=== PATIENT | female | born 1950 | race Caucasian/White ===

== ENCOUNTER → 2018-04-03 12:59 | Outpatient (CLI) | payer MEDICARE, OTHER, SELFPAY ==
--- NOTE | 2018-04-03 13:14 | BI_ITS ---
MAMMOGRAPHY - BILATERAL SCREENING REASON FOR EXAM: Female, 67 years old. Routine annual screening examination. PERTINENT HISTORY: Mother with breast cancer. Aunt with breast cancer. TECHNIQUE: Digital bilateral breast josie (3D mammographic acquisition) in the CC and MLO projections. 2-D mediolateral oblique (MLO) and craniocaudad (CC) views of both breasts were obtained. CAD: Full Field Digital Mammography with Computer Added Detection was performed. COMPARISON: Comparison is made with prior examination dated November 19, 2016. FINDINGS: Breast Composition: The breasts are extremely dense, which lowers the sensitivity of mammography. There are no dominant masses or suspicious calcifications. No other significant abnormalities are identified. There has been no significant change since the prior study. BI/SCREENING MAMM (CAD), BILAT IMPRESSION: Stable bilateral screening mammogram. Yearly follow-up mammogram recommended. (A) ASSESSMENT CATEGORY: BIRADS Category 1: Negative. A letter regarding these results will be sent to the patient by the facility within 30 days. Approximately 10% of breast cancers are not detected by mammography. A normal mammogram should not delay biopsy of a clinically suspicious abnormality. [id number] Electronically Signed: Laron Olivares MD at 12:24 EDT Tel [phone], Service support ,
== END ==
PROVIDERS: Family Provider Family Medicine; PCP Family Medicine; Visit Provider Obstetrics & Gynecology
DX: Z12.31 Encounter for screening mammogram for malignant neoplasm of breast (principal)
CPT/HCPCS: 77063; 77067

== ENCOUNTER → 2019-05-25 | Outpatient (CLI) | payer MEDICARE, OTHER, SELFPAY ==
--- NOTE | 2019-05-25 10:21 | BD_ITS ---
STUDY: DUAL ENERGY X-RAY ABSORPTIOMETRY / DXA REASON FOR EXAM: Female, 68 years old. The patient is postmenopausal. Loss of height. TECHNIQUE: Bone Mineral Density (BMD) measurements of lumbar spine and bilateral hips were obtained. COMPARISON: None. FINDINGS: Lumbar Spine (L1-L4): g/cm2 (0.913) / T-score (-2.1) / Z-score (-0.5) Findings are suggestive of osteopenia with a moderate fracture risk. Left Femur Total: g/cm2 (0.795) / T-score (-1.7) / Z-score (-0.4) Left Femoral Neck: g/cm2 (0.734) / T-score (-2.2) / Z-score (-0.6) Right Femur Total: g/cm2 (0.805) / T-score (-1.6) / Z-score (-0.3) Right Femoral Neck: g/cm2 (0.725) / T-score (-2.2) / Z-score (-0.7) BD/Dexa Bone Density Study IMPRESSION: The patient is considered osteopenic as outlined below according to World Lobo Organization (WHO) criteria with a moderate fracture risk. Reference Information: The T-score is the number of standard deviations above or below the standard which is normal for young adults at their peak bone mineral density. The World Health Organization (WHO) interprets the T-scores as follows: Above -1 Normal bone density Between -1 and -2.5 Osteopenia Equal to / or below -2.5 Osteoporosis As a practical clinical guideline, osteopenia may be graded as follows: Mild -1 through -1.5 Moderate -1.6 through -2.0 Severe -2.1 through -2.4 The Z-score is the number of standard deviations above or below age-matched controls. A Z-score of less than -1.5 would be considered abnormal. References: 1. NIH Osteoporosis and Related Bone Diseases http://www.osteo.org 2. International Society for Clinical Densitometry http://www.iscd.org 3. National Osteoporosis Foundation http://www.nof.org Electronically Signed: Laron Olivares, at 10:20 EDT , Service support ,
--- NOTE | 2019-05-25 10:23 | BI_ITS ---
MAMMOGRAPHY - BILATERAL SCREENING 3-D TOMOSYNTHESIS REASON FOR EXAM: Female, 68 years old. Bilateral Screening 3-D tomosynthesis PERTINENT HISTORY: Family history of breast cancer in mother in ninth decade. TECHNIQUE: 2-D mammograms and 3-D Tomosynthesis of the breast (s) were performed. CAD was performed. COMPARISON: April 03, 2018 FINDINGS: The breast composition is composed of scattered fibroglandular density. Scattered benign calcifications are seen. No dense spiculated masses or suspicious microcalcifications are identified. No architectural distortion is identified. There is no skin thickening or retraction. There has been no significant change since the prior study. BI/SCREEN MAMM (CAD) W/GRANT BILAT IMPRESSION: No mammographic signs of malignancy. Routine yearly mammograms recommended. ASSESSMENT CATEGORY: BIRADS Category 2: Benign. A letter regarding these results will be sent to the patient by the facility within 30 days. FOLLOW UP RECOMMENDATION: Yearly follow up mammogram recommended. (A) Approximately 10% of breast cancers are not detected by mammography. A normal mammogram should not delay biopsy of a clinically suspicious abnormality. Electronically Signed: Jose R Zuniga MD at 14:28 EDT , Service support ,
== END | disposition home or self-care (01) ==
LOC: OPBD 10:18
PROVIDERS: Family Provider Family Medicine; PCP Family Medicine; Referring Provider Family Medicine; Visit Provider Family Medicine
DX: Z12.31 Encounter for screening mammogram for malignant neoplasm of breast (principal); M81.0 Age-related osteoporosis without current pathological fracture; M85.80 Other specified disorders of bone density and structure, unspecified site
CPT/HCPCS: 77063; 77067; 77080

== ENCOUNTER → 2020-06-28 08:17 | Outpatient (CLI) | payer MEDICARE, OTHER, SELFPAY ==
--- NOTE | 2020-06-28 08:20 | BI_ITS ---
MAMMOGRAPHY - BILATERAL SCREENING REASON FOR EXAM: Female, 69 years old. Routine annual screening examination. PERTINENT HISTORY: Mother with breast cancer. Aunts with breast cancer. TECHNIQUE: Digital bilateral breast grant (3D mammographic acquisition) in the CC and MLO projections. 2-D mediolateral oblique (MLO) and craniocaudad (CC) views of both breasts were obtained. CAD: Full Field Digital Mammography with Computer Added Detection was performed. COMPARISON: Comparison is made with prior study dated 05/25/2019 and 04/03/2018. FINDINGS: Breast Composition: The breasts are heterogeneously dense, which may obscure small masses. There are no dominant masses or suspicious calcifications. No other significant abnormalities are identified. There has been no significant change since the prior study. BI/SCREEN MAMM (CAD) W/GRANT BILAT IMPRESSION: Stable bilateral screening mammogram. Yearly follow-up mammogram recommended. (A) ASSESSMENT CATEGORY: BIRADS Category 1: Negative. A letter regarding these results will be sent to the patient by the facility within 30 days. Approximately 10% of breast cancers are not detected by mammography. A normal mammogram should not delay biopsy of a clinically suspicious abnormality. [id number] Electronically Signed: Laron Olivares, at 9:22 EDT , Service support ,
== END ==
PROVIDERS: PCP Family Medicine; Referring Provider Family Medicine; Visit Provider Family Medicine
DX: Z12.31 Encounter for screening mammogram for malignant neoplasm of breast (principal)
CPT/HCPCS: 77063; 77067

== ENCOUNTER 2021-01-24 10:25 | Outpatient (RCR) | payer MEDICARE, OTHER, SELFPAY | END 2021-01-24 23:59 | LOC: IMMUN 10:25 | PROVIDERS: PCP Family Medicine; Referring Provider Family Medicine; Visit Provider Family Medicine | DX: Z23 Encounter for immunization (principal) | CPT/HCPCS: 0011A; 0012A; 91301 ==

== ENCOUNTER → 2021-07-13 07:08 | Outpatient (CLI) | payer MEDICARE, OTHER, SELFPAY ==
--- NOTE | 2021-07-13 07:13 | BI_ITS ---
MAMMOGRAPHY - BILATERAL SCREENING REASON FOR EXAM: Female, 70 years old. Routine annual screening examination. PERTINENT HISTORY: Mother with breast cancer. Aunts with breast cancer. TECHNIQUE: Digital bilateral breast grant (3D mammographic acquisition) in the CC and MLO projections. 2-D mediolateral oblique (MLO) and craniocaudad (CC) views of both breasts were obtained. CAD: Full Field Digital Mammography with Computer Added Detection was performed. COMPARISON: Comparison is made with prior study dated 06/28/2020 and 05/25/2019. FINDINGS: Breast Composition: The breasts are heterogeneously dense, which may obscure small masses. There are no dominant masses or suspicious calcifications. Stable small benign-appearing bilateral axillary lymph nodes. No other significant abnormalities are identified. There has been no significant change since the prior study. BI/SCRN MAMM (CAD)W/GRANT BILAT IMPRESSION: Stable bilateral screening mammogram. Yearly follow-up mammogram recommended. (A) ASSESSMENT CATEGORY: BIRADS Category 2: Benign. A letter regarding these results will be sent to the patient by the facility within 30 days. Approximately 10% of breast cancers are not detected by mammography. A normal mammogram should not delay biopsy of a clinically suspicious abnormality. [id number] Electronically Signed: Laron Olivares MD at 9:13 EDT , Service support ,
== END ==
PROVIDERS: PCP Family Medicine; Referring Provider Family Medicine; Visit Provider Family Medicine
DX: Z12.31 Encounter for screening mammogram for malignant neoplasm of breast (principal)
CPT/HCPCS: 77063; 77067

== ENCOUNTER → 2021-08-29 08:28 | Outpatient (CLI) | payer MEDICARE, OTHER, SELFPAY ==
--- NOTE | 2021-08-29 08:30 | US_ITS ---
STUDY: ULTRASOUND OF THE FEMALE PELVIS - COMPLETE REASON FOR EXAM: Female, 70 years old. pmb- s/p hysterectomy and uterine CA LMP: Patient is postmenopausal. TECHNIQUE: Transabdominal and Transvaginal TECHNICAL QUALITY: Adequate. COMPARISON: None. FINDINGS: The patient is status post hysterectomy. The right ovary is visualized. The right ovary measures cm. There is no right ovarian cyst or ovarian mass. There is no visualized right adnexal mass or complex lesion. There is normal arterial and normal venous vascularity. The ovaries were not visualized. Presumably surgically removed. There is no fluid in the cul-de-sac. US/Transvaginal Non- IMPRESSION: Status post hysterectomy. The ovaries were not visualized. Electronically Signed: Laron Olivares MD at 10:21 EDT , Service support ,
--- NOTE | 2021-08-29 08:30 | US_ITS ---
STUDY: ULTRASOUND OF THE FEMALE PELVIS - COMPLETE REASON FOR EXAM: Female, 70 years old. pmb- s/p hysterectomy and uterine CA LMP: Patient is postmenopausal. TECHNIQUE: Transabdominal and Transvaginal TECHNICAL QUALITY: Adequate. COMPARISON: None. FINDINGS: The patient is status post hysterectomy. The right ovary is visualized. The right ovary measures cm. There is no right ovarian cyst or ovarian mass. There is no visualized right adnexal mass or complex lesion. There is normal arterial and normal venous vascularity. The ovaries were not visualized. Presumably surgically removed. There is no fluid in the cul-de-sac. US/Pelvic (Non ) IMPRESSION: Status post hysterectomy. The ovaries were not visualized. Electronically Signed: Laron Olivares MD at 10:21 EDT , Service support ,
== END ==
PROVIDERS: PCP Family Medicine; Referring Provider Obstetrics & Gynecology; Visit Provider Obstetrics & Gynecology
DX: N93.9 Abnormal uterine and vaginal bleeding, unspecified (principal)
CPT/HCPCS: 76830; 76856

== ENCOUNTER → 2022-07-17 | Outpatient (CLI) | payer MEDICARE, OTHER, SELFPAY ==
--- NOTE | 2022-07-17 09:30 | BD_ITS ---
STUDY: DUAL ENERGY X-RAY ABSORPTIOMETRY / DXA REASON FOR EXAM: Female, 71 years old. M85.80. Patient is postmenopausal. TECHNIQUE: Bone Mineral Density (BMD) measurements of lumbar spine and bilateral hips were obtained. COMPARISON: Comparison is made with prior study dated 05/25/2019. FINDINGS: Lumbar Spine (L1-L4): g/cm2 (0.809) / T-score (-2.2) / Z-score (0.0) Findings are suggestive of osteopenia with a high fracture risk. Left Femur Total: g/cm2 (0.758) / T-score (-1.5) / Z-score (0.0) Left Femoral Neck: g/cm2 (0.608) / T-score (-2.2) / Z-score (-0.3) Right Femur Total: g/cm2 (0.762) / T-score (-1.5) / Z-score (0.1) Right Femoral Neck: g/cm2 (0.557) / T-score (-2.6) / Z-score (-0.8) The T-Scores on the most recent prior examination were: Lumbar Spine (L1-L4): There has been worsening of bone density since the previous examination. Left Femur Total: which represents an improvement of 3.1%. Right Femur Total: which represents an improvement of 2.3%. BD/Dexa Bone Density Study IMPRESSION: The patient is considered osteopenic as outlined below according to World Lobo Organization (WHO) criteria with a high fracture risk. There has been improvement of bone density since the previous examination. Reference Information: The T-score is the number of standard deviations above or below the standard which is normal for young adults at their peak bone mineral density. The World Health Organization (WHO) interprets the T-scores as follows: Above -1 Normal bone density Between -1 and -2.5 Osteopenia Equal to / or below -2.5 Osteoporosis As a practical clinical guideline, osteopenia may be graded as follows: Mild -1 through -1.5 Moderate -1.6 through -2.0 Severe -2.1 through -2.4 The Z-score is the number of standard deviations above or below age-matched controls. A Z-score of less than -1.5 would be considered abnormal. References: 1. NIH Osteoporosis and Related Bone Diseases www osteo.org 2. International Society for Clinical Densitometry www iscd.org 3. National Osteoporosis Foundation www nof.org Electronically Signed: Laron Olivares MD at 12:36 EDT ,
--- NOTE | 2022-07-17 09:37 | BI_ITS ---
MAMMOGRAPHY - BILATERAL SCREENING 3-D TOMOSYNTHESIS REASON FOR EXAM: Female, 71 years old. SCREENING PERTINENT HISTORY: No significant family history. TECHNIQUE: 2-D mammograms and 3-D Tomosynthesis of the breast (s) were performed. CAD was performed. COMPARISON: 07/13/2021 FINDINGS: The breast composition is Extermely dense tissue. Scattered benign calcifications are seen. No dense spiculated masses or suspicious microcalcifications are identified. No architectural distortion is identified. There is no skin thickening or retraction. There has been no significant change since the prior study. BI/SCRN MAMM (CAD)W/GRANT BILAT IMPRESSION: No mammographic signs of malignancy. Routine yearly mammograms recommended. ASSESSMENT CATEGORY: BIRADS Category 1: Negative. A letter regarding these results will be sent to the patient by the facility within 30 days. FOLLOW UP RECOMMENDATION: Yearly follow up mammogram recommended. (A) Approximately 10% of breast cancers are not detected by mammography. A normal mammogram should not delay biopsy of a clinically suspicious abnormality. Electronically Signed: Douglas Bowie MD at 10:21 EDT ,
== END | disposition home or self-care (01) ==
LOC: OPBD 09:19
PROVIDERS: PCP Family Medicine; Referring Provider Family Medicine; Visit Provider Family Medicine
DX: Z12.31 Encounter for screening mammogram for malignant neoplasm of breast (principal); M85.80 Other specified disorders of bone density and structure, unspecified site; Z78.0 Asymptomatic menopausal state
CPT/HCPCS: 77063; 77067; 77080

== ENCOUNTER → 2023-08-08 | Outpatient (CLI) | payer MEDICARE, OTHER, SELFPAY ==
--- NOTE | 2023-08-08 08:11 | BI_ITS ---
MAMMOGRAPHY - BILATERAL SCREENING REASON FOR EXAM: Female, 72 years old. Routine annual screening examination. PERTINENT HISTORY: Mother with breast cancer. Aunt with breast cancer. TECHNIQUE: Digital bilateral breast grant (3D mammographic acquisition) in the CC and MLO projections. 2-D mediolateral oblique (MLO) and craniocaudad (CC) views of both breasts were obtained. CAD: Full Field Digital Mammography with Computer Added Detection was performed. COMPARISON: Comparison is made with prior study dated July 17, 2022 and July 13, 2021 FINDINGS: Breast Composition: The breasts are extremely dense, which lowers the sensitivity of mammography. There are no dominant masses or suspicious calcifications. No other significant abnormalities are identified. There has been no significant change since the prior study. BI/SCRN MAMM (CAD)W/GRANT BILAT IMPRESSION: Stable bilateral screening mammogram. Yearly follow-up mammogram recommended. (A) ASSESSMENT CATEGORY: BIRADS Category 1: Negative. A letter regarding these results will be sent to the patient by the facility within 30 days. Approximately 10% of breast cancers are not detected by mammography. A normal mammogram should not delay biopsy of a clinically suspicious abnormality. [id number] Electronically Signed: Laron Olivares MD at 10:20 EDT ,
== END | disposition home or self-care (01) ==
LOC: OPBI 08:09
PROVIDERS: PCP Family Medicine; Referring Provider Family Medicine; Visit Provider Family Medicine
DX: Z12.31 Encounter for screening mammogram for malignant neoplasm of breast (principal); Z80.3 Family history of malignant neoplasm of breast
CPT/HCPCS: 77063; 77067

== ENCOUNTER → 2024-01-23 | Outpatient (CLI) | payer MEDICARE, OTHER, SELFPAY ==
[2024-01-23 12:28] LABS: Absolute Lymphocyte Count 1.22 X10^3/uL (0.83-4.51); Absolute Neutrophil Count 2.8 X10^3/uL (2.0-7.7); Basophil# 0.02 X10^3/uL; Basophil% 0.4 % (0-1); Eosinophil# 0.21 X10^3/uL; Eosinophils% 4.6 % (0-5); Hematocrit 44.3 % (37-47); Hemoglobin 14.2 g/dL (12.0-15.0); Lymphocyte # 1.22 X10^3/ul (0.83-4.51); Lymphocyte % 26.6 % (19-41); Mean Corp Hgb Conc 32.1 g/dL (32-36); Mean Corpuscular Volume 93.5 fL (81-99); Mean Platelet Vol. 11.1 fl (6.2-12.0); Monocyte# 0.34 X10^3/uL; Monocyte% 7.4 % (0-10); NRBC Flagged by Analyzer 0 % (0-5); Neutrophil # 2.79 X10^3/uL (2.7-7.7); Neutrophil % 60.8 % (47-70); Platelet Count 199 K/mm3 (150-450); RBC Distribution Width CV 13.1 % (11.6-14.6); RBC Distribution Width SD 44.9 fl (35.1-43.9); Red Blood Count 4.74 M/mm3 (4.2-5.4); White Blood Count 4.6 K/mm3 (4.4-11.0)
[2024-01-23 12:47] LABS: AST(SGOT) 17 U/L (15-37); Alanine Aminotransfer ALT/SGPT 25 U/L (13-56); Albumin, Serum 3.6 g/dL (3.2-5.0); Alkaline Phosphatase 83 U/L (45-117); Anion Gap 4 (5-15); BUN 19 mg/dL (7-18); BUN/Creat Ratio 18.4 RATIO (10-20); Calcium,Total 9.5 mg/dL (8.5-10.1); Chloride 107 mmol/L (98-107); Creatinine, Serum 1.03 mg/dL (0.55-1.02); EST Glomerular Filtration Rate 56 mL/min (>60); Est Glom Filt Rate - Afr Amer 68 mL/min (>60); Globulin 3.6 g/dL (2.2-4.2); Glucose 95 mg/dL (74-106); Potassium 4.2 mmol/L (3.5-5.1); Protein, Total 7.2 g/dL (6.4-8.2); Sodium Level 141 mmol/L (136-145)
== END | disposition home or self-care (01) ==
LOC: BFHLAB 10:18
PROVIDERS: PCP Family Medicine; Visit Provider Nurse Practitioner Family
DX: R42 Dizziness and giddiness (principal)
CPT/HCPCS: 36415; 80053; 85025

== ENCOUNTER 2024-07-03 09:00 | Inpatient (IN) | payer MEDICARE, OTHER, SELFPAY ==
[2024-07-03] VITALS (12 sets, daily range): BP systolic 95–156; BP diastolic 52–127; PULSE 70–155; RESP 14–30; TEMP 36.1–36.8; O2SAT 95–99; BMI 22.3; BMI 22.0
--- NOTE | 2024-07-03 09:19 | RAD_ITS ---
STUDY: X-RAY CHEST REASON FOR EXAM: Female, 73 years old. cad TECHNIQUE: Single AP portable view of the chest. COMPARISON: None. FINDINGS: Moderate patchy interstitial infiltrates are present in the bilateral mid to lower lung maciel likely due to superimposed pneumonia on background of chronic interstitial lung disease/pneumonitis. Cystic emphysematous changes and mild hyperinflation noted. No visualized pleural effusion. The heart is mildly enlarged. Normal mediastinum and moncho. Normal visualized pulmonary arteries. There is atherosclerotic calcification of the aortic arch with tortuosity. There are diffuse degenerative changes of the visualized thoracic spine. Normal visualized ribs, clavicles, and shoulders. There is no demonstrated abnormality of the visualized soft tissue structures of the upper abdomen. RAD/Chest 1 View (Portable) IMPRESSION: 1. Moderate patchy interstitial infiltrates are present in the bilateral mid to lower lung maciel likely due to superimposed pneumonia on background of chronic interstitial lung disease/pneumonitis. Cystic emphysematous changes and mild hyperinflation noted. Electronically Signed: Vinod Hernández MD at 10:16 EDT ,
--- NOTE | 2024-07-03 09:20 | EKG12_ITS ---
Test Reason : PALPS Blood Pressure : / mmHG Vent. Rate : 159 BPM Atrial Rate : 147 BPM P-R Int : 000 ms QRS Dur : 116 ms QT Int : 302 ms P-R-T Axes : 000 044 226 degrees QTc Int : 491 ms Critical Test Result: High HR , STEMI AFIB WITH RVR Left ventricular hypertrophy with QRS widening and repolarization abnormality ( Sokolow-Barba , Kahlil l product ) Abnormal ECG Confirmed by Alonso Falcon ([id number]), graphics editor COLTEN HOLLY ([id number]) on 07/05/2024 2:15:09 PM Referred By: TIA Confirmed By:Alonso Falcon
--- NOTE | 2024-07-03 09:20 | EKG12_ITS ---
Test Reason : PALPS Blood Pressure : / mmHG Vent. Rate : 154 BPM Atrial Rate : 000 BPM P-R Int : 000 ms QRS Dur : 116 ms QT Int : 264 ms P-R-T Axes : 000 045 228 degrees QTc Int : 422 ms Critical Test Result: High HR Atrial fibrillation with rapid ventricular response with premature ventricular or aberrantly conducte d complexes Left ventricular hypertrophy with QRS widening ( Sokolow-Barba , [place] product ) Cannot rule out Septal infarct , age undetermined ST & T wave abnormality, consider lateral ischemia Abnormal ECG Confirmed by Alonso Falcon ([id number]), avid editor COLTEN HOLLY ([id number]) on 07/05/2024 2:14:25 PM Referred By: TIA Confirmed By:Alonso Falcon
[2024-07-03] MEDS: dilTIAZem 25 MG/5 ML Vial 10 MG IV BOLUS (09:25)
[2024-07-03 09:33] LABS: Absolute Lymphocyte Count 2.05 X10^3/uL (0.83-4.51); Absolute Neutrophil Count 4.2 X10^3/uL (2.0-7.7); Basophil# 0.04 X10^3/uL; Basophil% 0.6 % (0-1); Eosinophil# 0.13 X10^3/uL; Eosinophils% 1.9 % (0-5); Hematocrit 46.4 % (37-47); Hemoglobin 14.5 g/dL (12.0-15.0); Lymphocyte # 2.05 X10^3/ul (0.83-4.51); Lymphocyte % 29.8 % (19-41); Mean Corp Hgb Conc 31.3 g/dL (32-36); Mean Corpuscular Hgb 28.6 pg (27.0-32.0); Mean Corpuscular Volume 91.5 fL (81-99); Mean Platelet Vol. 10.8 fl (6.2-12.0); Monocyte# 0.44 X10^3/uL; Monocyte% 6.4 % (0-10); NRBC Flagged by Analyzer 0 % (0-5); Neutrophil # 4.21 X10^3/uL (2.7-7.7); Platelet Count 220 K/mm3 (150-450); RBC Distribution Width CV 13.3 % (11.6-14.6); RBC Distribution Width SD 44.5 fl (35.1-43.9); Red Blood Count 5.07 M/mm3 (4.2-5.4); White Blood Count 6.9 K/mm3 (4.4-11.0)
[2024-07-03 09:53] LABS: ALB/GLOB Ratio 0.9 RATIO (0.9-2.4); AST(SGOT) 185 U/L (15-37); Alanine Aminotransfer ALT/SGPT 192 U/L (13-56); Albumin, Serum 3.7 g/dL (3.2-5.0); Alkaline Phosphatase 125 U/L (45-117); Anion Gap 4 (5-15); BUN 23 mg/dL (7-18); BUN/Creat Ratio 18.4 RATIO (10-20); Calcium,Total 9.2 mg/dL (8.5-10.1); Chloride 111 mmol/L (98-107); Creatinine, Serum 1.25 mg/dL (0.55-1.02); EST Glomerular Filtration Rate 45 mL/min (>60); Est Glom Filt Rate - Afr Amer 54 mL/min (>60); Estimated Creatinine Clearance 36.61 ml/min; Globulin 3.9 g/dL (2.2-4.2); Glucose 101 mg/dL (74-106); Potassium 4.1 mmol/L (3.5-5.1); Protein, Total 7.6 g/dL (6.4-8.2); Sodium Level 142 mmol/L (136-145); Thyroid Stim Hormone (TSH) 8.94 uIU/mL (0.358-3.74); Troponin-I HS 26 pg/mL (3.0-54.0)
[2024-07-03 10:04] LABS: BNP,B-Type NATRIURETIC PEPTIDE 741.1 pg/mL (0-100)
[2024-07-03 10:33] LABS: Bacteria 0 SEEN /hpf (None Seen); Mucous, Urine 0 SEEN /hpf (<or=2+); Red Blood Cells-Urine 0 SEEN /hpf (0-5); Squamous Epithelial Cells - UA 0 SEEN /hpf (5-10); White Blood Cells 0 SEEN /hpf (0-5)
[2024-07-03 10:45] LABS: Color, Urine Yellow (Yellow); Glucose, Dipstick Normal (Normal); Ketone-Dipstick Negative (Negative); Leukocyte Esterase-Dipstick 25 /ul (Negative); Nitrite-Dipstick Negative (Negative); Occult Blood-Urine 10 /ul (Negative); Protein-Dipstick 15 mg/dl (Negative); Urine Bilirubin Dipstick Negative (Negative); Urine Clarity Clear (Clear); Urine Urobilinogen Normal (Normal)
[2024-07-03] MEDS: Furosemide 40 MG/4 ML Vial IV ×2 (10:47→17:04)
--- NOTE | 2024-07-03 10:51 | EX.ED.DYSGE1 ---
HPI History of Present Illness Chief Complaint: Palpitations Narrative Narrative: 73-year-old female presents with heart palpitations that she has had for possibly up to a week. Her symptoms began to become more intense on , 3 days ago. She denies any chest pain, but states she feels her heart flip-flopping in her chest. No leg swelling, no fevers or chills, no exacerbating or alleviating factors. She does states that she has history of heart murmur, and has irregular heartbeat as she has had it for years. Her who is a retired ER nurse states that she has more of a mitral valve incompetence causing her murmur. She has noticed this feeling almost consistently for the last 3 days. She may have more of a generalized weakness as well. She is supposed to go on vacation tomorrow, so she wanted to come to the ED and get checked as to why she had this feeling in her chest. [facility] Medical History Osteopenia Hyperlipidemia Home Medications ?Medication ?Instructions ?Recorded ?Last Taken ?Type calcium carbonate (Calcium 500) 500 mg PO DAILY 09/04/21 Unknown History simvastatin 20 mg tablet 20 mg PO DAILY 09/04/21 Unknown History flaxseed oil .ROUTE 07/03/24 Unknown History Allergy/AdvReac Type Severity Reaction Status Date / Time No Known Allergies Allergy Verified 07/03/24 09:03 Family History Mother Breast cancer Congestive heart failure Osteoporosis Grandmother Diabetes Osteoporosis Surgical History H/O dilation and curettage History of hysterectomy Social History household members: spouse and children current occupational status: retired history of recent travel: No Smoking Status: Never smoker alcohol intake: current alcohol intake frequency: holidays/special occasions only substance use type: does not use what type of physical activity do you participate in: walking, yoga and weight training frequency: 3-4 times per week seatbelt use: always do you feel safe at home: Yes additional social history: - Dylan ROS ROS ED ROS Narrative Constitutional: No fever, no chills. Occasional fatigue. Generalized weakness. HEENT: No sore throat. No neck pain. No loss of vision. No rhinorrhea. Cardiovascular: No chest pain. Questionable palpitations she feels her heart flip-flopping in her chest. No pedal edema. Respiratory: No cough, no shortness of breath. Abdominal: No abdominal pain. No nausea. No vomiting. Genitourinary: No dysuria. No hematuria. Musculoskeletal: No myalgias. No arthralgias. Neurologic: No headaches. No dizziness. No lightheadedness. Skin: No rash. No change in color. Psychiatric: No depression. No anxiety. EXAM Physical Exam Narrative Exam Narrative: Afebrile. Vital signs noted. HEENT: Normocephalic. Atraumatic. PERRL, EOMI. Neck soft and supple. No point tenderness or step off. Cardiovascular: Irregular tachycardia no rubs, or gallops appreciated. Respiratory: No tachypnea. Lungs clear to auscultation bilaterally. Gastrointestinal: Abdomen soft, nontender, with normoactive bowel sounds. No rebound or guarding. Neurological: Awake. Alert. Nonfocal, nonlateralizing. Skin: No rash. Normal color. No pallor. Musculoskeletal: No pedal edema. Full range of motion extremities. Const Vital Signs: 07/03/24 09:01 07/03/24 09:05 07/03/24 09:14 Temperature 97.2 F L Temperature Source Temporal Pulse Rate 89 155 H Respiratory Rate 16 30 H Respiratory Effort Normal Non-Labored Blood Pressure 156/127 H 126/106 H Blood Pressure Mean 136 112 Pulse Ox 97 95 Oxygen Delivery Method Room Air Room Air 07/03/24 09:36 07/03/24 11:00 Temperature Temperature Source Pulse Rate 107 H 105 H Respiratory Rate 18 Respiratory Effort Blood Pressure 127/93 H Blood Pressure Mean 104 Pulse Ox 98 Oxygen Delivery Method Room Air MDM MDM MDM Narrative Medical decision making narrative: Differential diagnosis includes but not limited to supraventricular tachycardia versus atrial fibrillation versus sinus tachycardia. Patient was placed on the monitor, and initial EKG was obtained and interpreted by myself independently as supraventricular tachycardia at [address] changes. No STEMI. As she has never had problems with atrial fibrillation in the past and just noted irregular heartbeat, she was administered adenosine 6 mg intravenously. Underlying rhythm appeared to be more of an atrial fibrillation versus flutter. She was administered Cardizem 10 mg intravenously with a resultant heart rate at 107 bpm. I reviewed her laboratory work and she has normal white count of 6.9 with hemoglobin 14.5, hematocrit 46.4, platelet count normal at 220. Electrolyte panel shows chloride elevated at 111 which I think is nonspecific with potassium 4.1, BUN of 23 and creatinine 1.25. Glucose is appropriately elevated at 101. LFTs are elevated at 185 and 192 with an alk phos of 125. High-sensitivity troponin is normal at 26, BNP is elevated at 741.1. TSH is also high at 8.94. Chest x-ray in 1 view interpreted by myself does show bilateral fluffy infiltrates more consistent with CHF when combined with her elevated BNP. She was administered Lasix 40 mg intravenously. This may be that she has been an atrial fibrillation/flutter with a heart rate elevated for a longer period of time. As this is new onset, I do feel that she requires admission to the hospital. Patient discussed with the hospitalist for admission. She is in stable condition. History & Record Review Discussion w/independent historian: Patient and Family Lab Data Attestation: I reviewed the patient's lab results. Labs: Laboratory Results - last 24 hr 07/03/24 07/03/24 09:15 10:25 WBC 6.9 RBC 5.07 Hgb 14.5 Hct 46.4 MCV 91.5 MCH 28.6 MCHC 31.3 L RDW Std Deviation 44.5 H RDW Coeff of Sandi 13.3 Plt Count 220 MPV 10.8 Immature Gran % (Auto) 0.300 Neut % (Auto) 61.0 Lymph % (Auto) 29.8 [place] % (Auto) 6.4 Eos % (Auto) 1.9 Baso % (Auto) 0.6 Absolute Neuts (auto) 4.2 Absolute Lymphs (auto) 2.05 Nucleated RBC % 0 Sodium 142 Potassium 4.1 Chloride 111 H Carbon Dioxide 27.0 Anion Gap 4 L BUN 23 H Creatinine 1.25 H Estim Creat Clear Calc 36.61 Est GFR (MDRD) Af Amer 54 L Est GFR (MDRD) Non-Af 45 L BUN/Creatinine Ratio 18.4 Glucose 101 Calcium 9.2 Magnesium 2.0 Total Bilirubin 1.30 H AST 185 H ALT 192 H Alkaline Phosphatase 125 H Troponin I High Sens 26 B-Natriuretic Peptide 741.1 H Total Protein 7.6 Albumin 3.7 Globulin 3.9 Albumin/Globulin Ratio 0.9 TSH 8.94 H Urine Color Yellow Urine Clarity Clear Urine pH 7.0 Ur Specific [place] 1.010 Urine Protein 15 H Urine Glucose (UA) Normal Urine Ketones Negative Urine Occult Blood 10 H Urine Nitrite Negative Urine Bilirubin Negative Urine Urobilinogen Normal Ur Leukocyte Esterase 25 H Urine RBC 0 SEEN Urine WBC 0 SEEN Ur Squamous Epith Cells 0 SEEN Urine Bacteria 0 SEEN Hyaline Casts 0-5 SEEN Urine Mucus 0 SEEN Radiography Diagnostic Testing: Clinical Impression(s) from Imaging Studies Chest X-Ray 07/03/24 09:19 IMPRESSION: 1. Moderate patchy interstitial infiltrates are present in the bilateral mid to lower lung maciel likely due to superimposed pneumonia on background of chronic interstitial lung disease/pneumonitis. Cystic emphysematous changes and mild hyperinflation noted. Electronically Signed: Vinod Hernández MD at 10:16 EDT Reading Location ID and State: [address] [place] [address] , Service support , Management Discussion w/another healthcare provider: Hospitalist (Dr. Park) Discharge Plan Dx/Rx/DC Orders Clinical Impression: New onset atrial fibrillation, CHF (congestive heart failure), Elevated TSH, Elevated LFTs Disposition Disposition: Acute Care [facility]
--- NOTE | 2024-07-03 10:57 | EKG12_ITS ---
Test Reason : REPEAT Blood Pressure : / mmHG Vent. Rate : 118 BPM Atrial Rate : 000 BPM P-R Int : 000 ms QRS Dur : 116 ms QT Int : 292 ms P-R-T Axes : 000 039 -37 degrees QTc Int : 409 ms Atrial fibrillation with rapid ventricular response Left ventricular hypertrophy with QRS widening and repolarization abnormality ( Sokolow-Barba , Kahlil l product ) Cannot rule out Septal infarct , age undetermined Abnormal ECG Confirmed by Alonso Falcon ([id number]), sports editor COLTEN HOLLY ([id number]) on 07/05/2024 2:13:55 PM Referred By: Confirmed By:Alonso Falcon
[2024-07-03 11:04] LABS: Hyaline Cast 0-5 SEEN /lpf (0-5)
--- NOTE | 2024-07-03 11:13 | PCM.HP.STD ---
HPI - General General Date of Admission: 07/03/24 Date of Service: 07/03/24 Chief Complaint: Palpitations and shortness of breath with exertion HPI Narrative SAMY THURMAN, is a 73 F who presented to [facility] ED on 07/03/2024 with palpitations and shortness of breath with exertion. Patient states that the palpitations have been ongoing for about 1 week. She previously had history of a irregular heartbeat of unclear significance so she did not think much of the palpitations at first. However, they became more intense over the past 2 to 3 days and she began to develop some shortness of breath with exertion yesterday. Was found to be tachycardic on arrival to the ED, EKG showed rate of 159 bpm with concern for SVT versus A-fib. Patient was given IV adenosine 6 mg and per ED physician, underlying rhythm appears to be A-fib versus a flutter. She was given a dose of IV Cardizem 10 mg with improvement in heart rate to 107 bpm. Chest x-ray showed fluffy bilateral infiltrates that appeared consistent with CHF. Labs were notable for BNP 741, TSH 8.94, AST 185, ALT 192, BUN 23, creatinine 1.25 (baseline around 0.7). Given new onset A-fib with concern for heart failure, hospitalist was contacted for admission. I saw the patient at bedside in the ED, was present. 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 He notes that the patient has a history of mitral valve insufficiency seen on an echo many years ago that has not caused any issues; she otherwise has no other heart related issues. Patient otherwise states she is in good health, lives at home with and has good functional status at baseline. She has been told that her thyroid level was mildly elevated at previous PCP visits but no medication was needed. Only other home medication currently is a low-dose statin medication. Patient denies any fevers or chills today. Denies any pain or discomfort. No other acute concerns at this time. [facility] Medical History Osteopenia Hyperlipidemia Home Medications ?Medication ?Instructions ?Recorded ?Last Taken ?Type calcium carbonate (Calcium 500) 500 mg PO DAILY supplement 09/04/21 07/02/24 History simvastatin 20 mg tablet 20 mg PO DAILY 09/04/21 Unknown History flaxseed oil See Rx Instructions .Route 07/03/24 07/03/24 History .COMPLEX supplement Allergy/AdvReac Type Severity Reaction Status Date / Time No Known Allergies Allergy Verified 07/03/24 09:03 Family History Mother Breast cancer Congestive heart failure Osteoporosis Grandmother Diabetes Osteoporosis Surgical History H/O dilation and curettage History of hysterectomy Social History household members: spouse and children current occupational status: retired history of recent travel: No Smoking Status: Never smoker alcohol intake: current alcohol intake frequency: holidays/special occasions only substance use type: does not use what type of physical activity do you participate in: walking, yoga and weight training frequency: 3-4 times per week seatbelt use: always do you feel safe at home: Yes additional social history: - Dylan ROS Constitutional Constitutional: Denies chills, fatigue, fever(s) or weakness Eyes Eyes: Denies change in vision Cardiovascular Cardiovascular: Reports dyspnea on exertion and palpitations; Denies chest pain, edema or lightheadedness Respiratory/Chest Respiratory/Chest: Denies cough, shortness of breath at rest or wheezing Gastrointestinal Gastrointestinal: Denies abdominal pain Neurologic Neurologic: Denies dizziness, focal weakness or headache(s) Vital Signs Vital Signs Vital Signs: 07/03/24 09:01 07/03/24 09:05 07/03/24 09:14 Temperature 97.2 F L Temperature Source Temporal Pulse Rate 89 155 H Respiratory Rate 16 30 H Respiratory Effort Normal Non-Labored Blood Pressure 156/127 H 126/106 H Blood Pressure Mean 136 112 Pulse Ox 97 95 Oxygen Delivery Method Room Air Room Air 07/03/24 09:36 07/03/24 11:00 Temperature Temperature Source Pulse Rate 107 H 105 H Respiratory Rate 18 Respiratory Effort Blood Pressure 127/93 H Blood Pressure Mean 104 Pulse Ox 98 Oxygen Delivery Method Room Air Weight Weight: 60.781 kg Body Mass Index (BMI) 22.3 Physical Exam Const alert, oriented x3, no apparent distress, average body habitus, healthy appearing and well nourished Constitutional Narrative: Pleasant elderly female, appears younger than stated age, mildly fatigued appearing but otherwise sitting up comfortably in bed, conversing normally, in no acute distress. General Appearance: cooperative, comfortable, well kempt and well developed HEENT normocephalic, head/scalp atraumatic, hearing grossly normal bilaterally, nasal mucous membranes and turbinates normal and moist oral mucous membranes Eyes PERRL, EOMs intact bilaterally and conjunctivae normal Neck full ROM and no JVD Chest inspection of chest normal Resp normal respiratory effort and no use of accessory muscles Resp Narrative: Diminished breath sounds in bilateral lung bases with mild crackles noted in mid lung zones bilaterally. No wheezing noted. Breathing comfortably on room air at rest. Cardio no murmurs and peripheral pulses 2+ throughout Cardio Narrative: A-fib, rate controlled. GI normal to inspection, nondistended, normoactive bowel sounds, soft to palpation, non-tender and non-distended Back/Spine normal ROM Extremity normal to inspection, full ROM and no pedal edema Skin no rashes or lesions noted Neuro moves all extremities and no focal motor deficits Speech: speech normal Psych mental status grossly normal Results Lab / Micro Data 07/03/24 09:15 07/03/24 09:15 Labs: Laboratory Results - last 24 hr 07/03/24 09:15: WBC 6.9, RBC 5.07, Hgb 14.5, Hct 46.4, MCV 91.5, MCH 28.6, MCHC 31.3 L, RDW Std Deviation 44.5 H, RDW Coeff of Sandi 13.3, Plt Count 220, MPV 10.8, Immature Gran % (Auto) 0.300, Neut % (Auto) 61.0, Lymph % (Auto) 29.8, Thomas % (Auto) 6.4, Eos % (Auto) 1.9, Baso % (Auto) 0.6, Absolute Neuts (auto) 4.2, Absolute Lymphs (auto) 2.05, Nucleated RBC % 0, Sodium 142, Potassium 4.1, Chloride 111 H, Carbon Dioxide 27.0, Anion Gap 4 L, BUN 23 H, Creatinine 1.25 H, Estim Creat Clear Calc 36.61, Est GFR (MDRD) Af Amer 54 L, Est GFR (MDRD) Non-Af 45 L, BUN/Creatinine Ratio 18.4, Glucose 101, Calcium 9.2, Magnesium 2.0, Total Bilirubin 1.30 H, AST 185 H, ALT 192 H, Alkaline Phosphatase 125 H, Troponin I High Sens 26, B-Natriuretic Peptide 741.1 H, Total Protein 7.6, Albumin 3.7, Globulin 3.9, Albumin/Globulin Ratio 0.9, TSH 8.94 H 07/03/24 10:25: Urine Color Yellow, Urine Clarity Clear, Urine pH 7.0, Ur Specific Churdan 1.010, Urine Protein 15 H, Urine Glucose (UA) Normal, Urine Ketones Negative, Urine Occult Blood 10 H, Urine Nitrite Negative, Urine Bilirubin Negative, Urine Urobilinogen Normal, Ur Leukocyte Esterase 25 H, Urine RBC 0 SEEN, Urine WBC 0 SEEN, Ur Squamous Epith Cells 0 SEEN, Urine Bacteria 0 SEEN, Hyaline Casts 0-5 SEEN, Urine Mucus 0 SEEN Imaging Radiology Impression Chest X-Ray 07/03/24 09:19 IMPRESSION: 1. Moderate patchy interstitial infiltrates are present in the bilateral mid to lower lung maciel likely due to superimposed pneumonia on background of chronic interstitial lung disease/pneumonitis. Cystic emphysematous changes and mild hyperinflation noted. Electronically Signed: Vinod Hernández MD at 10:16 EDT Reading Location ID and State: [facility] / [place] , Service support , Assessment & Plan Assessment/Plan (1) New onset atrial fibrillation: (2) CHF (congestive heart failure): (3) Elevated TSH: (4) Elevated LFTs: PLAN: Plan Patient is a 73-year-old female who presented [facility] ED with palpitations and shortness of breath with exertion. 1. New onset A-fib with RVR, concern for new onset heart failure ? Admit under inpatient status to PCU. Had good rate improvement in the ED with IV Cardizem bolus, no need for Cardizem drip at this time. Will start p.o. Lopressor 25 mg twice daily. IV Lopressor 5 mg every 6 hours as needed ordered for heart rate greater than 130. Echo ordered. Given elevated BNP and CHF findings on chest x-ray, have concern for new onset heart failure. Given 1 dose of IV Lasix 40 mg in the ED, will start IV Lasix 40 mg twice daily for now. Monitor daily BMP and urine output. [id number] score of 2 (age and sex); given concern for more longstanding A-fib leading to tachycardia induced cardiomyopathy, will start anticoagulation with Eliquis 5 mg twice daily. Patient and were agreeable to starting anticoagulation. Continue to monitor cardiac telemetry. Will consider cardiology consult as needed. 2. Mild SEVEN ? Creatinine 1.25 on admit, baseline around 0.7-0.8. Suspect prerenal etiology due to cardiorenal syndrome. Treating with IV Lasix as noted above. Monitor daily BMP and urine output. 3. Elevated LFTs ? T. bili 1.30, AST 185, ALT 192, alk phos 125 on admit. Previous LFTs in January normal. No abdominal pain. Suspect mild congestive hepatopathy in setting of likely new onset heart failure. Right upper quadrant ultrasound ordered for further evaluation. Trend daily LFTs. 4. Mild hypothyroidism ? TSH 8.94, free T4 0.79 (borderline low) on admit. Thyroid antibodies ordered. Per patient request, will hold on starting Synthroid for now but would recommend close outpatient follow-up on discharge. 5. Hyperlipidemia ? On home simvastatin 20 mg daily. Repeat lipid panel on admit showed total cholesterol 190, LDL 86, HDL 83. Continue home simvastatin. DVT prophylaxis: Not indicated, on Eliquis CODE STATUS: Full code, verified Expected disposition: Home, 2 to 3 days Total clinical time spent by myself addressing the patient's medical issues, reviewing all the data, and collaborating with patient's care team: 75 minutes. Charges/Coding Visit Charges Inpatient E&M: 12516 Init Hosp L3
--- NOTE | 2024-07-03 11:13 | NURSING ---
DR RODRIGUEZ FOR DR WEBER
--- NOTE | 2024-07-03 11:15 | NURSING ---
PCU MOSTELLER [facility]NS[facility] ATRIAL FIBULATION
--- NOTE | 2024-07-03 11:20 | ECHOD_ITS ---
Reason For Study: A. fib/flutter Procedure This was a 2D Doppler, Color Flow transthoracic echocardiogram. Exam performed portable in patient room. Left Ventricle Severely dilated left ventricle. Mild concentric left ventricular hypertrophy. The left ventricular ejection fraction is 20 %. There is severe global hypokinesis of the left ventricle. Right Ventricle Normal RV size. Normal systolic function. Atria The left atrium is moderately enlarged. Normal right atrium. Mitral Valve Bileaflet diffuse mitral valve thickening. Moderate (2+) eccentric mitral valve insufficiency. Tricuspid Valve Normal tricuspid valve. Mild to moderate (1-2+) tricuspid valve insufficiency. Pulmonary artery systolic pressure is 43 mmHg. Aortic Valve Trisinus/trileaflet aortic valve. Pulmonic Valve Normal pulmonic valve. Great Vessels Normal aortic root. The pulmonary artery is normal size. Normal inferior vena cava. and partially collapses. Pericardium/Pleural No pericardial effusion. MMode/2D Measurements & Calculations LVIDd: 6.3 cm IVSd: 1.3 cm LVOT diam: 1.8 cm LVIDs: 5.7 cm LVPWd: 1.2 cm LVOT area: 2.6 cm2 RVDd: 3.0 cm FS: 9.0 % Ao root diam: 3.4 cm LAV(MOD-bp): 135.3 ml LVAd ap4: 38.4 cm2 LAV(MOD-bp) Indexed: 81.1 ml/m2 LVLd ap4: 7.5 cm LAV(MOD-sp2): 164.5 ml EDV(MOD-sp4): 162.5 ml LAV(MOD-sp4): 110.9 ml EDV(sp4-el): 167.7 ml LVAs ap4: 31.6 cm2 LVLs ap4: 6.7 cm ESV(MOD-sp4): 125.6 ml ESV(sp4-el): 126.5 ml EF(MOD-sp4): 22.7 % EF(sp4-el): 24.6 % LVAd ap2: 40.6 cm2 SV(MOD-sp4): 36.8 ml SV(MOD-sp2): 40.9 ml LVLd ap2: 8.0 cm EDV(MOD-sp2): 170.4 ml EDV(sp2-el): 175.7 ml LVAs ap2: 35.1 cm2 LVLs ap2: 7.5 cm ESV(MOD-sp2): 129.6 ml ESV(sp2-el): 138.4 ml EF(MOD-sp2): 24.0 % SV(sp4-el): 41.3 ml LA dimension(2D): 5.9 cm LA A4 area: 30.6 cm2 RA A4 area: 12.3 cm2 TAPSE: 1.5 cm Time Measurements MV dec time: 0.15 sec Doppler Measurements & Calculations MV E max tami: 128.7 cm/sec Ao V2 max: 127.8 cm/sec LV V1 max: 100.5 cm/sec Ao max P.6 mmHg LV V1 max P.1 mmHg Ao V2 mean: 92.6 cm/sec LV V1 mean P.4 mmHg Ao mean P.8 mmHg LV V1 mean: 72.2 cm/sec Ao V2 VTI: 19.3 cm LV V1 VTI: 12.9 cm AV (velocity ratio): 0.67 SAGAR(I,D): 1.7 cm2 SAGAR(V,D): 2.0 cm2 SV(LVOT): 33.6 ml PA V2 max: 78.5 cm/sec TR max tami: 314.1 cm/sec PA max PG (full): 1.0 mmHg TR max P.5 mmHg ECHO/Echo Complete Interpretation Summary Severely dilated left ventricle. Mild concentric left ventricular hypertrophy. The left ventricular ejection fraction is 20 %. Moderate (2+) eccentric mitral valve insufficiency. Pulmonary artery systolic pressure is 43 mmHg. Ordering Physician: Edgar Park Referring Physician: Hortensia Wesley Performed By: Esther Johansen RDCS
[2024-07-03] MEDS: dilTIAZem CD 120 MG Capsule PO (11:41)
[2024-07-03 11:47] LABS: T4 Free Direct 0.79 ng/dL (0.76-1.46)
--- NOTE | 2024-07-03 12:09 | US_ITS ---
EXAM: US ABDOMEN LIMITED, RIGHT UPPER QUADRANT CLINICAL INDICATION: elevated LFTs, eval RUQ TECHNIQUE: Real-time ultrasound of the right upper quadrant with image documentation. COMPARISON: No relevant prior studies available. FINDINGS: LIVER: Unremarkable. 16.2 cm craniocaudal. There is normal echotexture. No focal hepatic lesion. No intrahepatic biliary ductal dilation. Patent main portal vein, normal direction of flow. Visualized hepatic veins. GALLBLADDER: Unremarkable. Well distended. 8.4 cm in length and 2.4 cm AP. No shadowing gallstone. No gallbladder wall thickening is demonstrated. No pericholecystic fluid. Negative sonographic Patel''s sign. COMMON BILE DUCT: Unremarkable as visualized. 3.4 mm near the deo. The proximal common bile duct is within normal limits for the patient''s age. PANCREAS: Unremarkable as visualized. No focal abnormality is demonstrated in the pancreas. No pancreatic ductal dilatation. RIGHT KIDNEY: Unremarkable. 9.7 cm x 3.6 cm x 4.2 cm. There is no hydronephrosis. No shadowing calculus. No focal lesion or perinephric collection is demonstrated. RIGHT CHEST: There is mild anechoic pleural effusion of at least 3.5 cm x 7.4 cm posterior-superior to the liver. AORTA: Mild atherosclerotic change, normal caliber of proximal aorta, not shown distally. US/Abdomen Limited IMPRESSION: Mild right pleural effusion. No other suspicious findings. Electronically Signed: Belinda Post MD at 23:33 EDT ,
[2024-07-03 12:46] LABS: Cholesterol 190 mg/dL (200); High Density Lipoprotein 83 mg/dL; Triglycerides 107 mg/dL; Very Low Density Lipoprotein 21 mg/dL (5-40)
[2024-07-03] MEDS: Metoprolol Tartrate 25 MG Tablet PO (12:46)
[2024-07-03] MEDS: APIXABAN 5 MG TABLET PO ×2 (12:47→22:02)
[2024-07-03 13:15] LABS: Hemoglobin A1c 5.5 % (3.8-5.6)
[2024-07-03] MEDS: 0.9% Saline Lock 10 ML Syringe IV (17:04)
[2024-07-03] MEDS: Atorvastatin Calcium 10 MG Tablet PO (20:31)
[2024-07-03] MEDS: Metoprolol Tartrate 25 MG Tablet 12.5 MG PO (23:01)
[2024-07-04 03:12] VITALS: BMI 22.1
[2024-07-04 04:00] VITALS: BP 104/72; PULSE 68; RESP 18; TEMP 36.6; O2SAT 98
[2024-07-04 05:38] LABS: Hematocrit 39.9 % (37-47); Hemoglobin 12.9 g/dL (12.0-15.0); Mean Corp Hgb Conc 32.3 g/dL (32-36); Mean Corpuscular Hgb 29.3 pg (27.0-32.0); Mean Corpuscular Volume 90.5 fL (81-99); Mean Platelet Vol. 10.9 fl (6.2-12.0); Platelet Count 187 K/mm3 (150-450); RBC Distribution Width CV 13.4 % (11.6-14.6); RBC Distribution Width SD 44.6 fl (35.1-43.9); Red Blood Count 4.41 M/mm3 (4.2-5.4); White Blood Count 5.7 K/mm3 (4.4-11.0)
[2024-07-04 06:04] LABS: AST(SGOT) 80 U/L (15-37); Alanine Aminotransfer ALT/SGPT 136 U/L (13-56); Albumin, Serum 3.3 g/dL (3.2-5.0); Alkaline Phosphatase 102 U/L (45-117); Anion Gap 7 (5-15); BUN 27 mg/dL (7-18); BUN/Creat Ratio 24.5 RATIO (10-20); Calcium,Total 8.5 mg/dL (8.5-10.1); Chloride 105 mmol/L (98-107); EST Glomerular Filtration Rate 52 mL/min (>60); Est Glom Filt Rate - Afr Amer 63 mL/min (>60); Globulin 3.3 g/dL (2.2-4.2); Glucose 99 mg/dL (74-106); Potassium 3.3 mmol/L (3.5-5.1); Protein, Total 6.6 g/dL (6.4-8.2); Sodium Level 142 mmol/L (136-145)
[2024-07-04 06:54] VITALS: O2SAT 95
[2024-07-04 10:00] VITALS: BP 105/72; PULSE 68; RESP 14; TEMP 36.5; O2SAT 98
--- NOTE | 2024-07-04 11:47 | PCM.PN.HOSP ---
Reason for Visit Reason for Visit: Diagnoses Unspecified atrial fibrillation (07/03/24) Heart failure, unspecified (07/03/24) Other specified abnormal findings of blood chemistry (07/03/24) Subjective Subjective No acute events overnight. Saw patient at bedside this morning, present. Patient was sitting up comfortably in bedside chair, conversing normally, in no acute distress. Appeared similar to yesterday. Breathing comfortably on room air. Denies any shortness of breath at rest. Has not exerted herself much but no shortness of breath with exertion to this point. Patient reports good urine output with IV Lasix this point. Denies any palpitations today. Reviewed cardiac monitoring and patient appears to be in atrial flutter with heart rate consistently around 70-75 for the past several hours. No other new concerns today. Objective Data Objective Data Vital Signs: Vital Signs Temp Pulse Resp BP Pulse Ox O2 Del Method 97.7 F L 68 14 105/72 98 Room Air 07/04/24 10:00 07/04/24 10:00 07/04/24 10:00 07/04/24 10:00 07/04/24 10:00 07/04/24 10:00 Oxygen Delivery Method Room Air Weight: 60.2 kg Body Mass Index (BMI) 22.1 Intake & Output: Intake and Output for Last 24 Hours 07/02/24 07/03/24 07/04/24 23:59 23:59 23:59 Intake Total 240 / 240 Balance 240 / 240 Lab / Micro Data 07/04/24 04:58 07/04/24 04:58 Labs: Laboratory Results - last 24 hr 07/03/24 09:15: Triglycerides 107, Cholesterol 190, LDL Cholesterol 86, VLDL Cholesterol 21, HDL Cholesterol 83, Free T4 0.79 07/03/24 12:30: Hemoglobin A1c 5.5 07/04/24 04:58: WBC 5.7, RBC 4.41, Hgb 12.9, Hct 39.9, MCV 90.5, MCH 29.3, MCHC 32.3, RDW Std Deviation 44.6 H, RDW Coeff of Sandi 13.4, Plt Count 187, MPV 10.9, Sodium 142, Potassium 3.3 L, Chloride 105, Carbon Dioxide 30.0, Anion Gap 7, BUN 27 H, Creatinine 1.10 H, Estim Creat Clear Calc 41.60, Est GFR (MDRD) Af Amer 63, Est GFR (MDRD) Non-Af 52 L, BUN/Creatinine Ratio 24.5 H, Glucose 99, Calcium 8.5, Magnesium 2.0, Total Bilirubin 1.00, AST 80 H, ALT 136 H, Alkaline Phosphatase 102, Total Protein 6.6, Albumin 3.3, Globulin 3.3, Albumin/Globulin Ratio 1.0 Micro: Microbiology 07/03/24 14:52 Mucosa - Nasopharyngeal Respiratory Panel (PCR) - Final 07/03/24 14:52 Mucosa - Nasopharyngeal Coronavirus COVID-19 PCR - Final Radiography Diagnostic Testing: Radiology Impression Abdomen Ultrasound 07/03/24 12:09 IMPRESSION: Mild right pleural effusion. No other suspicious findings. Electronically Signed: Belinda Post MD at 23:33 EDT , Physical Exam Const alert, oriented x3, no apparent distress, average body habitus, healthy appearing and well nourished Constitutional Narrative: Pleasant elderly female, appears younger than stated age, energy improved today, sitting up comfortably in bed, conversing normally, in no acute distress. General Appearance: cooperative, comfortable, well kempt and well developed HEENT normocephalic, head/scalp atraumatic, hearing grossly normal bilaterally, nasal mucous membranes and turbinates normal and moist oral mucous membranes Eyes PERRL, EOMs intact bilaterally and conjunctivae normal Neck full ROM and no JVD Chest inspection of chest normal Resp normal respiratory effort and no use of accessory muscles Resp Narrative: Diminished breath sounds in bilateral lung bases. Otherwise no crackles today, improved from previous. No wheezing noted. Breathing comfortably on room air at rest. Cardio no murmurs and peripheral pulses 2+ throughout Cardio Narrative: A-fib/flutter, rate controlled. GI normal to inspection, nondistended, normoactive bowel sounds, soft to palpation, non-tender and non-distended Back/Spine normal ROM Extremity normal to inspection, full ROM and no pedal edema Skin no rashes or lesions noted Neuro moves all extremities and no focal motor deficits Speech: speech normal Psych mental status grossly normal Assessment & Plan Assessment/Plan (1) New onset atrial fibrillation: (2) CHF (congestive heart failure): (3) Elevated TSH: (4) Elevated LFTs: PLAN: Plan Patient is a 73-year-old female who presented [facility] ED with palpitations and shortness of breath with exertion. 1. New onset A-fib with RVR, concern for new onset heart failure ? Presented in A-fib/flutter with RVR. Had good rate improvement in the ED with IV Cardizem bolus, no need for Cardizem drip. Started on p.o. Lopressor 25 mg daily on admission. Echo ordered, will be done tomorrow. Given elevated BNP and CHF findings on chest x-ray, have concern for new onset heart failure. Has had good urine output on IV Lasix 40 mg twice daily and kidney function is improving, will continue this for now. Monitor daily BMP and urine output. [id number] score of 2 (age and sex); given concern for more longstanding A-fib leading to tachycardia induced cardiomyopathy, started on anticoagulation with Eliquis 5 mg twice daily. 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 Continue p.o. Lopressor. Will plan to have cardiology see the patient tomorrow. 2. Mild SEVEN, improving ? Creatinine 1.25 on admit, baseline around 0.7-0.8. Suspect prerenal etiology due to cardiorenal syndrome. Improving, creatinine 1.10 on 07/04. Continue treatment with IV Lasix as noted above, monitor daily BMP and urine output. 3. Elevated LFTs, improving ? T. bili 1.30, AST 185, ALT 192, alk phos 125 on admit. Previous LFTs in January normal. No abdominal pain. Suspect mild congestive hepatopathy in setting of likely new onset heart failure. Right upper quadrant ultrasound on admit unremarkable. LFTs improving on hospital day 2, no need for further monitoring of labs at this time. 4. Mild hypothyroidism ? TSH 8.94, free T4 0.79 (borderline low) on admit. Thyroid antibodies pending. Per patient request, will hold on starting Synthroid for now but would recommend close outpatient follow-up on discharge. 5. Hyperlipidemia ? On home simvastatin 20 mg daily. Repeat lipid panel on admit showed total cholesterol 190, LDL 86, HDL 83. Continue home simvastatin. DVT prophylaxis: Not indicated, on Eliquis CODE STATUS: Full code, verified Expected disposition: Home, 2 to 3 days Total clinical time spent by myself addressing the patient's medical issues, reviewing all the data, and collaborating with patient's care team: 35 minutes. Charges/Coding Visit Charges Inpatient E&M: 71280 Subs Hosp L2
[2024-07-04] MEDS: Calcium (Elemental) 500 MG Tablet PO (11:49)
[2024-07-04] MEDS: Potassium Chloride Oral Tablet 20 MEQ 60 MEQ PO (11:49)
[2024-07-04] MEDS: APIXABAN 5 MG TABLET PO ×2 (11:50→21:32)
[2024-07-04] MEDS: Furosemide 40 MG/4 ML Vial IV ×2 (11:50→17:18)
[2024-07-04] MEDS: Acetaminophen 325 MG Tablet 650 MG PO ×2 (11:56→21:32)
[2024-07-04] MEDS: 0.9% Saline Lock 10 ML Syringe IV ×2 (11:57→17:19)
[2024-07-04 15:19] VITALS: BP 106/77; PULSE 70; RESP 16; TEMP 36.8; O2SAT 98
[2024-07-04 21:30] VITALS: BP 96/63; PULSE 64; RESP 18; TEMP 36.6; O2SAT 98
[2024-07-04] MEDS: Atorvastatin Calcium 10 MG Tablet PO (21:32)
[2024-07-05] VITALS (10 sets, daily range): BP systolic 103–107; BP diastolic 64–82; PULSE 71–80; RESP 18; TEMP 35.9–36.7; O2SAT 94–99; BMI 21.4
[2024-07-05 06:17] LABS: Anion Gap 4 (5-15); BUN 33 mg/dL (7-18); Calcium,Total 8.9 mg/dL (8.5-10.1); Chloride 105 mmol/L (98-107); Creatinine, Serum 1.22 mg/dL (0.55-1.02); EST Glomerular Filtration Rate 46 mL/min (>60); Est Glom Filt Rate - Afr Amer 56 mL/min (>60); Estimated Creatinine Clearance 37.51 ml/min; Glucose 102 mg/dL (74-106); Potassium 3.8 mmol/L (3.5-5.1); Sodium Level 140 mmol/L (136-145)
--- NOTE | 2024-07-05 09:13 | CON.PCM.CA_ITS ---
Assessment & Plan Assessment/Plan (1) New onset atrial fibrillation: PLAN: Patient has a history of recurrent multiple extra beats and palpitations since high school. She denies ever being told that she was in atrial fibrillation. It appears that her symptoms started a little over a week ago. Upon presentation she was in atrial fibrillation with a ventricular rate of 1 50-1 60 this is slowed somewhat on metoprolol 25 twice daily down to 118 bpm but she is still feeling the palpitations. Recommend increasing metoprolol to 25 mg 4 times a day as blood pressure will tolerate. She will continue on Eliquis 5 mg twice daily. Will determine further recommendations once the results of the pending echocardiogram are done. (2) Elevated TSH: PLAN: The patient has an elevated TSH of an uncertain etiology. Would recommend further management per the primary service. Will need to rate control her with increasing beta-julianne and alternative medical regiment as needed based on blood pressure response. (3) Elevated LFTs: PLAN: LFTs are being managed by the primary service. (4) CHF (congestive heart failure): QUALIFIERS: Heart failure type: unspecified Heart failure chronicity: unspecified Qualified Code(s): I50.9 - Heart failure, unspecified PLAN: The echocardiogram is pending at this time. Chest x-ray showed some patchy infiltrates more consistent with a possible infectious etiology superimposed on interstitial chronic changes. BUN and creatinine suggest that she is mildly dehydrated or via volume contracted. Will recommend holding furosemide at this time and increasing beta-julianne to better control her heart rate. Further recommendations be forthcoming once the results of the echo are available. PLAN: Plan 1. Obtain 2D echocardiogram today. 2. Titrate metoprolol to heart rate and blood pressure. 3. At this point in time would defer direct-current cardioversion for 3 to 4 weeks given the probable duration of the atrial fibrillation of at least a week. 4. Continue Eliquis 5 mg twice daily. HPI Consult Data Date of Consult: 07/05/24 HPI Narrative Reason for Consultation: New onset atrial fibrillation. HPI Narrative: SAMY THURMAN, is a 73 F who presents with atrial fibrillation with a rapid trickle response in the 150 to 160 bpm range. She noted a change in her exercise tolerance a little over a week ago where she was routinely out working in the yard doing weeding could go all day long without having to stop and noticed that she was only able to do it for short periods of time and would have to come in and felt wiped out and tired. She did notice palpitations but she has had palpitations all of her life since she was a teenager. She has never been diagnosed with atrial fibrillation to her knowledge. Patient has no previous history of cardiac issues no significant valvular disease to her knowledge no cardiomyopathy and has never had angina or any type of ischemic event. The patient denies any syncope or near syncope. There is a family history of late presentation for coronary disease in her dad having a stent late in life. She has never smoked she is not hypertensive she does have a history of hyperlipidemia on therapy. She is not diabetic. Since admission the patient's been on metoprolol 25 mg twice daily and Eliquis 5 mg twice daily. She also received furosemide 40 mg IV twice daily which was switched to 20 mg daily. Patient's blood pressures have been well-controlled. Heart rate on telemetry is 112 bpm and the patient is complaining of palpitations. Patient had an elevated TSH on presentation with a potassium of 3.3 she also had elevated LFTs. An echocardiogram is being performed. [facility] Medical History Osteopenia Hyperlipidemia Home Medications ?Medication ?Instructions ?Recorded ?Last Taken ?Type calcium carbonate (Calcium 500) 500 mg PO DAILY supplement 09/04/21 07/02/24 History simvastatin 20 mg tablet 20 mg PO DAILY 09/04/21 Unknown History flaxseed oil See Rx Instructions .Route 07/03/24 07/03/24 History .COMPLEX supplement Allergy/AdvReac Type Severity Reaction Status Date / Time No Known Allergies Allergy Verified 07/03/24 09:03 Family History Mother Breast cancer Congestive heart failure Osteoporosis Grandmother Diabetes Osteoporosis Surgical History H/O dilation and curettage History of hysterectomy Social History household members: spouse and children current occupational status: retired history of recent travel: No Smoking Status: Never smoker alcohol intake: current alcohol intake frequency: holidays/special occasions only substance use type: does not use what type of physical activity do you participate in: walking, yoga and weight training frequency: 3-4 times per week seatbelt use: always do you feel safe at home: Yes additional social history: - Dylan ROS Constitutional Constitutional: Reports as per HPI Eyes Eyes: Reports systems reviewed and no addt'l complaints, except as documented ENT HEENT: Reports systems reviewed and no addt'l complaints, except as documented Cardiovascular Cardiovascular: Reports as per HPI Respiratory/Chest Respiratory/Chest: Reports as per HPI Gastrointestinal Gastrointestinal: Reports systems reviewed and no addt'l complaints, except as documented Genitourinary Genitourinary: Reports systems reviewed and no addt'l complaints, except as documented Musculoskeletal Musculoskeletal: Reports systems reviewed and no addt'l complaints, except as documented Integumentary Integumentary: Reports systems reviewed and no addt'l complaints, except as documented Neurologic Neurologic: Reports systems reviewed and no addt'l complaints, except as documented Psychiatric Psychiatric: Reports systems reviewed and no addt'l complaints, except as documented Endocrine Endocrinology: Reports as per HPI Hematologic/Lymphatic Hematologic/Lymphatic: Reports systems reviewed and no addt'l complaints, except as documented Physical Exam Const alert and oriented x3 HEENT normocephalic Eyes EOMs intact bilaterally Neck no JVD and no carotid bruits Chest inspection of chest normal Chest: midline sternotomy incision Resp normal respiratory effort and clear to auscultation bilaterally Cardio Rate: tachycardic Rhythm: abnormal rhythm irregularly irregular Heart Sounds: S1 normal and S2 normal; Negative for click, gallop, murmur or rub Peripheral Pulses: pulses 2+ throughout GI soft to palpation and no bruits Extremity no pedal edema Skin no rashes or lesions noted Neuro Neuro Narrative: Alert and oriented x 3 Psych mental status grossly normal Risk Stratification Risk Stratification Applicable: No Charges/Coding Visit Charges Inpatient E&M: 37452 Init Hosp L3 Objective Data Vital Signs: Vital Signs Temp Pulse Resp BP Pulse Ox O2 Del Method 97.4 F L 73 18 107/80 98 Room Air 07/05/24 03:20 07/05/24 03:20 07/05/24 03:20 07/05/24 03:20 07/05/24 03:20 07/05/24 08:53 Oxygen Delivery Method Room Air Weight: 129 lb 3.054 oz Body Mass Index (BMI) 21.4 Intake & Output: Intake and Output for Last 24 Hours 08/03/24 08/04/24 08/05/24 23:59 23:59 23:59 Intake Total 240 / 240 975 / 975 Output Total 200 / 200 Balance 240 / 240 775 / 775 Lab / Micro Data Attestation: I reviewed the patient's lab results. 07/04/24 04:58 07/05/24 05:41 Labs: Laboratory Results - last 24 hr 07/04/24 04:58: Magnesium 2.0 07/05/24 05:41: Sodium 140, Potassium 3.8, Chloride 105, Carbon Dioxide 31.0, A nion Gap 4 L, BUN 33 H, Creatinine 1.22 H, Estim Creat Clear Calc 37.51, Est GFR (MDRD) Af Amer 56 L, Est GFR (MDRD) Non-Af 46 L, BUN/Creatinine Ratio 27.0 H, Glucose 102, Calcium 8.9 Rhythm Strip Rhythm Strip: A-fib Rate: 112 Cardiology Labs/Tests 07/04/24 04:58: Magnesium 2.0 07/05/24 05:41: Sodium 140, Potassium 3.8, Chloride 105, Carbon Dioxide 31.0, A nion Gap 4 L, BUN 33 H, Creatinine 1.22 H, Est GFR (MDRD) Af Amer 56 L, Est GFR (MDRD) Non-Af 46 L, BUN/Creatinine Ratio 27.0 H, Glucose 102, Calcium 8.9 Rhythm: EKG: ECHO: Stress Test: Cardiac Cath: PCI: CT Surgery: Holter monitor: EPS: PPM: CXR: Chest CT Scan:
[2024-07-05] MEDS: Metoprolol Tartrate 25 MG Tablet PO ×4 (10:38→21:25)
[2024-07-05] MEDS: APIXABAN 5 MG TABLET PO ×2 (10:38→21:25)
[2024-07-05] MEDS: Calcium (Elemental) 500 MG Tablet PO (10:38)
--- NOTE | 2024-07-05 12:29 | PN.HOSP_ITS ---
Reason for Visit Reason for Visit: Diagnoses Unspecified atrial fibrillation (07/03/24) Heart failure, unspecified (07/03/24) Other specified abnormal findings of blood chemistry (07/03/24) Subjective Subjective No acute events overnight. Saw patient at bedside this morning. Appeared similar to yesterday, sitting up comfortably in bedside chair, conversing normally, in no acute distress. She did report having an episode of feeling like her heart rate was fast earlier this morning but this improved after she was given her morning medications. Denied any other concerns today. Echo read came back this afternoon and showed EF 20% with global LV dysfunction. I talked with patient at the bedside along with Dr. Falcon with cardiology this afternoon. Per Dr. Falcon, planning to switch patient to metoprolol succinate 25 mg twice daily and added spironolactone. If patient's blood pressure tolerates, planning to start low-dose IFEOMA or ARB tomorrow. Likely home either tomorrow afternoon or Friday with close outpatient follow-up with cardiology going forward. Given highest concern is for tachycardia mediated cardiomyopathy, no need for ischemic workup at this time. Patient was agreeable with this plan. Objective Data Objective Data Vital Signs: Vital Signs Temp Pulse Resp BP Pulse Ox O2 Del Method 97.7 F L 71 18 105/82 H 97 Room Air 07/05/24 09:20 07/05/24 10:38 07/05/24 09:20 07/05/24 10:38 07/05/24 09:20 07/05/24 09:20 Oxygen Delivery Method Room Air Weight: 58.6 kg Body Mass Index (BMI) 21.4 Intake & Output: Intake and Output for Last 24 Hours 07/03/24 07/04/24 07/05/24 23:59 23:59 23:59 Intake Total 240 / 240 975 / 975 240 / 240 Output Total 200 / 200 Balance 240 / 240 775 / 775 240 / 240 Lab / Micro Data 07/04/24 04:58 07/05/24 05:41 Labs: Laboratory Results - last 24 hr 07/05/24 05:41: Sodium 140, Potassium 3.8, Chloride 105, Carbon Dioxide 31.0, A nion Gap 4 L, BUN 33 H, Creatinine 1.22 H, Estim Creat Clear Calc 37.51, Est GFR (MDRD) Af Amer 56 L, Est GFR (MDRD) Non-Af 46 L, BUN/Creatinine Ratio 27.0 H, Glucose 102, Calcium 8.9 Micro: Microbiology 07/03/24 14:52 Mucosa - Nasopharyngeal Respiratory Panel (PCR) - Final 07/03/24 14:52 Mucosa - Nasopharyngeal Coronavirus COVID-19 PCR - Final Rhythm Strip Rhythm Strip: A-fib Rate: 112 Physical Exam Const alert, oriented x3, no apparent distress, average body habitus, healthy appearing and well nourished Constitutional Narrative: Pleasant elderly female, appears younger than stated age, energy improved today, sitting up comfortably in bed, conversing normally, in no acute distress. Stable. General Appearance: cooperative, comfortable, well kempt and well developed HEENT normocephalic, head/scalp atraumatic, hearing grossly normal bilaterally, nasal mucous membranes and turbinates normal and moist oral mucous membranes Eyes PERRL, EOMs intact bilaterally and conjunctivae normal Neck full ROM and no JVD Chest inspection of chest normal Resp normal respiratory effort and no use of accessory muscles Resp Narrative: Diminished breath sounds in bilateral lung bases. Otherwise no crackles today, improved from previous. No wheezing noted. Breathing comfortably on room air at rest. Stable. Cardio no murmurs and peripheral pulses 2+ throughout Cardio Narrative: A-fib/flutter, rate controlled. GI normal to inspection, nondistended, normoactive bowel sounds, soft to palpation, non-tender and non-distended Back/Spine normal ROM Extremity normal to inspection, full ROM and no pedal edema Skin no rashes or lesions noted Neuro moves all extremities and no focal motor deficits Speech: speech normal Psych mental status grossly normal Assessment & Plan Assessment/Plan (1) New onset atrial fibrillation: (2) CHF (congestive heart failure): QUALIFIERS: Heart failure type: unspecified Heart failure chronicity: unspecified Qualified Code(s): I50.9 - Heart failure, unspecified (3) Elevated TSH: (4) Elevated LFTs: PLAN: Plan Patient is a 73-year-old female who presented [facility] ED with palpitations and shortness of breath with exertion. 1. New onset A-fib with RVR, newly diagnosed HFrEF ? Cardiology following. Presented in A-fib/flutter with RVR. Had good rate improvement in the ED with IV Cardizem bolus, no need for Cardizem drip. Echo 07/05 showed EF 20%, severe global LV dysfunction. Had good urine output on IV Lasix 40 mg twice daily with contraction noted on labs, Lasix discontinued on 07/05. 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 Per cardiology, treating with Lopressor 25 mg every 6 hours and spironolactone daily for now. If patient's blood pressure tolerates, plan to start low-dose IFEOMA or ARB tomorrow. Continue Eliquis that was started on admission. Likely discharge home in the next 1 to 2 days with close outpatient cardiology follow-up. 2. Mild SEVEN ? Creatinine 1.25 on admit, baseline around 0.7-0.8. Suspect prerenal etiology due to cardiorenal syndrome. Improved on hospital day 2 but then slightly worsened again on day 3, likely due to contraction from IV Lasix, Lasix discontinued on 07/05. Continue to monitor daily BMP and urine output. 3. Elevated LFTs, improving ? T. bili 1.30, AST 185, ALT 192, alk phos 125 on admit. Previous LFTs in January normal. No abdominal pain. Suspect mild congestive hepatopathy in setting of likely new onset heart failure. Right upper quadrant ultrasound on admit unremarkable. LFTs improving on hospital day 2, no need for further monitoring of labs at this time. 4. Mild hypothyroidism ? TSH 8.94, free T4 0.79 (borderline low) on admit. Thyroid antibodies pending. Per patient request, will hold on starting Synthroid for now but would recommend close outpatient follow-up on discharge. 5. Hyperlipidemia ? On home simvastatin 20 mg daily. Repeat lipid panel on admit showed total cholesterol 190, LDL 86, HDL 83. Continue home simvastatin. DVT prophylaxis: Not indicated, on Eliquis CODE STATUS: Full code, verified Expected disposition: Home, 1 to 2 days Total clinical time spent by myself addressing the patient's medical issues, reviewing all the data, and collaborating with patient's care team: 35 minutes. Charges/Coding Visit Charges Inpatient E&M: 23163 Subs Hosp L2
--- NOTE | 2024-07-05 13:30 | CASEMGMT ---
LASHONDA MCKINNEY Assessment: Face to Face with pt for initial transition planning/care coordination assessment. RN CM introduced self and role at [facility], pt voices understanding and consents to assessment. Pt is A&O x4 and answers all questions appropriately at this time. Pt sitting up in chair in no distress. Care providers, pharmacy, and demographics verified/updated. Admitting Dx:New onset AFIB W/RVR, concern for CHF PCP: Maryjane Specialists: Denies Preferred Pharmacy: [facility] Insurance: [facility], Physician [place] Prescription Benefit: yes LNOK: Dylan, Living Arrangements: Pt lives with and daughter in a bi-level home with 3 steps to enter. Pt states I at home with ADLs and IADLs. Transportation: Pt drives self and denies concerns with transportation. DME: Denies HHC/SNF: Denies Hx of. Pt states no concerns with going home at time of dc. Pt states no further concerns/needs. CM to follow. Advised pt to ask CM if any further question/concerns/needs arise, voices understanding. Pt Goal: Home Plan: Home with family support, CM to follow plan of care. Madison Banks RN, CM.
[2024-07-05] MEDS: Spironolactone 25 MG Tablet PO (13:51)
--- NOTE | 2024-07-05 16:01 | CHAPLAIN ---
Type of Pastoral Visit _x__ Initial Visit ___ Follow-up Visit ___ On-call Visit ___ General Patient Visit ___ Spiritual Assessment ___ Family Conference ___ Bereavement ___ Rapid Response ___ Code Blue ___ Other (describe below) Pastoral Care Referral From _x__ Patient ___ Family ___ Nurse ___ Physician ___ Plant Production Manager ___ Hand Ironer ___ Other (describe below) Sacrament/Intervention _x__ Active listening ___ Anointing ___ Amish ___ Bereavement ___ Communion ___ Karlee exploration ___ _x__ Life review _x__ Prayer ___ Reconciliation ___ Sacrament of Sick ___ Supportive presence ___ Wedding ___ Other (describe below) Pastoral Comments patient and her sister are visiting in the room; both are welcoming and give information about the situation; pt's other family members left for vacation while the patient thought it best to remain home and get her health needs checked out; pt is okay with this decision and hopes to have things resolved and to be discharged by tomorrow; offer of support and prayer given and welcomed
[2024-07-05] MEDS: Acetaminophen 325 MG Tablet 650 MG PO (21:24)
[2024-07-05] MEDS: Atorvastatin Calcium 10 MG Tablet PO (21:25)
[2024-07-06] VITALS (8 sets, daily range): BP systolic 94–107; BP diastolic 59–88; PULSE 54–68; RESP 14–18; TEMP 36.1–36.7; O2SAT 96–99; BMI 21.4
[2024-07-06 06:52] LABS: Anion Gap 5 (5-15); BUN 30 mg/dL (7-18); BUN/Creat Ratio 31.7 RATIO (10-20); Calcium,Total 8.9 mg/dL (8.5-10.1); Chloride 109 mmol/L (98-107); Creatinine, Serum 0.95 mg/dL (0.55-1.02); EST Glomerular Filtration Rate 62 mL/min (>60); Est Glom Filt Rate - Afr Amer 75 mL/min (>60); Estimated Creatinine Clearance 48.17 ml/min; Glucose 98 mg/dL (74-106); Potassium 3.9 mmol/L (3.5-5.1); Sodium Level 142 mmol/L (136-145)
[2024-07-06] MEDS: Spironolactone 25 MG Tablet PO (07:46)
[2024-07-06] MEDS: Calcium (Elemental) 500 MG Tablet PO (07:47)
[2024-07-06] MEDS: APIXABAN 5 MG TABLET PO ×2 (07:48→21:29)
--- NOTE | 2024-07-06 08:22 | PCM.PN.CARD ---
Subjective Subjective Patient tolerated the alteration in her medical regiment and the metoprolol 25 mg 4 times daily. Blood pressure is tolerated this heart rate is much better controlled in the 60 to 80 bpm range on telemetry. I went over with the patient and her retired RN sister in detail the patient's situation with her LV dysfunction in a global fashion related most likely to her tachycardia. The plan is to titrate her aggressively on guideline directed medical therapy for LV dysfunction. She does not have any signs or symptoms of congestion to date. She has noticed a drop-off in her exercise tolerance since being in the hospital and walking the halls. Objective Data Vital Signs: Vital Signs Temp Pulse Resp BP Pulse Ox O2 Del Method 98.1 F 60 18 100/59 L 98 Room Air 07/06/24 04:20 07/06/24 04:20 07/06/24 04:20 07/06/24 04:20 07/06/24 07:44 07/06/24 08:00 Oxygen Delivery Method Room Air Weight: 128 lb 15.527 oz Body Mass Index (BMI) 21.4 Intake & Output: Intake and Output for Last 24 Hours 07/04/24 07/05/24 07/06/24 23:59 23:59 23:59 Intake Total 975 / 975 480 / 480 Output Total 200 / 200 Balance 775 / 775 480 / 480 Lab / Micro Data Attestation: I reviewed the patient's lab results. 07/04/24 04:58 07/06/24 05:49 Labs: Laboratory Results - last 24 hr 07/06/24 05:49: Sodium 142, Potassium 3.9, Chloride 109 H, Carbon Dioxide 28.0, Anion Gap 5, BUN 30 H, Creatinine 0.95, Estim Creat Clear Calc 48.17, Est GFR (MDRD) Af Amer 75, Est GFR (MDRD) Non-Af 62, BUN/Creatinine Ratio 31.7 H, Glucose 98, Calcium 8.9 Rhythm Strip Rhythm Strip: A-fib Rate: 70 Cardiology Labs/Tests 07/06/24 05:49: Sodium 142, Potassium 3.9, Chloride 109 H, Carbon Dioxide 28.0, Anion Gap 5, BUN 30 H, Creatinine 0.95, Est GFR (MDRD) Af Amer 75, Est GFR (MDRD) Non-Af 62, BUN/Creatinine Ratio 31.7 H, Glucose 98, Calcium 8.9 Rhythm: EKG: ECHO: Stress Test: Cardiac Cath: PCI: CT Surgery: Holter monitor: EPS: PPM: CXR: Chest CT Scan: Radiography Diagnostic Testing: Radiology Impression Echocardiogram 07/03/24 11:20 Interpretation Summary Severely dilated left ventricle. Mild concentric left ventricular hypertrophy. The left ventricular ejection fraction is 20 %. Moderate (2+) eccentric mitral valve insufficiency. Pulmonary artery systolic pressure is 43 mmHg. Ordering Physician: Edgar Park Referring Physician: Hortensia Wesley Performed By: Esther Johansen RDCS Physical Exam Const alert and oriented x3 HEENT normocephalic Eyes EOMs intact bilaterally Neck no JVD Chest inspection of chest normal Resp normal respiratory effort and clear to auscultation bilaterally Cardio Rate: regular rate Rhythm: abnormal rhythm irregularly irregular Heart Sounds: S1 normal and S2 normal; Negative for click, gallop or murmur Extremity no pedal edema Skin no rashes or lesions noted Neuro Neuro Narrative: Alert and oriented x 3 Psych mental status grossly normal Assessment & Plan Assessment/Plan (1) CHF (congestive heart failure): QUALIFIERS: Heart failure chronicity: unspecified Heart failure type: unspecified Qualified Code(s): I50.9 - Heart failure, unspecified PLAN: Patient does not have any overt signs and symptoms of congestive heart failure. However, she did notice yesterday that her walking that there was some drop-off in her exercise tolerance and that she was breathing a little more prominently than previous. LV ejection fraction is estimated at 20% and globally diminished. There is no segmental wall motion abnormality and 2+ mitral regurgitation was noted. Pulmonary artery pressure estimated in the 40 mmHg range. The patient has tolerated metoprolol 25 mg every 6 hours. We will switch that to metoprolol succinate 50 mg twice daily today. She is also tolerating the spironolactone 25 mg daily. I will reevaluate her later this afternoon and if tolerating from a blood pressure standpoint would add in losartan 25 mg daily at the evening meal. (2) New onset atrial fibrillation: PLAN: The patient remains on Eliquis heart rate is much better controlled on the higher dose of beta-julianne. The plan would be to maintain her on rate control with Eliquis for 3 to 4 weeks until she returns from her [place] cruise. At that time would bring her in for elective direct-current cardioversion. (3) Elevated LFTs: PLAN: Will reevaluate the LFTs in 24 hours. Suspect this may have been related to congestion due to her LV dysfunction and pulmonary pressure elevations. (4) Elevated TSH: PLAN: TSH and hypothyroidism is being evaluated by the primary service. She should be appropriately replaced as this could exacerbate her global LV dysfunction if she is profoundly hypothyroid. PLAN: Plan 1. Continue to titrate guideline directed medical therapy aggressively. 2. Expect another 48 hours in-house hospital stay. 3. Consider thyroid replacement per the primary service as they feel indicated. 4. Reevaluate LFTs in 24 hours. 5. Had the patient continue ambulation in the halls as tolerated. Charges/Coding Visit Charges Inpatient E&M: 04224 Subs Hosp L2
[2024-07-06] MEDS: Metoprolol(XL)Succ 50 MG Tablet PO ×2 (10:36→21:29)
--- NOTE | 2024-07-06 10:55 | PCM.PN.HOSP ---
Reason for Visit Reason for Visit: Diagnoses Unspecified atrial fibrillation (07/03/24) Heart failure, unspecified (07/03/24) Other specified abnormal findings of blood chemistry (07/03/24) Subjective Subjective No acute events overnight. Saw patient at bedside this morning. Patient appeared similar today to previous days, was sitting up comfortably in bedside chair, conversing normally, no acute distress. Appeared to have good energy today. She denied any palpitations this morning. Was tolerating the medications without issue. Stated she did feel dry yesterday after significant IV diuresis but felt improved today. No other new concerns today. Objective Data Objective Data Vital Signs: Vital Signs Temp Pulse Resp BP Pulse Ox O2 Del Method 98 F 56 L 14 102/78 99 Room Air 07/06/24 10:32 07/06/24 10:36 07/06/24 10:32 07/06/24 10:36 07/06/24 10:32 07/06/24 10:32 Oxygen Delivery Method Room Air Weight: 58.5 kg Body Mass Index (BMI) 21.4 Intake & Output: Intake and Output for Last 24 Hours 07/04/24 07/05/24 07/06/24 23:59 23:59 23:59 Intake Total 975 / 975 480 / 480 Output Total 200 / 200 Balance 775 / 775 480 / 480 Lab / Micro Data 07/04/24 04:58 07/06/24 05:49 Labs: Laboratory Results - last 24 hr 07/06/24 05:49: Sodium 142, Potassium 3.9, Chloride 109 H, Carbon Dioxide 28.0, Anion Gap 5, BUN 30 H, Creatinine 0.95, Estim Creat Clear Calc 48.17, Est GFR (MDRD) Af Amer 75, Est GFR (MDRD) Non-Af 62, BUN/Creatinine Ratio 31.7 H, Glucose 98, Calcium 8.9 Micro: Microbiology 07/03/24 14:52 Mucosa - Nasopharyngeal Respiratory Panel (PCR) - Final 07/03/24 14:52 Mucosa - Nasopharyngeal Coronavirus COVID-19 PCR - Final Radiography Diagnostic Testing: Radiology Impression Echocardiogram 07/03/24 11:20 Interpretation Summary Severely dilated left ventricle. Mild concentric left ventricular hypertrophy. The left ventricular ejection fraction is 20 %. Moderate (2+) eccentric mitral valve insufficiency. Pulmonary artery systolic pressure is 43 mmHg. Ordering Physician: Edgar Park Referring Physician: Hortensia Wesley Performed By: Esther Johansen RDCS Rhythm Strip Rhythm Strip: A-fib Rate: 70 Physical Exam Const alert, oriented x3, no apparent distress, average body habitus, healthy appearing and well nourished Constitutional Narrative: Pleasant elderly female, appears younger than stated age, energy improved from admission, sitting up comfortably in bed, conversing normally, in no acute distress. Stable. General Appearance: cooperative, comfortable, well kempt and well developed HEENT normocephalic, head/scalp atraumatic, hearing grossly normal bilaterally, nasal mucous membranes and turbinates normal and moist oral mucous membranes Eyes PERRL, EOMs intact bilaterally and conjunctivae normal Neck full ROM and no JVD Chest inspection of chest normal Resp normal respiratory effort and no use of accessory muscles Resp Narrative: Diminished breath sounds in bilateral lung bases. Otherwise no crackles, improved from previous. No wheezing noted. Breathing comfortably on room air at rest. Stable. Cardio no murmurs and peripheral pulses 2+ throughout Cardio Narrative: A-fib/flutter, rate controlled. GI normal to inspection, nondistended, normoactive bowel sounds, soft to palpation, non-tender and non-distended Back/Spine normal ROM Extremity normal to inspection, full ROM and no pedal edema Skin no rashes or lesions noted Neuro moves all extremities and no focal motor deficits Speech: speech normal Psych mental status grossly normal Assessment & Plan Assessment/Plan (1) New onset atrial fibrillation: (2) CHF (congestive heart failure): QUALIFIERS: Heart failure type: unspecified Heart failure chronicity: unspecified Qualified Code(s): I50.9 - Heart failure, unspecified (3) Elevated TSH: (4) Elevated LFTs: PLAN: Plan Patient is a 73-year-old female who presented [place] ED with palpitations and shortness of breath with exertion. 1. New onset A-fib with RVR, newly diagnosed HFrEF ? Cardiology following. Presented in A-fib/flutter with RVR. Had good rate improvement in the ED with IV Cardizem bolus, no need for Cardizem drip. Echo 07/05 showed EF 20%, severe global LV dysfunction. Had good urine output on IV Lasix 40 mg twice daily with contraction noted on labs, Lasix discontinued on 07/05. 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 Per cardiology, currently treating with Toprol 50 mg twice daily and spironolactone 25 mg daily. Patient tolerating this well, blood pressure remaining stable. Planning to add losartan 25 mg daily this evening with continued monitoring through tomorrow. If remains stable, possible discharge home tomorrow. Continue Eliquis that was started on admission. Per cardiology, will continue Eliquis for at least 3 to 4 weeks with plan for possible cardioversion at that time. 2. Mild SEVEN, improved ? Creatinine 1.25 on admit, baseline around 0.7-0.8. Suspect prerenal etiology due to cardiorenal syndrome. Improved on hospital day 2 but then slightly worsened again on day 3, likely due to contraction from IV Lasix, Lasix discontinued on 07/05. Improved back to normal on 07/06. Continue to monitor daily BMP and urine output. 3. Elevated LFTs, improving ? T. bili 1.30, AST 185, ALT 192, alk phos 125 on admit. Previous LFTs in January normal. No abdominal pain. Suspect mild congestive hepatopathy in setting of likely new onset heart failure. Right upper quadrant ultrasound on admit unremarkable. LFTs improving on hospital day 2, no need for further monitoring of labs at this time. 4. Mild hypothyroidism ? TSH 8.94, free T4 0.79 (borderline low) on admit. Thyroid antibodies pending. Per patient request, will hold on starting Synthroid for now but would recommend close outpatient follow-up on discharge. 5. Hyperlipidemia ? On home simvastatin 20 mg daily. Repeat lipid panel on admit showed total cholesterol 190, LDL 86, HDL 83. Continue home simvastatin. DVT prophylaxis: Not indicated, on Eliquis CODE STATUS: Full code, verified Expected disposition: Home, 1 to 2 days Total clinical time spent by myself addressing the patient's medical issues, reviewing all the data, and collaborating with patient's care team: 35 minutes. Charges/Coding Visit Charges Inpatient E&M: 64841 Subs Hosp L2
[2024-07-06 14:10] LABS: Thyroglobulin Antibody < 1.0 IU/mL (0.0-0.9); Thyroid Peroxidase AB < 9 IU/mL (0-34)
--- NOTE | 2024-07-06 15:11 | CASEMGMT ---
Discharge Planning A list of?HH providers including quality and resource use data and consistent with the patient's preferred geographic region, medical needs, and insurance network was created in [employer].? This list was provided to the RN HANK. Sujey Alcantara, Discharge Planning Asst.
[2024-07-06] MEDS: Acetaminophen 325 MG Tablet 650 MG PO (21:28)
[2024-07-06] MEDS: Atorvastatin Calcium 10 MG Tablet PO (21:29)
[2024-07-07] VITALS (7 sets, daily range): BP systolic 97–126; BP diastolic 71–84; PULSE 66–77; RESP 16–18; TEMP 36.3–36.6; O2SAT 96–99; BMI 21.7
[2024-07-07 06:12] LABS: AST(SGOT) 41 U/L (15-37); Alanine Aminotransfer ALT/SGPT 82 U/L (13-56); Albumin, Serum 3.3 g/dL (3.2-5.0); Alkaline Phosphatase 114 U/L (45-117); Anion Gap 5 (5-15); BUN 28 mg/dL (7-18); BUN/Creat Ratio 25.5 RATIO (10-20); Chloride 105 mmol/L (98-107); EST Glomerular Filtration Rate 52 mL/min (>60); Est Glom Filt Rate - Afr Amer 63 mL/min (>60); Globulin 3.4 g/dL (2.2-4.2); Glucose 99 mg/dL (74-106); Potassium 4.1 mmol/L (3.5-5.1); Protein, Total 6.7 g/dL (6.4-8.2); Sodium Level 139 mmol/L (136-145)
[2024-07-07 07:42] LABS: BNP,B-Type NATRIURETIC PEPTIDE 656.3 pg/mL (0-100)
--- NOTE | 2024-07-07 08:26 | PN.CARD_ITS ---
Subjective Subjective The patient reports that she walked about 4 laps yesterday around the nursing unit and felt great in the morning. However, afternoon she walked 1 lap and got dyspneic. She did not let anyone know and no vital signs were obtained. She reports since that time she is felt well. She had an episode the day before with a similar dyspneic event with walking. We were unable to start the losartan yesterday due to low blood pressure in the afternoon. Her blood pressure today this morning is 126/84. Telemetry continues to show atrial fibrillation with a heart rate in the 60 to 70 bpm range. Objective Data Vital Signs: Vital Signs Temp Pulse Resp BP Pulse Ox O2 Del Method 97.3 F L 66 18 126/84 H 98 Room Air 07/07/24 04:50 07/07/24 04:50 07/07/24 04:50 07/07/24 08:20 07/07/24 04:50 07/07/24 04:50 Oxygen Delivery Method Room Air Weight: 130 lb 4.691 oz Body Mass Index (BMI) 21.7 Intake & Output: Intake and Output for Last 24 Hours 07/05/24 07/06/24 07/07/24 23:59 23:59 23:59 Intake Total 480 / 480 1105 / 1105 Balance 480 / 480 1105 / 1105 Lab / Micro Data Attestation: I reviewed the patient's lab results. 07/04/24 04:58 07/07/24 05:05 Labs: Laboratory Results - last 24 hr 07/04/24 04:58: Thyroglobulin Antibody < 1.0, Thyroid Peroxidase Ab < 9 07/07/24 05:05: Sodium 139, Potassium 4.1, Chloride 105, Carbon Dioxide 29.0, Anion Gap 5, BUN 28 H, Creatinine 1.10 H, Estim Creat Clear Calc 41.60, Est GFR (MDRD) Af Amer 63, Est GFR (MDRD) Non-Af 52 L, BUN/Creatinine Ratio 25.5 H, Glucose 99, Calcium 9.0, Total Bilirubin 1.30 H, AST 41 H, ALT 82 H, Alkaline Phosphatase 114, B-Natriuretic Peptide 656.3 H, Total Protein 6.7, Albumin 3.3, Globulin 3.4, Albumin/Globulin Ratio 1.0 Rhythm Strip Rhythm Strip: A-fib Rate: 70 Cardiology Labs/Tests 07/07/24 05:05: Sodium 139, Potassium 4.1, Chloride 105, Carbon Dioxide 29.0, Anion Gap 5, BUN 28 H, Creatinine 1.10 H, Est GFR (MDRD) Af Amer 63, Est GFR (MDRD) Non-Af 52 L, BUN/Creatinine Ratio 25.5 H, Glucose 99, Calcium 9.0, Total Bilirubin 1.30 H, B-Natriuretic Peptide 656.3 H Rhythm: EKG: ECHO: Stress Test: Cardiac Cath: PCI: CT Surgery: Holter monitor: EPS: PPM: CXR: Chest CT Scan: Physical Exam Const alert and oriented x3 HEENT normocephalic Eyes EOMs intact bilaterally Neck no JVD Chest inspection of chest normal Resp normal respiratory effort and clear to auscultation bilaterally Cardio Jugular Venous Distention: Negative for JVD Rate: regular rate Rhythm: abnormal rhythm irregularly irregular Heart Sounds: S1 normal and S2 normal; Negative for click, gallop or murmur GI normal to inspection, nondistended, normoactive bowel sounds Extremity no pedal edema Skin no rashes or lesions noted Neuro Neuro Narrative: Alert and oriented x 3 Psych mental status grossly normal Assessment & Plan Assessment/Plan (1) Elevated LFTs: PLAN: Patient's LFTs have decreased since admission consistent with most likely being related to cardiac congestion. These will be reevaluated in the ambulatory setting in 2 to 3 weeks. Her bilirubin does remain elevated slightly. The patient does not have any other signs of congestion. (2) CHF (congestive heart failure): QUALIFIERS: Heart failure type: unspecified Heart failure chronicity: unspecified Qualified Code(s): I50.9 - Heart failure, unspecified PLAN: The patient is depressed ejection fraction is thought to be related to tachycardia mediated cardiomyopathy. The plan is to titrate her guideline directed medical therapy to maximum tolerated doses and maintain her on the Eliquis for 3 to 4 weeks and then bring her back for attempted cardioversion. Following that cardioversion echocardiogram will be reevaluated to relook at her LV function after 3 months of therapy. The patient's had no signs or symptoms of angina or ischemia. We were not able to start losartan yesterday due to low blood pressure her blood pressure is better today she will be ambulating in the halls and we will attempt to start her on losartan this afternoon. This will need to be spaced between her beta-julianne therapy. The beta-julianne is controlling her heart rate well. (3) New onset atrial fibrillation: PLAN: Patient's atrial fibrillation is rate controlled and she is on Eliquis. The plan is to treat her for 4 weeks and then consider direct-current cardioversion if she does not spontaneously convert. PLAN: Plan 1. Add losartan 25 mg daily this afternoon as blood pressure will tolerate. 2. Consider discharge to home tomorrow provided she tolerates the medical regiment without incident. 3. Will follow-up in the office in 1 week for further titration of medications. 4. Will plan for direct-current cardioversion after she is evaluated following her trip to [place] the end of this month. Charges/Coding Visit Charges Inpatient E&M: 05490 Subs Hosp L2
[2024-07-07] MEDS: APIXABAN 5 MG TABLET PO ×2 (09:02→21:14)
[2024-07-07] MEDS: Metoprolol(XL)Succ 50 MG Tablet PO ×2 (09:02→21:14)
[2024-07-07] MEDS: Calcium (Elemental) 500 MG Tablet PO (09:02)
[2024-07-07] MEDS: Spironolactone 25 MG Tablet PO (09:02)
--- NOTE | 2024-07-07 12:32 | PCM.PN.HOSP ---
Reason for Visit Reason for Visit: Diagnoses Unspecified atrial fibrillation (07/03/24) Heart failure, unspecified (07/03/24) Other specified abnormal findings of blood chemistry (07/03/24) Subjective Subjective Patient did have an episode of mild shortness of breath overnight with walking around the floor. Noted that she had walked her on the floor a few times prior to having this fatigue and shortness of breath. Vital signs remained stable at that time. Saw patient at bedside this morning. Patient appeared similar to previous days, was sitting up comfortably in bedside chair, in no acute distress. She was hoping to go home soon but was understanding about the need for continued medication changes per cardiology recs. Denied any other new concerns today. Objective Data Objective Data Vital Signs: Vital Signs Temp Pulse Resp BP Pulse Ox O2 Del Method 97.6 F L 77 18 126/84 H 96 Room Air 07/07/24 08:20 07/07/24 09:02 07/07/24 08:20 07/07/24 08:20 07/07/24 08:20 07/07/24 08:20 Oxygen Delivery Method Room Air Weight: 59.1 kg Body Mass Index (BMI) 21.7 Intake & Output: Intake and Output for Last 24 Hours 07/05/24 07/06/24 07/07/24 23:59 23:59 23:59 Intake Total 480 / 480 1105 / 1105 Balance 480 / 480 1105 / 1105 Lab / Micro Data 07/04/24 04:58 07/07/24 05:05 Labs: Laboratory Results - last 24 hr 07/04/24 04:58: Thyroglobulin Antibody < 1.0, Thyroid Peroxidase Ab < 9 07/07/24 05:05: Sodium 139, Potassium 4.1, Chloride 105, Carbon Dioxide 29.0, Anion Gap 5, BUN 28 H, Creatinine 1.10 H, Estim Creat Clear Calc 41.60, Est GFR (MDRD) Af Amer 63, Est GFR (MDRD) Non-Af 52 L, BUN/Creatinine Ratio 25.5 H, Glucose 99, Calcium 9.0, Total Bilirubin 1.30 H, AST 41 H, ALT 82 H, Alkaline Phosphatase 114, B-Natriuretic Peptide 656.3 H, Total Protein 6.7, Albumin 3.3, Globulin 3.4, Albumin/Globulin Ratio 1.0 Micro: Microbiology 07/03/24 14:52 Mucosa - Nasopharyngeal Respiratory Panel (PCR) - Final 07/03/24 14:52 Mucosa - Nasopharyngeal Coronavirus COVID-19 PCR - Final Rhythm Strip Rhythm Strip: A-fib Rate: 70 Physical Exam Const alert, oriented x3, no apparent distress, average body habitus, healthy appearing and well nourished Constitutional Narrative: Pleasant elderly female, appears younger than stated age, energy improved from admission, sitting up comfortably in bed, conversing normally, in no acute distress. Stable. General Appearance: cooperative, comfortable, well kempt and well developed HEENT normocephalic, head/scalp atraumatic, hearing grossly normal bilaterally, nasal mucous membranes and turbinates normal and moist oral mucous membranes Eyes PERRL, EOMs intact bilaterally and conjunctivae normal Neck full ROM and no JVD Chest inspection of chest normal Resp normal respiratory effort and no use of accessory muscles Resp Narrative: Diminished breath sounds in bilateral lung bases. Otherwise no crackles, improved from previous. No wheezing noted. Breathing comfortably on room air at rest. Stable. Cardio no murmurs and peripheral pulses 2+ throughout Cardio Narrative: A-fib/flutter, rate controlled. GI normal to inspection, nondistended, normoactive bowel sounds, soft to palpation, non-tender and non-distended Back/Spine normal ROM Extremity normal to inspection, full ROM and no pedal edema Skin no rashes or lesions noted Neuro moves all extremities and no focal motor deficits Speech: speech normal Psych mental status grossly normal Assessment & Plan Assessment/Plan (1) New onset atrial fibrillation: (2) CHF (congestive heart failure): QUALIFIERS: Heart failure type: unspecified Heart failure chronicity: unspecified Qualified Code(s): I50.9 - Heart failure, unspecified (3) Elevated TSH: (4) Elevated LFTs: PLAN: Plan Patient is a 73-year-old female who presented [facility] ED with palpitations and shortness of breath with exertion. 1. New onset A-fib with RVR, newly diagnosed HFrEF ? Cardiology following. Presented in A-fib/flutter with RVR. Had good rate improvement in the ED with IV Cardizem bolus, no need for Cardizem drip. Echo 07/05 showed EF 20%, severe global LV dysfunction. Had good urine output on IV Lasix 40 mg twice daily with contraction noted on labs, Lasix discontinued on 07/05. 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 Per cardiology, currently treating with Toprol 50 mg twice daily and spironolactone 25 mg daily. Patient tolerating this well, blood pressure remaining stable. Planning to add losartan 25 mg daily this evening with continued monitoring through tomorrow. If remains stable, likely discharge home tomorrow. Continue Eliquis that was started on admission. Per cardiology, will continue Eliquis for at least 3 to 4 weeks with plan for possible cardioversion at that time. 2. Mild SEVEN, improved ? Creatinine 1.25 on admit, baseline around 0.7-0.8. Suspect prerenal etiology due to cardiorenal syndrome. Improved on hospital day 2 but then slightly worsened again on day 3, likely due to contraction from IV Lasix, Lasix discontinued on 07/05. Improved back to normal on 07/06. Continue to monitor daily BMP and urine output. 3. Elevated LFTs, improving ? T. bili 1.30, AST 185, ALT 192, alk phos 125 on admit. Previous LFTs in January normal. No abdominal pain. Suspect mild congestive hepatopathy in setting of likely new onset heart failure. Right upper quadrant ultrasound on admit unremarkable. LFTs improving on hospital day 2, no need for further monitoring of labs at this time. 4. Mild hypothyroidism ? TSH 8.94, free T4 0.79 (borderline low) on admit. Thyroid antibodies pending. Per patient request, will hold on starting Synthroid for now but would recommend close outpatient follow-up on discharge. 5. Hyperlipidemia ? On home simvastatin 20 mg daily. Repeat lipid panel on admit showed total cholesterol 190, LDL 86, HDL 83. Continue home simvastatin. DVT prophylaxis: Not indicated, on Eliquis CODE STATUS: Full code, verified Expected disposition: Home, 1 to 2 days Total clinical time spent by myself addressing the patient's medical issues, reviewing all the data, and collaborating with patient's care team: 35 minutes. Charges/Coding Visit Charges Inpatient E&M: 51534 Subs Hosp L2
[2024-07-07] MEDS: Acetaminophen 325 MG Tablet 650 MG PO ×2 (13:30→21:22)
[2024-07-07] MEDS: Losartan Potassium 25 MG Tablet PO (16:13)
--- NOTE | 2024-07-07 19:56 | PCM.HOSP.N ---
Hospitalist Note Patient with symptomatic 19 beat VT, recent labs with K 4.1, elevated TSH with normal range FT4, magnesium 2.0. RN will notify Dr. Falcon in case preference to follow versus consideration amiodarone given PAF RVR, HF presentation.
[2024-07-07 20:35] LABS: Magnesium 2.3 mg/dL (1.6-2.6)
[2024-07-07] MEDS: Atorvastatin Calcium 10 MG Tablet PO (21:25)
[2024-07-08 03:15] VITALS: BP 112/73; PULSE 58; RESP 15; TEMP 36.6; O2SAT 95
[2024-07-08 05:00] VITALS: BMI 22.0
[2024-07-08 06:23] LABS: Anion Gap 5 (5-15); BUN 31 mg/dL (7-18); BUN/Creat Ratio 28.7 RATIO (10-20); Calcium,Total 8.9 mg/dL (8.5-10.1); Chloride 107 mmol/L (98-107); Creatinine, Serum 1.08 mg/dL (0.55-1.02); EST Glomerular Filtration Rate 53 mL/min (>60); Est Glom Filt Rate - Afr Amer 64 mL/min (>60); Estimated Creatinine Clearance 42.37 ml/min; Glucose 94 mg/dL (74-106); Potassium 4.1 mmol/L (3.5-5.1); Sodium Level 139 mmol/L (136-145)
--- NOTE | 2024-07-08 08:03 | PN.CARD_ITS ---
Subjective Subjective The patient reports she has been up and around the room without restrictions she has been walking the halls just only feeling tired after several laps. She denies any dizziness denies any lightheadedness with change of position. The patient did have an episode of short run of nonsustained VT by telemetry last evening. Magnesium was normal as were the other electrolytes. She was totally asymptomatic and did not him know anything was going on. The patient tolerated losartan at 25 mg daily. We discussed in detail how to take her medications to spread them out to avoid orthostatic changes as we titrate the medications. Objective Data Vital Signs: Vital Signs Temp Pulse Resp BP Pulse Ox O2 Del Method 97.9 F 58 L 15 112/73 95 Room Air 07/08/24 03:15 07/08/24 03:15 07/08/24 03:15 07/08/24 03:15 07/08/24 03:15 07/08/24 03:15 Oxygen Delivery Method Room Air Weight: 132 lb 4.438 oz Body Mass Index (BMI) 22.0 Intake & Output: Intake and Output for Last 24 Hours 07/06/24 07/07/24 07/08/24 23:59 23:59 23:59 Intake Total 1105 / 1105 360 / 360 Output Total Balance 1105 / 1105 359 / 359 Lab / Micro Data Attestation: I reviewed the patient's lab results. 07/04/24 04:58 07/08/24 05:48 Labs: Laboratory Results - last 24 hr 07/07/24 20:17: Magnesium 2.3 07/08/24 05:48: Sodium 139, Potassium 4.1, Chloride 107, Carbon Dioxide 27.0, Anion Gap 5, BUN 31 H, Creatinine 1.08 H, Estim Creat Clear Calc 42.37, Est GFR (MDRD) Af Amer 64, Est GFR (MDRD) Non-Af 53 L, BUN/Creatinine Ratio 28.7 H, Glucose 94, Calcium 8.9 Rhythm Strip Rhythm Strip: A-fib Rate: 65 Cardiology Labs/Tests 07/07/24 20:17: Magnesium 2.3 07/08/24 05:48: Sodium 139, Potassium 4.1, Chloride 107, Carbon Dioxide 27.0, Anion Gap 5, BUN 31 H, Creatinine 1.08 H, Est GFR (MDRD) Af Amer 64, Est GFR (MDRD) Non-Af 53 L, BUN/Creatinine Ratio 28.7 H, Glucose 94, Calcium 8.9 Rhythm: EKG: ECHO: Stress Test: Cardiac Cath: PCI: CT Surgery: Holter monitor: EPS: PPM: CXR: Chest CT Scan: Physical Exam Const alert and oriented x3 HEENT normocephalic Eyes EOMs intact bilaterally Neck no JVD Chest inspection of chest normal Resp normal respiratory effort and clear to auscultation bilaterally Cardio Rate: regular rate Rhythm: abnormal rhythm irregularly irregular Heart Sounds: S1 normal and S2 normal; Negative for click, gallop or murmur Extremity no pedal edema Skin no rashes or lesions noted Neuro Neuro Narrative: Alert and oriented x 3 Psych mental status grossly normal Assessment & Plan Assessment/Plan (1) New onset atrial fibrillation: PLAN: The patient is atrial fibrillation rate has been well-controlled on her current medical therapy. She remains on Eliquis and we have we will provide her with a card for the first 30 days. It appears that her rapid ventricular response on presentation as well as the primary etiology of her global LV dysfunction. Her rate has been well-controlled since hospitalized she did have 1 episode of nonsustained VT which was asymptomatic. The patient will be treated with Eliquis for 4 weeks we will reevaluate her in the office on July 16 at 2 PM. Will then schedule her for direct-current cardioversion the first or second week of August. (2) CHF (congestive heart failure): QUALIFIERS: Heart failure type: unspecified Heart failure chronicity: unspecified Qualified Code(s): I50.9 - Heart failure, unspecified PLAN: Patient has global LV systolic dysfunction with a EF in the 20% range on her initial echo. She is now tolerating triple drug therapy with beta-julianne ARB and spironolactone. Her blood pressures remained stable she is actively walking in the halls without symptoms. She denies any orthostatic changes. It has been difficult due to her blood pressure to get her titrated on her medical regiment but she is currently tolerating 3 drug therapy. The patient be reevaluated in our office July 16 at 2 PM additional medical titrations will be discussed and evaluated at that time pending how her blood pressures have done in her home environment. She is also to bring her blood pressure machine in with her when she comes in for that visit. (3) Elevated LFTs: PLAN: The patient's LFTs have started to come down as of yesterday. This is probably related to hepatic congestion related to her LV dysfunction. She will have a complete metabolic panel and CBC repeated when she is seen in the office July 16. (4) Elevated TSH: PLAN: TSH will be reevaluated in 1 month. Currently she is not on replacement therapy. PLAN: Plan 1. Will continue guideline directed medical therapy with metoprolol succinate 50 mg twice daily which she will take with breakfast and supper. 2. Losartan 25 mg daily which she will take in the evening sometime before bedtime. 3. Spironolactone 25 mg each morning with the metoprolol. 4. Follow-up with Dr. Falcon in the [facility] office July 16 at 2 PM. 5. Will obtain complete metabolic panel and CBC on July 16 after the office visit. 6. Will address thyroid functions after we have attempted direct-current cardioversion in early August 2024. 7. Continue Eliquis 5 mg twice daily. Will reevaluate July 16, 2024 and again just prior to attempted direct-current cardioversion in early August 2024. 8. At the July 16 office visit we will discuss her planned [place] cruise. My concern is that given her LV dysfunction that until we can get her actively treated and aggressively titrated on her guideline directed medical therapy she will probably be limited with her activity levels and not enjoy the cruise. She does have insurance for the trip. Charges/Coding Visit Charges Inpatient E&M: 22875 [facility] L3
[2024-07-08 09:39] VITALS: BP 99/55; PULSE 88; RESP 16; TEMP 36.6; O2SAT 97
[2024-07-08] MEDS: APIXABAN 5 MG TABLET PO (09:50)
[2024-07-08] MEDS: Calcium (Elemental) 500 MG Tablet PO (09:50)
[2024-07-08] MEDS: Spironolactone 25 MG Tablet PO (09:51)
--- NOTE | 2024-07-08 10:07 | PCM.DC ---
Discharge Instructions Diet Discharge Diet: Low fat / Low cholesterol Activity Discharge Activity: Return to Normal Activity Dressing / Incision Call your doctor if you observe: Fever of 101 or Higher, Shortness of breath, Dizziness, Fainting spells, Swelling in the ankles, Chest pain and Increased palpitations (irregular heartbeat) Follow Up Care Test Results: Test results from this visit will be discussed in further detail at your follow-up appointment, if applicable. Discharge Plan Admission Admit Date/Time: 07/03/24 11:14 Attending Provider: Percy Wayne Primary Care Provider: Hortensia Wesley Consulting Providers: Alonso Falcon; Edgar [place] Instructions Patient Instructions: AFib Dc, Cardiomyopathy Dc, ED Heart Failure, Congestive (CHF), ED CHF Left Side Discharge Orders/Prescriptions Prescriptions: New metoprolol succinate 50 mg Tablet Extended Release 24 Hr 50 mg PO BID 30 Days Qty: 60 0RF spironolactone 25 mg Tablet 25 mg PO DAILY 30 Days Qty: 30 0RF losartan 25 mg Tablet 25 mg PO DAILY 30 Days Qty: 30 0RF Eliquis 5 mg Tablet 5 mg PO BID 30 Days Qty: 60 0RF Continued simvastatin 20 mg tablet 20 mg PO DAILY calcium carbonate [Calcium 500] 500 mg calcium (1,250 mg) tablet 500 mg PO DAILY flaxseed oil See Rx Instructions .ROUTE .COMPLEX Rx Instructions: 1000 mg once a day daily; Referrals / Follow Up: Hortensia Wesley DO [Primary Care Provider] - 07/14/24 12:50 pm Alonso Falcon MD [Med Staff - Active Staff] - 07/16/24 2:00 pm Disposition Disposition (needs filled in before D/C Order can be placed): Home, Self Care
[2024-07-08 10:08] VITALS: PULSE 88
[2024-07-08] MEDS: Metoprolol(XL)Succ 50 MG Tablet PO (10:08)
[2024-07-08] MEDS: Acetaminophen 325 MG Tablet 650 MG PO (10:08)
--- NOTE | 2024-07-08 10:48 | CASEMGMT ---
Patient has order for discharge. Patient discharging on Eliquis, LASHONDA CM called [facility], copay is $542.32 as patient is in donut hole. LASHONDA CM in to patient's room to discuss discharge needs. Patient updated regarding Eliquis copay and savings card provided. Patient denied further needs or concerns. Patient had no further questions or concerns.
--- NOTE | 2024-07-08 11:56 | PCM.DC.SUM ---
Providers Date of Admission: 07/03/24 Primary Care Physician: Dr. Hortensia Wesley DO Consultations 07/04/24 16:13 Consult: Cardiology Routine Consulting Provider: Alonso Falcon Reason for Consult: new onset afib/flutter with rvr with suspected new CHF EMERGENT Consult: No MD Notified: Yes Date Notified: 07/04/24 Time Notified: 16:13 Method of Notification: Text Comments:: Dr. Ochoa notified. Reason For Visit: NEW ONSET AFIB W/ RVR, CONCERN FOR CHF Diagnosis Discharge Diagnosis (1) New onset atrial fibrillation: Status: Acute Code(s): I48.91 - Unspecified atrial fibrillation (2) CHF (congestive heart failure): Status: Acute Code(s): I50.9 - Heart failure, unspecified Qualifiers: Heart failure type: unspecified Heart failure chronicity: unspecified Qualified Code(s): I50.9 - Heart failure, unspecified (3) Elevated LFTs: Status: Acute Code(s): R79.89 - Other specified abnormal findings of blood chemistry (4) Elevated TSH: Status: Acute Code(s): R79.89 - Other specified abnormal findings of blood chemistry Medications at Discharge Home Medications calcium carbonate (Calcium 500) 500 mg PO DAILY supplement 09/04/21 simvastatin 20 mg tablet 20 mg PO DAILY cholesterol 09/04/21 flaxseed oil See Rx Instructions .Route .COMPLEX supplement 07/03/24 apixaban 5 mg tablet (Eliquis) 5 mg PO BID 30 days #60 tabs 07/08/24 losartan 25 mg tablet 25 mg PO DAILY 30 days #30 tabs 07/08/24 metoprolol succinate 50 mg tablet,extended release 24 hr 50 mg PO BID 30 days #60 tabs 07/08/24 spironolactone 25 mg tablet 25 mg PO DAILY 30 days #30 tabs 07/08/24 Hospital Course Operations None Procedures 2-D Echocardiogram Summary of Care Provided Minutes Spent on Discharge: 35 Hospital Course: Per HPI: SAMY THURMAN, is a 73 F who presented to [facility] ED on 07/03/2024 with palpitations and shortness of breath with exertion. Patient states that the palpitations have been ongoing for about 1 week. She previously had history of a irregular heartbeat of unclear significance so she did not think much of the palpitations at first. However, they became more intense over the past 2 to 3 days and she began to develop some shortness of breath with exertion yesterday. Was found to be tachycardic on arrival to the ED, EKG showed rate of 159 bpm with concern for SVT versus A-fib. Patient was given IV adenosine 6 mg and per ED physician, underlying rhythm appears to be A-fib versus a flutter. She was given a dose of IV Cardizem 10 mg with improvement in heart rate to 107 bpm. Chest x-ray showed fluffy bilateral infiltrates that appeared consistent with CHF. Labs were notable for BNP 741, TSH 8.94, AST 185, ALT 192, BUN 23, creatinine 1.25 (baseline around 0.7). Given new onset A-fib with concern for heart failure, hospitalist was contacted for admission. I saw the patient at bedside in the ED, was present. 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 He notes that the patient has a history of mitral valve insufficiency seen on an echo many years ago that has not caused any issues; she otherwise has no other heart related issues. Patient otherwise states she is in good health, lives at home with and has good functional status at baseline. She has been told that her thyroid level was mildly elevated at previous PCP visits but no medication was needed. Only other home medication currently is a low-dose statin medication. Patient denies any fevers or chills today. Denies any pain or discomfort. No other acute concerns at this time. Hospital Course: 1. New onset A-fib with RVR, newly diagnosed HFrEF ? Cardiology following. Presented in A-fib/flutter with RVR. Had good rate improvement in the ED with IV Cardizem bolus, no need for Cardizem drip. Echo 07/05 showed EF 20%, severe global LV dysfunction. Had good urine output on IV Lasix 40 mg twice daily with contraction noted on labs, Lasix discontinued on 07/05. 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 Per cardiology, currently treating with Toprol 50 mg twice daily and spironolactone 25 mg daily. Patient tolerating this well, blood pressure remaining stable. Planning to add losartan 25 mg daily this evening with continued monitoring through tomorrow. If remains stable, likely discharge home tomorrow. Continue Eliquis that was started on admission. Per cardiology, will continue Eliquis for at least 3 to 4 weeks with plan for possible cardioversion at that time. 07/08/2024: She is feeling better today. Still has fatigue which can be a combination of lack of sleep as well as the metoprolol. Echo on 07 05 showed an EF of 20% with a PASP of 43 mmHg, cardiology recommends aggressive intervention with metoprolol 50 mg p.o. twice daily as well as Aldactone 25 mg p.o. daily and losartan 25 mg p.o. daily. She has been having some sensitivity issues to the blood pressure medications in terms of becoming transiently hypotensive, cardiology did have an extensive discussion with her this morning about how to take her medications. She will need to follow-up with cardiology on 07/16/2024 at 2 PM and I recommended she follow-up with her PCP and she has an appointment on 07/14/2024. I discussed with her the plan for discharge and she expressed understanding of the risk benefits going home and would like to go home today. She will continue with her Eliquis as well as she will likely need to be cardioverted as an outpatient in the near future 2. Elevated LFTs, improving ? T. bili 1.30, AST 185, ALT 192, alk phos 125 on admit. Previous LFTs in January normal. No abdominal pain. Suspect mild congestive hepatopathy in setting of likely new onset heart failure. Right upper quadrant ultrasound on admit unremarkable. LFTs improving on hospital day 2, no need for further monitoring of labs at this time. 07/08/2024: Monitor as an outpatient 3. Mild hypothyroidism ? TSH 8.94, free T4 0.79 (borderline low) on admit. Thyroid antibodies pending. Per patient request, will hold on starting Synthroid for now but would recommend close outpatient follow-up on discharge. 07/08/2024: This will be addressed by cardiology at her next appointment 4. Hyperlipidemia ? On home simvastatin 20 mg daily. Repeat lipid panel on admit showed total cholesterol 190, LDL 86, HDL 83. Continue home simvastatin. Physical Exam Narrative General: Alert, Oriented x3, Cooperative, No apparent distress HEENT: Atraumatic, PERRLA, EOMI, Normocephalic Oral: Moist Mucosa Neck: Supple, No JVD Lungs: Clear to auscultation, Normal air movement, No rhonchi, No wheeze, No rales Cardiovascular: Regular rate, irregular rhythm, Normal S1, Normal S2, No murmurs Abdomen: Soft, Non Tender, Non-Distended, No Hepato-splenomegaly Extremities: No edema, Capillary Refill Less than 3 Seconds Skin: No rashes, No breakdown Musculoskeletal: No Tenderness to Palpation of Joints or Extremities Neurological: No focal neurological deficits, Motor Exam 5/5 strength throughout, Sensory exam intact to light touch and pain Psych/Mental Status: Normal Affect, Appropriate Weight / BMI Weight Weight: 132 lb 4.438 oz Body Mass Index (BMI) 22.0 ABG / Lab / Microbiology Data 07/04/24 04:58 07/08/24 05:48 Laboratory: Laboratory Results - last 24 hr 07/07/24 20:17: Magnesium 2.3 07/08/24 05:48: Sodium 139, Potassium 4.1, Chloride 107, Carbon Dioxide 27.0, Anion Gap 5, BUN 31 H, Creatinine 1.08 H, Estim Creat Clear Calc 42.37, Est GFR (MDRD) Af Amer 64, Est GFR (MDRD) Non-Af 53 L, BUN/Creatinine Ratio 28.7 H, Glucose 94, Calcium 8.9 Microbiology: Microbiology 07/03/24 14:52 Mucosa - Nasopharyngeal Respiratory Panel (PCR) - Final 07/03/24 14:52 Mucosa - Nasopharyngeal Coronavirus COVID-19 PCR - Final D/C Instructions Discharge Diet: Low fat / Low cholesterol Call your doctor if you observe: Fever of 101 or Higher, Shortness of breath, Dizziness, Fainting spells, Swelling in the ankles, Chest pain and Increased palpitations (irregular heartbeat) Meaningful Use Info Meaningful Use Meaningful Use Diagnoses (Choose all that apply): None applicable Ischemic Stroke Statin Dosing Therapy Reference: STATIN DOSE THERAPY REFERENCE: * Patients > 75 years receive moderate or high dose statin therapy. * Patients 75 years or YOUNGER should receive HIGH intensity statin dose unless contraindicated. You will be required to document reason for non-treatment if statin daily dose does not meet guidelines. HIGH DOSE STATIN THERAPY DAILY Atorvastatin > than or = to 40 mg Rosuvastatin > than or = to 20 mg Amlodipine + Atorvastatin > than or = to 2.5/40 mg Ezetimibe + Simvastatin 10/80 mg Simvastatin 80mg Discharge Plan Admission Admit Date/Time: 07/03/24 11:14 Attending Provider: Percy Wayne Primary Care Provider: Hortensia Wesley Consulting Providers: Alonso Falcon; Edgar Park Instructions Patient Instructions: AFib Dc, Cardiomyopathy Dc, ED Heart Failure, Congestive (CHF), ED CHF Left Side Discharge Orders/Prescriptions Prescriptions: New metoprolol succinate 50 mg Tablet Extended Release 24 Hr 50 mg PO BID 30 Days Qty: 60 0RF spironolactone 25 mg Tablet 25 mg PO DAILY 30 Days Qty: 30 0RF losartan 25 mg Tablet 25 mg PO DAILY 30 Days Qty: 30 0RF Eliquis 5 mg Tablet 5 mg PO BID 30 Days Qty: 60 0RF Continued simvastatin 20 mg tablet 20 mg PO DAILY calcium carbonate [Calcium 500] 500 mg calcium (1,250 mg) tablet 500 mg PO DAILY flaxseed oil See Rx Instructions .ROUTE .COMPLEX Rx Instructions: 1000 mg once a day daily; Referrals / Follow Up: Hortensia Wesley DO [Primary Care Provider] - 07/14/24 12:50 pm Alonso Falcon MD [Med Staff - Active Staff] - 07/16/24 2:00 pm Disposition Disposition (needs filled in before D/C Order can be placed): Home, Self Care Charges/Coding Visit Charges Inpatient E&M: 86089 Disch Hosp >30min
--- NOTE | 2024-07-08 15:24 | PHA.DC.MR.R ---
Pharmacy [place] Med Reconciliation Pharmacy Service has performed discharge medication reconciliation for this patient. Medication education papers prepared, patient discharged before I was able to admissions counselor. Medications reviewed. The patient's discharge medication list was reviewed for discrepancies and discrepancies were resolved. Medications at Discharge Home Medications calcium carbonate (Calcium 500) 500 mg PO DAILY supplement 09/04/21 simvastatin 20 mg tablet 20 mg PO DAILY cholesterol 09/04/21 flaxseed oil See Rx Instructions .Route .COMPLEX supplement 07/03/24 apixaban 5 mg tablet (Eliquis) 5 mg PO BID 30 days #60 tabs 07/08/24 losartan 25 mg tablet 25 mg PO DAILY 30 days #30 tabs 07/08/24 metoprolol succinate 50 mg tablet,extended release 24 hr 50 mg PO BID 30 days #60 tabs 07/08/24 spironolactone 25 mg tablet 25 mg PO DAILY 30 days #30 tabs 07/08/24
== END 2024-07-08 12:03 | disposition home or self-care (01) | DRG 308 ==
LOC: ED 10:50 → PCU 11:25
PROVIDERS: Internal Medicine Cardiovascular Disease; Admitting Provider Hospitalist; Emergency Provider Emergency Medicine; PCP Family Medicine; Visit Provider Family Medicine
DX: I48.91 Unspecified atrial fibrillation (principal); I50.21 Acute systolic (congestive) heart failure; N17.9 Acute kidney failure, unspecified; I13.0 Hypertensive heart and chronic kidney disease with heart failure and stage 1 through stage 4 chronic kidney disease, or unspecified chronic kidney disease; I47.20 Ventricular tachycardia, unspecified; E03.9 Hypothyroidism, unspecified; K76.1 Chronic passive congestion of liver; I48.92 Unspecified atrial flutter; E78.5 Hyperlipidemia, unspecified; Z82.62 Family history of osteoporosis; R79.89 Other specified abnormal findings of blood chemistry; Z79.01 Long term (current) use of anticoagulants
CPT/HCPCS: 36415; 71045; 76705; 80048; 80053; 80061; 81001; 83036; 83735; 83880; 84439; 84443; 84484; 85025; 85027; 86376; 86800; 87633; 87635; 93005; 93306; 94668; 99252; 99285; J7030; A4216; G0463; J0153; J1940

== ENCOUNTER → 2024-07-16 | Outpatient (CLI) | payer MEDICARE, OTHER, SELFPAY ==
[2024-07-16 16:25] LABS: Anion Gap 5 (5-15); BUN 27 mg/dL (7-18); Calcium,Total 9.2 mg/dL (8.5-10.1); Chloride 105 mmol/L (98-107); Creatinine, Serum 1.23 mg/dL (0.55-1.02); EST Glomerular Filtration Rate 46 mL/min (>60); Est Glom Filt Rate - Afr Amer 55 mL/min (>60); Glucose 96 mg/dL (74-106); Potassium 4.5 mmol/L (3.5-5.1); Sodium Level 140 mmol/L (136-145)
[2024-07-16 17:18] LABS: BNP,B-Type NATRIURETIC PEPTIDE 814.9 pg/mL (0-100)
== END | disposition home or self-care (01) ==
LOC: LAB 15:16
PROVIDERS: PCP Family Medicine; Referring Provider Internal Medicine Cardiovascular Disease; Visit Provider Internal Medicine Cardiovascular Disease
DX: I50.9 Heart failure, unspecified (principal)
CPT/HCPCS: 36415; 80048; 83880

== ENCOUNTER 2024-08-12 10:57 | Day surgery (SDC) | payer MEDICARE, OTHER, SELFPAY ==
--- NOTE | 2024-08-12 09:33 | EKG12_ITS ---
Test Reason : AFIB Blood Pressure : / mmHG Vent. Rate : 117 BPM Atrial Rate : 115 BPM P-R Int : 000 ms QRS Dur : 122 ms QT Int : 332 ms P-R-T Axes : 000 024 110 degrees QTc Int : 463 ms Atrial fibrillation with premature ventricular or aberrantly conducted complexes Left ventricular hypertrophy with QRS widening Abnormal ECG When compared with ECG of 03-JUL-2024 11:13, Nonspecific T wave abnormality no longer evident in Inferior leads Confirmed by Alonso Falcon ([id number]), movie editor ROBBIE KAT ([id number]) on 08/17/2024 1:59:38 PM Referred By: Alonso Falcon Confirmed By:Alonso Falcon
[2024-08-12 11:07] VITALS: BMI 21.6
--- NOTE | 2024-08-12 12:44 | PRO.PCM_ITS ---
Procedure Report Date of Procedure: 08/12/24
--- NOTE | 2024-08-12 12:44 | PCM.OP.PRO ---
Procedure Report Date of Procedure: 08/12/24 Direct-current cardioversion Patient was brought to the cath prep recovery area in a fasting state. She has been on Eliquis for over 4 weeks. She remains in atrial fibrillation with an rapid ventricular response episodically. The patient had denies any TIA or CVA type symptoms. She received etomidate anesthesia by Dr. Jeremy Kaplan. After appropriate anesthesia a single 200 J synchronized shock was delivered. The patient converted into sinus rhythm with frequent PACs that slowly evolved into sinus rhythm. The patient awoke she had no neurologic deficits. She will be discharged to home to continue her current medical therapy and will follow-up in the [facility] office in 1 week for an EKG. Assessment & Plan Assessment/Plan (1) New onset atrial fibrillation: PLAN: The patient's atrial fibrillation was diagnosed when she was admitted with new onset heart failure with reduced ejection fraction. She has tolerated medical regiment and oral anticoagulation with Eliquis for over a month. The patient was successfully cardioverted to normal sinus rhythm today. (2) Heart failure with reduced ejection fraction: PLAN: Patient has been difficult to titrate her guideline directed medical therapy due to hypotension. She is tolerating her current medical therapy and after cardioversion her blood pressure was 130/60. The patient will be continued on her current meds she will follow-up in the office in 1 week for an EKG. At that time blood pressures will be evaluated and we will attempt to increase her losartan. The patient she had to have a complete metabolic panel done in 1 week she does have a history of elevated LFTs felt to be related to hepatic congestion when she was originally hospitalized. Would also like to check a BNP at that time for baseline. PLAN: Plan 1. EKG with blood pressure and heart rate in the [facility] office in 1 week. 2. Complete metabolic panel and BNP in 1 week when she is in the office. 3. Will titrate guideline directed medical therapy as blood pressure and heart rate will tolerate. 4. Would plan on limited echocardiogram to reevaluate LV function in the next 6 to 12 weeks. 5. Follow-up with Dr. Falcon in the office in 4 weeks. Procedures Coronary Therapeutic CF Procedures [id number]: [id number] Cardioversion electric ext
--- NOTE | 2024-08-12 12:51 | PCM.OP.PRO ---
Procedure Report Date of Procedure: 08/12/24 CONSCIOUS SEDATION REPORT DATE OF SERVICE: August 12, 2024 BRIEF HISTORY OF PRESENT ILLNESS: The patient is a 73-year-old female who presented to [facility] for elective outpatient cardioversion due to underlying atrial fibrillation. The patient has never previously undergone a cardioversion. She denied any prior anesthetic complications. The patient is systemically anticoagulated on Eliquis. Her last surface echocardiogram demonstrated an ejection fraction of approximately 20%. PHYSICAL EXAMINATION: VITAL SIGNS: Reviewed and were acceptable. GENERAL: The patient is a female, in no apparent distress, speaking in full sentences. HEENT: Normocephalic, atraumatic. Mucous membranes are moist and pink. Good mouth opening noted. Trachea is midline. CHEST: S1, S2 irregularly irregular. No murmurs, rubs or gallops were noted. LUNGS: Clear to auscultation bilaterally without appreciable wheezes, rales or rhonchi. ABDOMEN: Soft, nontender, nondistended. Positive bowel sounds. EXTREMITIES: There is no clubbing, cyanosis or edema. ASA Class: II DESCRIPTION OF PROCEDURE: After confirmation of informed consent, the patient's anesthesia plan was reviewed in detail. Etomidate was chosen. Risks and benefits were reviewed and the patient agreed to proceed. At 1227, the patient was given 6 mg of etomidate. The patient achieved an appropriate level of sedation and was given a 200 joule synchronized cardioversion by Dr. Falcon at the bedside. This was successful in achieving normal sinus rhythm. The patient was monitored until 1240, at which time she reached her baseline mental status and function. The patient tolerated the procedure well. COMPLICATIONS: None ESTIMATED BLOOD LOSS: None RECOMMENDATIONS: Okay to recover in usual fashion. Procedures Pulmonary Pulmonary Procedures /Diagnostic Testin Con Sedation
== END 2024-08-12 13:30 | disposition home or self-care (01) ==
PROVIDERS: PCP Family Medicine; Referring Provider Internal Medicine Cardiovascular Disease; Visit Provider Internal Medicine Cardiovascular Disease
DX: I48.91 Unspecified atrial fibrillation (principal); I50.20 Unspecified systolic (congestive) heart failure; R06.09 Other forms of dyspnea; Z79.01 Long term (current) use of anticoagulants; E78.5 Hyperlipidemia, unspecified
CPT/HCPCS: 92960; 93005; J7040

== ENCOUNTER → 2024-08-19 | Outpatient (CLI) | payer MEDICARE, OTHER, SELFPAY ==
[2024-08-19 13:08] LABS: AST(SGOT) 55 U/L (15-37); Alanine Aminotransfer ALT/SGPT 60 U/L (13-56); Albumin, Serum 3.8 g/dL (3.2-5.0); Alkaline Phosphatase 110 U/L (45-117); Anion Gap 4 (5-15); BUN 21 mg/dL (7-18); BUN/Creat Ratio 19.3 RATIO (10-20); Calcium,Total 9.7 mg/dL (8.5-10.1); Chloride 106 mmol/L (98-107); Creatinine, Serum 1.09 mg/dL (0.55-1.02); EST Glomerular Filtration Rate 52 mL/min (>60); Est Glom Filt Rate - Afr Amer 63 mL/min (>60); Globulin 3.8 g/dL (2.2-4.2); Glucose 89 mg/dL (74-106); Potassium 5.4 mmol/L (3.5-5.1); Protein, Total 7.6 g/dL (6.4-8.2); Sodium Level 136 mmol/L (136-145)
== END | disposition home or self-care (01) ==
LOC: LAB 11:52
PROVIDERS: PCP Family Medicine; Referring Provider Internal Medicine Cardiovascular Disease; Visit Provider Internal Medicine Cardiovascular Disease
DX: I48.91 Unspecified atrial fibrillation (principal); I50.9 Heart failure, unspecified; Z92.89 Personal history of other medical treatment
CPT/HCPCS: 36415; 80053; 83880

== ENCOUNTER → 2024-08-23 | Outpatient (CLI) | payer MEDICARE, OTHER, SELFPAY ==
--- NOTE | 2024-08-23 13:24 | BI_ITS ---
MAMMOGRAPHY - BILATERAL SCREENING REASON FOR EXAM: Female, 73 years old. Routine annual screening examination. PERTINENT HISTORY: Mother with breast cancer. Aunts with breast cancer. TECHNIQUE: Digital bilateral breast grant (3D mammographic acquisition) in the CC and MLO projections. 2-D mediolateral oblique (MLO) and craniocaudad (CC) views of both breasts were obtained. CAD: Full Field Digital Mammography with Computer Added Detection was performed. COMPARISON: Comparison is made with prior study dated August 08, 2023 and July 17, 2022. FINDINGS: Breast Composition: The breasts are extremely dense, which lowers the sensitivity of mammography. There are no dominant masses or suspicious calcifications. No other significant abnormalities are identified. There has been no significant change since the prior study. BI/SCRN MAMM (CAD)W/GRANT BILAT IMPRESSION: Stable bilateral screening mammogram. Yearly follow-up mammogram recommended. (A) ASSESSMENT CATEGORY: BIRADS Category 1: Negative. A letter regarding these results will be sent to the patient by the facility within 30 days. Approximately 10% of breast cancers are not detected by mammography. A normal mammogram should not delay biopsy of a clinically suspicious abnormality. [id number] Electronically Signed: Laron Olivares MD at 14:19 EDT ,
== END | disposition home or self-care (01) ==
LOC: OPBI 13:22
PROVIDERS: PCP Family Medicine; Referring Provider Family Medicine; Visit Provider Family Medicine
DX: Z12.31 Encounter for screening mammogram for malignant neoplasm of breast (principal)
CPT/HCPCS: 77063; 77067

== ENCOUNTER → 2024-09-07 | Outpatient (CLI) | payer MEDICARE, OTHER, SELFPAY ==
[2024-09-07 16:08] LABS: Hematocrit 41.8 % (37-47); Hemoglobin 13.4 g/dL (12.0-15.0); Mean Corp Hgb Conc 32.1 g/dL (32-36); Mean Corpuscular Hgb 29.6 pg (27.0-32.0); Mean Corpuscular Volume 92.5 fL (81-99); Mean Platelet Vol. 10.1 fl (6.2-12.0); Platelet Count 210 K/mm3 (150-450); RBC Distribution Width CV 13.7 % (11.6-14.6); RBC Distribution Width SD 46.4 fl (35.1-43.9); Red Blood Count 4.52 M/mm3 (4.2-5.4); White Blood Count 5.7 K/mm3 (4.4-11.0)
[2024-09-07 16:35] LABS: Anion Gap 6 (5-15); BUN 23 mg/dL (7-18); BUN/Creat Ratio 17.6 RATIO (10-20); Calcium,Total 9.1 mg/dL (8.5-10.1); Chloride 104 mmol/L (98-107); Creatinine, Serum 1.31 mg/dL (0.55-1.02); EST Glomerular Filtration Rate 42 mL/min (>60); Est Glom Filt Rate - Afr Amer 51 mL/min (>60); Glucose 120 mg/dL (74-106); Potassium 3.7 mmol/L (3.5-5.1); Sodium Level 139 mmol/L (136-145)
[2024-09-07 16:43] LABS: BNP,B-Type NATRIURETIC PEPTIDE 370.2 pg/mL (0-100)
== END | disposition home or self-care (01) ==
LOC: LAB 15:36
PROVIDERS: PCP Family Medicine; Referring Provider Internal Medicine Cardiovascular Disease; Visit Provider Internal Medicine Cardiovascular Disease
DX: I50.20 Unspecified systolic (congestive) heart failure (principal)
CPT/HCPCS: 36415; 80048; 83880; 85027

== ENCOUNTER → 2024-10-07 | Outpatient (CLI) | payer MEDICARE, OTHER, SELFPAY | END | disposition home or self-care (01) | LOC: PSN 13:49 | PROVIDERS: PCP Family Medicine; Referring Provider Internal Medicine Cardiovascular Disease; Visit Provider Internal Medicine Cardiovascular Disease | DX: I48.0 Paroxysmal atrial fibrillation (principal) | CPT/HCPCS: 93225; 93226 ==

== ENCOUNTER 2024-10-31 22:19 | Emergency (ER) | payer MEDICARE, OTHER, SELFPAY ==
[2024-10-31 22:20] VITALS: BP 157/115; PULSE 80; RESP 18; TEMP 36.3; O2SAT 100; BMI 23.2
--- NOTE | 2024-10-31 22:48 | EKG12_ITS ---
Test Reason : DYSRHYTHMIA Blood Pressure : */* mmHG Vent. Rate : 83 BPM Atrial Rate : 30 BPM P-R Int : 198 ms QRS Dur : 124 ms QT Int : 398 ms P-R-T Axes : 32 6 88 degrees QTcB Int : 467 ms Critical Test Result: Arrhythmia Normal sinus rhythm with frequent Premature ventricular complexes Non-specific intra-ventricular conduction delay Nonspecific ST and T wave abnormality Abnormal ECG Confirmed by Alonso Falcon ([id number]), supervising film or videotape editor ROBBIE KAT ([id number]) on 11/01/2024 11:49:56 AM Referred By: Adelina Corrales Confirmed By: Alonso Falcon
--- NOTE | 2024-10-31 22:49 | EX.ED.DYSGE1 ---
HPI History of Present Illness Chief Complaint: Fatigue Detail of Chief Complaint: Lightheadedness and mild shortness of breath Informant: patient Narrative Narrative: Patient presents to the emergency department complaint of lightheadedness. She states she had an episode while in [employer] and sitting this morning it lasted about a minute. Symptoms then resolved and she felt fine the afternoon. She went for a walk. Denies any chest pain. She had another episode while playing cards around 9 PM where she felt lightheaded that lasted about a minute or 2. Patient tells me that she has history of CHF and had an echo in July that showed an ejection fraction of 20%. Also history of A-fib several months ago that required cardioversion. She is currently on Eliquis. She started carvedilol about a week and a half ago. Patient had her blood pressure checked by her at home this evening and was unremarkable. He checked her heart rate with a pulse ox and she tells me that was all over the place with heart rate as low as in the 30s and as high as in the 70s. She has history of ectopy. [facility] Medical History Osteopenia Hyperlipidemia Home Medications ?Medication ?Instructions ?Recorded ?Last Taken ?Type simvastatin 20 mg tablet 20 mg PO DAILY cholesterol 09/04/21 Unknown History flaxseed oil See Rx Instructions .Route 07/03/24 07/03/24 History .COMPLEX supplement apixaban 5 mg tablet (Eliquis) 5 mg PO BID #60 tabs 07/21/24 Unknown Rx losartan 25 mg tablet 25 mg PO DAILY #30 tabs 07/21/24 Unknown Rx spironolactone 25 mg tablet 12.5 mg (1/2 x 25 mg) PO DAILY #30 08/23/24 Unknown Rx tabs carvedilol 3.125 mg tablet 3.125 mg PO BID #60 tabs 10/22/24 Unknown Rx Allergy/AdvReac Type Severity Reaction Status Date / Time metoprolol AdvReac Intermediate Headache. Verified 10/31/24 22:19 Family History Mother Breast cancer Congestive heart failure Osteoporosis Grandmother Diabetes Osteoporosis Surgical History History of cardioversion (08/12/24) H/O dilation and curettage History of hysterectomy Social History household members: spouse and children current occupational status: retired history of recent travel: No Smoking Status: Never smoker alcohol intake: never substance use type: does not use caffeine: No what type of physical activity do you participate in: walking, yoga and weight training frequency: 3-4 times per week seatbelt use: always do you feel safe at home: Yes additional social history: - Dylan ROS ROS ED Review of Systems ROS Unobtainable: other Constitutional Constitutional ED: Reports lethargy; Denies chills, fever(s), sweats or weight loss Eyes Eyes: Denies blurry vision, change in vision or diplopia ENT ENT ED: Denies rhinorrhea or sore throat Cardiovascular Cardiovascular: Denies chest pain, orthopnea or racing heartbeat Respiratory/Chest Respiratory/Chest: Reports dyspnea; Denies cough, dyspnea on exertion, orthopnea or sputum Gastrointestinal Gastrointestinal: Denies abdominal pain, diarrhea, nausea or vomiting Genitourinary Genitourinary ED: Denies dysuria, hematuria or urinary frequency Musculoskeletal Musculoskeletal: Denies arthralgias, back pain, myalgias or neck pain Integumentary Denies abscess, Abrasions or rash Neurologic Neurologic: Reports other Details: Lightheadedness ; Denies headache(s) or weakness Psychiatric Psychiatric: Denies anxiety, depression or suicidal thoughts Endocrine Endocrinology: Denies polydipsia, polyphagia or polyuria Hematologic/Lymphatic Hematologic/Lymphatic: Denies easy bleeding, easy bruising or lymphadenopathy Allergic/Immunologic Allergic/Immunologic ED: Denies mouth swelling, tongue swelling or urticaria EXAM Physical Exam Const Vital Signs: 10/31/24 22:20 10/31/24 22:30 10/31/24 23:25 Temperature 97.3 F L Temperature Source Temporal Pulse Rate 80 Pulse Rate [Lying] 74 Pulse Rate [Sitting (for 1 minute prior to obtaining)] 71 Pulse Rate [Standing (for 1 minute prior to obtaining)] 83 Respiratory Rate 18 Respiratory Effort Normal Non-Labored Respiratory Pattern Normal Blood Pressure 157/115 H Blood Pressure [Lying] 141/71 H Blood Pressure [Sitting (for 1 minute prior to obtaining)] 143/80 H Blood Pressure [Standing (for 1 minute prior to obtaining)] 128/82 H Blood Pressure Mean 129 Blood Pressure Mean [Lying] 94 Blood Pressure Mean [Sitting (for 1 minute prior to obtaining)] 101 Blood Pressure Mean [Standing (for 1 minute prior to obtaining)] 97 Pulse Ox 100 Oxygen Delivery Method Room Air Positive well nourished and well developed General Appearance ED: well developed and NAD HEENT Reports TM's clear and moist mucous membranes normocephalic and atraumatic; Negative for trauma or tenderness Tympanic Membrane ED: Yes TM's clear Eyes PERRL and EOMs intact bilaterally General Eye ED: Negative for pale conjunctiva or scleral icterus Neck no lymphadenopathy, supple and no JVD General: Negative for tenderness Chest Wall inspection of chest normal and palpation of chest normal Chest: Negative for tenderness Resp normal respiratory effort and clear to auscultation bilaterally Effort and Inspection: Negative for respiratory distress or pain with movement Auscultation: Negative for rhonchi, wheezes or diminished lung sounds Cardio regular rate, regular rhythm, S1 normal heart sound, S2 normal heart sound and no murmurs Rhythm: abnormal rhythm ectopic beats Peripheral Pulses: pulses 2+ throughout GI normal to inspection, nondistended, normoactive bowel sounds, soft to palpation, non-tender, non-distended and no masses Back/Spine no CVA tenderness and no thoracic nor lumbar tenderness Extremity normal to inspection General Extremety ED: Negative for edema General Extremity: Negative for edema Neuro oriented x3, CN's II-XII intact bilaterally, no sensory deficits noted and gait normal Sensorium / Orientation: awake, alert, oriented to person, oriented to place and oriented to time Motor Exam: strength 5/5 throughout and strength abnormal Psych mental status grossly normal Skin no rashes or lesions noted and no wounds MDM MDM MDM Narrative Medical decision making narrative: Patient presents with a complaint of lightheadedness and mild shortness of breath. He has history of CHF. Also noted at home abnormality in her heart rate running into the 30s at times. did not do a manual check. She apparently wore a Holter monitor 3 weeks ago to evaluate for A-fib and was noted to have PVCs but no evidence of A-fib. EKG obtained on arrival showed sinus rhythm with rate of 83 bpm with frequent PVCs and nonspecific ST changes. CBC with differential showed white count 5.8 with hemoglobin 13.5 and platelet count of 205. Chemistries unremarkable. BNP was 336 and troponin was 17. Urinalysis was normal. Orthostatic vital signs were negative. At this point etiology of her lightheadedness unclear. She clinically looks well and is currently asymptomatic. Will discharge to home and advised to follow-up with primary care physician and cardiology within the next 3 to 5 days. Patient to return the emergency department if increasing shortness of breath, syncope, chest pain, or condition should worsen anyway. Lab Data Attestation: I reviewed the patient's lab results. Labs: Laboratory Results - last 24 hr 10/31/24 10/31/24 22:38 23:05 WBC 5.8 RBC 4.44 Hgb 13.5 Hct 41.0 MCV 92.3 MCH 30.4 MCHC 32.9 RDW Std Deviation 46.6 H RDW Coeff of Sandi 13.6 Plt Count 205 MPV 10.3 Immature Gran % (Auto) 0.200 Neut % (Auto) 51.3 Lymph % (Auto) 37.0 [place] % (Auto) 7.7 Eos % (Auto) 3.1 Baso % (Auto) 0.7 Absolute Neuts (auto) 3.0 Absolute Lymphs (auto) 2.16 Nucleated RBC % 0 Sodium 138 Potassium 4.1 Chloride 102 Carbon Dioxide 29.0 Anion Gap 7 BUN 25 H Creatinine 1.07 H Estim Creat Clear Calc 42.76 Est GFR (MDRD) Af Amer 65 Est GFR (MDRD) Non-Af 53 L BUN/Creatinine Ratio 23.4 H Glucose 114 H Calcium 9.1 Troponin I High Sens 17 B-Natriuretic Peptide 336.9 H Urine Color Yellow Urine Clarity Clear Urine pH 7.0 Ur Specific [place] 1.005 Urine Protein Negative Urine Glucose (UA) Normal Urine Ketones Negative Urine Occult Blood 25 H Urine Nitrite Negative Urine Bilirubin Negative Urine Urobilinogen Normal Ur Leukocyte Esterase Negative Urine RBC 0-5 SEEN Urine WBC 0 SEEN Ur Squamous Epith Cells 0 SEEN Urine Bacteria 0 SEEN Urine Mucus 0 SEEN Radiography Diagnostic Testing: Clinical Impression(s) from Imaging Studies Chest X-Ray 10/31/24 23:10 IMPRESSION: No radiographic evidence of acute cardiopulmonary disease. Electronically Signed: Tamika Ellsworth MD at 23:21 EST Reading Location ID and State: [facility] / [place] Tel , Service support , 1 view chest x-ray obtained interpreted by myself as no evidence of infiltrate or pneumothorax or acute disease process. Radiology in agreement. EKG Initial EKG: Attestation: I personally reviewed and interpreted this EKG as follows: Comments: Sinus rhythm with rate of 83 bpm with frequent PVCs and nonspecific ST changes Discharge Plan Triage Chief Complaint: Fatigue ED Provider: Adelina Corrales Dx/Rx/DC Orders Clinical Impression: Frequent PVCs, Dyspnea, History of chronic CHF, Dizziness Instructions: PVCs, ED Dizziness, Uncertain Cause, ED Dyspnea Prescriptions: No Action simvastatin 20 mg tablet 20 mg PO DAILY flaxseed oil See Rx Instructions .ROUTE .COMPLEX Rx Instructions: 1000 mg once a day daily; Eliquis 5 mg tablet 5 mg PO BID Qty: 60 11RF losartan 25 mg tablet 25 mg PO DAILY Qty: 30 11RF spironolactone 25 mg tablet 12.5 mg PO DAILY Qty: 30 11RF carvedilol 3.125 mg tablet 3.125 mg PO BID Qty: 60 11RF Rx Instructions: must administer with a meal/food Primary Care Provider: Hortensia Wesley Referrals: Hortensia Wesley DO [Primary Care Provider] - 3-5 Days Activity Restrictions/Additional Instructions: See cardiology as needed Print Language: Eritrean Disposition Disposition: Home, Self Care
[2024-10-31 22:55] LABS: Absolute Lymphocyte Count 2.16 X10^3/uL (0.83-4.51); Basophil# 0.04 X10^3/uL; Basophil% 0.7 % (0-1); Eosinophil# 0.18 X10^3/uL; Eosinophils% 3.1 % (0-5); Hemoglobin 13.5 g/dL (12.0-15.0); Lymphocyte # 2.16 X10^3/ul (0.83-4.51); Mean Corp Hgb Conc 32.9 g/dL (32-36); Mean Corpuscular Hgb 30.4 pg (27.0-32.0); Mean Corpuscular Volume 92.3 fL (81-99); Mean Platelet Vol. 10.3 fl (6.2-12.0); Monocyte# 0.45 X10^3/uL; Monocyte% 7.7 % (0-10); NRBC Flagged by Analyzer 0 % (0-5); Neutrophil # 2.99 X10^3/uL (2.7-7.7); Neutrophil % 51.3 % (47-70); Platelet Count 205 K/mm3 (150-450); RBC Distribution Width CV 13.6 % (11.6-14.6); RBC Distribution Width SD 46.6 fl (35.1-43.9); Red Blood Count 4.44 M/mm3 (4.2-5.4); White Blood Count 5.8 K/mm3 (4.4-11.0)
[2024-10-31 23:10] LABS: Bacteria 0 SEEN /hpf (None Seen); Mucous, Urine 0 SEEN /hpf (<or=2+); Squamous Epithelial Cells - UA 0 SEEN /hpf (5-10); White Blood Cells 0 SEEN /hpf (0-5)
--- NOTE | 2024-10-31 23:10 | RAD_ITS ---
INDICATION: dyspnea EXAMINATION/TECHNIQUE: X-RAY - XR Chest 1 View COMPARISON: No relevant prior comparison study available FINDINGS: LINES/DEVICES: None. LUNGS: No consolidation, edema or effusion. No pneumothorax. MEDIASTINUM AND CARDIOVASCULAR STRUCTURES: Cardiac silhouette not enlarged. Central airways and mediastinal contour are unremarkable. BONES AND SOFT TISSUES: Unremarkable. RAD/Chest 1 View (Portable) IMPRESSION: No radiographic evidence of acute cardiopulmonary disease. Electronically Signed: Tamika Ellsworth MD at 23:21 EST ,
[2024-10-31 23:13] LABS: Anion Gap 7 (5-15); BUN 25 mg/dL (7-18); BUN/Creat Ratio 23.4 RATIO (10-20); Calcium,Total 9.1 mg/dL (8.5-10.1); Chloride 102 mmol/L (98-107); Creatinine, Serum 1.07 mg/dL (0.55-1.02); EST Glomerular Filtration Rate 53 mL/min (>60); Est Glom Filt Rate - Afr Amer 65 mL/min (>60); Estimated Creatinine Clearance 42.76 ml/min; Glucose 114 mg/dL (74-106); Potassium 4.1 mmol/L (3.5-5.1); Sodium Level 138 mmol/L (136-145); Troponin-I HS 17 pg/mL (3.0-54.0)
[2024-10-31 23:14] LABS: Color, Urine Yellow (Yellow); Glucose, Dipstick Normal (Normal); Ketone-Dipstick Negative (Negative); Leukocyte Esterase-Dipstick Negative /ul (Negative); Nitrite-Dipstick Negative (Negative); Occult Blood-Urine 25 /ul (Negative); Protein-Dipstick Negative (Negative); Specific Gravity, Urine 1.005 (1.002-1.030); Urine Bilirubin Dipstick Negative (Negative); Urine Clarity Clear (Clear); Urine Urobilinogen Normal (Normal)
[2024-10-31 23:21] LABS: Red Blood Cells-Urine 0-5 SEEN /hpf (0-5)
[2024-10-31 23:25] VITALS: BP 128/82; BP 141/71; BP 143/80; PULSE 71; PULSE 74; PULSE 83
[2024-10-31 23:30] LABS: BNP,B-Type NATRIURETIC PEPTIDE 336.9 pg/mL (0-100)
[2024-10-31 23:45] VITALS: BP 129/77; PULSE 75; RESP 18; TEMP 36.5; O2SAT 95
== END 2024-10-31 23:46 | disposition home or self-care (01) ==
PROVIDERS: Emergency Provider Emergency Medicine; PCP Family Medicine; Referring Provider Emergency Medicine; Visit Provider Emergency Medicine
DX: I49.3 Ventricular premature depolarization (principal); I50.9 Heart failure, unspecified; I48.91 Unspecified atrial fibrillation; R06.00 Dyspnea, unspecified; E78.5 Hyperlipidemia, unspecified; R42 Dizziness and giddiness; Z79.01 Long term (current) use of anticoagulants; Z79.899 Other long term (current) drug therapy
CPT/HCPCS: 71045; 80048; 81001; 83880; 84484; 85025; 93005; 99285; A4216

== ENCOUNTER → 2024-11-10 | Outpatient (CLI) | payer MEDICARE, OTHER, SELFPAY ==
--- NOTE | 2024-11-10 13:44 | ECHOD_ITS ---
Version 2 Reason For Study: CONGESTIVE HEART FAILURE Procedure This was a 2D Doppler, Color Flow transthoracic echocardiogram. Exam performed in department. Left Ventricle Moderately dilated left ventricle. The left ventricular ejection fraction is 30 %. No regional wall motion abnormalities noted. Right Ventricle Normal RV size. Normal systolic function. Mitral Valve Bileaflet diffuse mitral valve thickening. Moderate (2+) eccentric mitral valve insufficiency. Tricuspid Valve Normal tricuspid valve. Mild (1+) tricuspid valve insufficiency. Pulmonary artery systolic pressure is 30 mmHg. Aortic Valve Trisinus/trileaflet aortic valve. Pulmonic Valve Normal pulmonic valve. Great Vessels Normal aortic root. The pulmonary artery is normal size. Normal inferior vena cava. Pericardium/Pleural No pericardial effusion. MMode/2D Measurements & Calculations LVIDd: 6.3 cm IVSd: 1.1 cm LVOT diam: 2.0 cm LVIDs: 4.5 cm LVPWd: 1.0 cm LVOT area: 3.1 cm2 RVDd: 2.8 cm FS: 28.9 % asc Aorta Diam: 3.1 cm LAV(MOD-bp): 108.6 ml LVAd ap4: 34.7 cm2 LAV(MOD-bp) Indexed: 65.5 ml/m2 LVLd ap4: 7.4 cm LAV(MOD-sp2): 115.4 ml EDV(MOD-sp4): 136.4 ml LAV(MOD-sp4): 96.6 ml EDV(sp4-el): 137.7 ml LVAs ap4: 27.3 cm2 LVLs ap4: 6.7 cm ESV(MOD-sp4): 92.0 ml ESV(sp4-el): 94.2 ml EF(MOD-sp4): 32.5 % EF(sp4-el): 31.6 % SV(MOD-sp4): 44.4 ml SV(MOD-sp2): 40.5 ml LVAd ap2: 33.1 cm2 LVLd ap2: 7.7 cm SI(MOD-sp4): 26.8 ml/m2 SI(MOD-sp2): 24.4 ml/m2 EDV(MOD-sp2): 116.2 ml EDV(sp2-el): 121.0 ml LVAs ap2: 25.3 cm2 LVLs ap2: 7.3 cm ESV(MOD-sp2): 75.7 ml ESV(sp2-el): 74.4 ml EF(MOD-sp2): 34.9 % SV(sp4-el): 43.5 ml Ao sinus diam: 2.[address] Junction: 2.3 cm LA A4 area: 28.1 cm2 LA dimension(2D): 5.2 cm RA A4 area: 11.4 cm2 TAPSE: 1.8 cm Time Measurements MV dec time: 0.15 sec Doppler Measurements & Calculations MV E max kerwin: 64.5 cm/sec Lat A' kerwin: 9.0 cm/sec Med Peak E' Kerwin: 5.9 cm/sec MV A max kerwin: 90.2 cm/sec E/E' med: 10.9 MV E/A: 0.72 Ao V2 max: 171.0 cm/sec LV V1 max: 142.2 cm/sec MV dec slope: 425.6 cm/sec2 Ao max P.8 mmHg LV V1 max P.1 mmHg Ao V2 mean: 120.5 cm/sec LV V1 mean P.5 mmHg Ao mean P.4 mmHg LV V1 mean: 100.3 cm/sec Ao V2 VTI: 31.7 cm LV V1 VTI: 25.6 cm AV (velocity ratio): 0.81 SAGAR(I,D): 2.5 cm2 SAGAR(V,D): 2.6 cm2 SV(LVOT): 79.8 ml PA V2 max: 109.1 cm/sec TR max kerwin: 263.9 cm/sec TR max P.9 mmHg ECHO/Echo Complete Interpretation Summary The left ventricular ejection fraction is 30 %. Bileaflet diffuse mitral valve thickening. Moderate (2+) eccentric mitral valve insufficiency. Pulmonary artery systolic pressure is 30 mmHg. Moderately dilated left ventricle. Compared to previous study, the left ventricular systolic function has improved .. Ordering Physician: Alonso Falcon Referring Physician: Hortensia Wesley Performed By: Esther Johansen RDCS
== END | disposition home or self-care (01) ==
LOC: CVS 13:44
PROVIDERS: PCP Family Medicine; Referring Provider Internal Medicine Cardiovascular Disease; Visit Provider Internal Medicine Cardiovascular Disease
DX: I50.20 Unspecified systolic (congestive) heart failure (principal); I48.91 Unspecified atrial fibrillation; R94.31 Abnormal electrocardiogram [ECG] [EKG]
CPT/HCPCS: 93306

== ENCOUNTER → 2025-02-28 | Outpatient (CLI) | payer MEDICARE, OTHER, SELFPAY ==
--- NOTE | 2025-02-28 09:52 | ECHOL_ITS ---
Reason For Study : CHF Procedure This was a limited 2D transthoracic echocardiogram. Myocardial strain analysis was performed in this exam to aid in the assessment of cardiac function. Exam performed in department. Left Ventricle Severely dilated left ventricle. The left ventricular ejection fraction is 30 %. There is severe global hypokinesis of the left ventricle. Infero-Basal: Aneurysmal. Posterior-Basal: Akinetic. Right Ventricle Normal RV size. Normal systolic function. Atria The left atrium is severely enlarged. Normal right atrium. Mitral Valve Bileaflet diffuse mitral valve thickening. Mild mitral valve prolapse. Tricuspid Valve Normal tricuspid valve. Aortic Valve Trisinus/trileaflet aortic valve. Pulmonic Valve Normal pulmonic valve. Great Vessels Normal aortic root. The pulmonary artery is normal size. Inferior vena cava collapse with respiration. Pericardium/Pleural No pericardial effusion. MMode/2D Measurements & Calculations LVIDd: 7.0 cm IVSd: 1.0 cm Ao root diam: 2.5 cm LVIDs: 5.0 cm LVPWd: 1.0 cm RVDd: 2.5 cm FS: 28.2 % LAV(MOD-bp): 131.0 ml LVAd ap4: 37.7 cm2 LVAd ap2: 36.9 cm2 LAV(MOD-bp) Indexed: 78.0 ml/m2 LVLd ap4: 8.1 cm LVLd ap2: 8.0 cm LAV(MOD-sp2): 130.0 ml EDV(MOD-sp4): 146.1 ml EDV(MOD-sp2): 142.1 ml LAV(MOD-sp4): 118.3 ml EDV(sp4-el): 148.3 ml EDV(sp2-el): 145.6 ml LVAs ap4: 29.0 cm2 LVAs ap2: 29.0 cm2 LVLs ap4: 7.1 cm LVLs ap2: 7.2 cm ESV(MOD-sp4): 99.8 ml ESV(MOD-sp2): 95.0 ml ESV(sp4-el): 101.1 ml ESV(sp2-el): 99.8 ml EF(MOD-sp4): 31.7 % EF(MOD-sp2): 33.2 % EF(sp4-el): 31.9 % SV(MOD-sp4): 46.3 ml SV(MOD-sp2): 47.1 ml SV(sp4-el): 47.3 ml SI(MOD-sp4): 27.6 ml/m2 SI(MOD-sp2): 28.1 ml/m2 LA A4 area: 31.2 cm2 LA dimension(2D): 5.1 cm RA A4 area: 8.5 cm2 ECHO/Echo, Limited Study Interpretation Summary The left ventricular ejection fraction is 30 %. Severely dilated left ventricle. Bileaflet diffuse mitral valve thickening. Mild mitral valve prolapse. Infero-Basal: Aneurysmal. Compared to previous study, the left ventricular systolic function is the same. . Ordering Physician: Alonso Falcon Referring Physician: Alonso Falcon Performed By: Poornima Martinez RCS
== END | disposition home or self-care (01) ==
LOC: CVS 09:52
PROVIDERS: PCP Family Medicine; Referring Provider Internal Medicine Cardiovascular Disease; Visit Provider Internal Medicine Cardiovascular Disease
DX: R06.09 Other forms of dyspnea (principal)
CPT/HCPCS: 93308

== ENCOUNTER 2025-03-21 06:53 | Day surgery (SDC) | payer MEDICARE, OTHER, SELFPAY ==
--- NOTE | 2025-03-09 11:08 | PCM.HP.BLA ---
History and Physical Date of Admission: 03/21/25 Stella Peralta is a 74 year old female with a history of heart failure reduced ejection fraction it was 20% earlier. She underwent direct-current cardioversion mid August 2024 that was successful in converting her to sinus rhythm and she has remained in sinus rhythm. She was having some issues with the atenolol that she is on due to side effects and we switched her to Coreg 3.125 mg twice daily. We have continued to try to titrate this upwards. The patient had an echocardiogram done 11/10/2024. That showed that her EF had improved to 30% there were no regional wall motion abnormalities her LV remains moderately dilated. RV was normal in size and function she had 2+ eccentric mitral regurg 1+ tricuspid regurg and her pulmonary artery systolic pressure was estimated at 30 mmHg. The aortic and pulmonary valves were normal pulmonary artery aortic root and inferior vena cava were all normal. There was no pericardial effusion. She had a repeat echocardiogram in January 2025 which demonstrated an EF of 30%. Because her EF has remained the same it is recommended that she undergo a diagnostic heart catheterization. Based upon findings after that we will decide if she just needs a prophylactic ICD for her cardiomyopathy. Medical History PVC (premature ventricular contraction) PAF (paroxysmal atrial fibrillation) Osteopenia Hyperlipidemia Surgical History History of cardioversion (08/12/24) H/O dilation and curettage History of hysterectomy Family History Mother Breast cancer Congestive heart failure Osteoporosis Grandmother Diabetes Osteoporosis Social History household members: spouse and children current occupational status: retired history of recent travel: No Smoking Status: Never smoker alcohol intake: never substance use type: does not use caffeine: No what type of physical activity do you participate in: walking, yoga and weight training frequency: 3-4 times per week seatbelt use: always do you feel safe at home: Yes additional social history: - Dylan ROS Const Const: Negative for fatigue or weakness ENT ENT: Negative for dizziness or balance problems Cardio Chest Pain: No Palpitations: Yes (on 01/09/25 only, none since) Edema: None Muscle aches with walking: None Resp Respiratory: Negative for SOB with activity, SOB at rest or SOB orthopnea\SOB lying down GI GI: Negative nausea, vomiting or heartburn Musc Musc: Negative for muscle weakness or balance problems Neuro Neuro: Negative for dizziness, lightheadedness, near syncope, syncope or weakness Endo Endo: Negative for fatigue Cardiology Exam Const Appearance: cooperative, comfortable and no acute distress Nutritional Appearance: thin Head Head: normal to inspection Eyes General: appearance normal, both eyes and all related structures Neck Neck: normal visual inspection and no JVD Carotids: Negative bruit Chest Chest inspection: normal inspection of the chest Auscultation: Bilateral: Clear to Auscultation Cardio Rate: regular rate Rhythm: regular rhythm and ectopic beats Heart sounds: S1 normal, S2 normal and murmur; Negative rub or gallop Murmur: Grade 1/6, soft, mid systolic and LLSB Neuro General: patient alert and patient oriented x3 Skin Skin: no rashes or lesions noted Extremities Lower Extremity Edema: None: Bilateral Psych Psychological: normal affect Assessment & Plan Assessment/Plan (1) Heart failure with reduced ejection fraction: (2) PAF (paroxysmal atrial fibrillation): (3) PVC (premature ventricular contraction): (4) Hyperlipidemia: PLAN: Plan Patient will proceed with a diagnostic heart catheterization. This will help assess whether or not her cardiomyopathy is ischemic related. If she has normal coronary arteries would then recommend pursuing a prophylactic ICD. Patient will follow-up accordingly in the office.
[2025-03-14 14:40] LABS: Absolute Lymphocyte Count 1.43 X10^3/uL (0.83-4.51); Absolute Neutrophil Count 3.1 X10^3/uL (2.0-7.7); Basophil# 0.03 X10^3/uL; Basophil% 0.6 % (0-1); Eosinophil# 0.14 X10^3/uL; Eosinophils% 2.8 % (0-5); Hemoglobin 13.2 g/dL (12.0-15.0); Lymphocyte # 1.43 X10^3/ul (0.83-4.51); Lymphocyte % 28.3 % (19-41); Mean Corp Hgb Conc 32.2 g/dL (32-36); Mean Corpuscular Hgb 29.9 pg (27.0-32.0); Mean Platelet Vol. 10.2 fl (6.2-12.0); Monocyte# 0.36 X10^3/uL; Monocyte% 7.1 % (0-10); NRBC Flagged by Analyzer 0 % (0-5); Neutrophil # 3.07 X10^3/uL (2.7-7.7); Neutrophil % 60.8 % (47-70); Platelet Count 194 K/mm3 (150-450); RBC Distribution Width SD 44.7 fl (35.1-43.9); Red Blood Count 4.41 M/mm3 (4.2-5.4); White Blood Count 5.1 K/mm3 (4.4-11.0)
[2025-03-14 14:55] LABS: International Normalized Ratio 1.1
[2025-03-14 14:56] LABS: Partial Thromboplast Time 29.9 Seconds (24.1-36.2)
[2025-03-14 17:51] LABS: Anion Gap 10 (5-15); BUN 17 mg/dL (4-19); BUN/Creat Ratio 15.9 RATIO (10-20); Calcium,Total 9.2 mg/dL (7.6-11.0); Carbon Dioxide 28.4 mmol/L (21.0-32.0); Chloride 102 mmol/L (98-108); Creatinine, Serum 1.05 mg/dL (0.70-1.20); EST Glomerular Filtration Rate 56 (>60); Glucose 114 mg/dL (70-99); Potassium 4.3 mmol/L (3.3-5.1); Sodium Level 140 mmol/L (133-145)
[2025-03-18 07:32] VITALS: BMI 22.9
--- NOTE | 2025-03-21 09:06 | CL.D_ITS ---
Patient Name: SAMY THURMAN Study Date: 03/21/2025 Performing: Vinny Ruiz MD Ht: 65 inches 165.1 cm : 1950 Wt: 138.01 lbs 62.6 kg Age: 74 Gender: female BSA: 1.69 PROCEDURE(S) PERFORMED [id number])LHC/COR/LV CLINICAL PROFILE AND INDICATIONS Indications: Cardiomyopathy Heart Failure: None Stress/Imaging Stress/Image Study Performed: No CAD Presentations: Symptom unlikely to be ischemic. 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 DESCRIPTION OF PROCEDURE The patient arrived to the procedure lab. The risks and benefits of the procedure as well as a full description of our services here and current unavailability of surgical backup were fully explained to the patient and/or their significant other prior to the catheterization. The Timeout was completed, verifying the correct patient and procedure. The patient's procedural site was prepped and draped in the usual fashion. Local anesthetic was given subcutaneously to right radial region with Lidocaine 2%. Using a modified Seldinger technique, arterial access was obtained via the right radial artery, a 6Fr sheath was inserted. Left Coronary Artery selective angiography was performed in multiple views using a 5 Fr. 4.0 [place]aver[place] catheter. Right Coronary Artery selective angiography was then performed in multiple views using a 5 Fr. 4.0 [place] catheter. Left Ventriculography was performed in ALBRIGHT projection using a 5 Fr. Pigtail catheter. LV to AO pullback pressures were then recorded.The arterial sheath was pulled and a TR Band was applied for hemostasis w/ 10ml air CORONARY ANGIOGRAPHY DOMINANCE: Right Dominant LEFT HEART ASSESSMENT Left Ventricular Ejection Fraction: by LV Gram 25 % Inferior Basal Dyskinesis - Severe Depressed Left Ventricular systolic function LEFT MAIN: Angiographically normal LEFT ANTERIOR DESCENDING ARTERY: No significant disease noted CIRCUMFLEX ARTERY: Angiographically normal RIGHT CORONARY ARTERY: Angiographically normal VALVE FINDINGS: Mitral Valve Prolapse Mild COMPLICATIONS No Complications PROCEDURE MEDICATIONS Versed 1 mg IV Fentanyl 50 mcg IV Aspirin (325mg) 1 Tabs PO @ 03/21/2025 07:16:59 Heparin given IA 03/21/2025 08:00:03 SUMMARY OF HEMODYNAMIC DATA Time AIR REST ECG 07:13:42 AO 152/82 (108) SA 08:05:41 LV 151/8, 12 08:10:08 LV 148/7, 12 08:10:14 LV 136/13, 14 08:11:21 LV 143/12, 14 08:11:28 LV 158/10, 22 08:11:40 LVp 160/10, 16 08:11:46 AOp 156/79 (108) 08:11:51 09:04:11 Signed By Vinny Ruiz MD On 03/21/2025 09:05:32 Vinny Ruiz MD
== END 2025-03-21 10:45 | disposition home or self-care (01) ==
PROVIDERS: Physician Assistant Medical; PCP Family Medicine; Referring Provider Internal Medicine Cardiovascular Disease; Visit Provider Internal Medicine Cardiovascular Disease
DX: I50.22 Chronic systolic (congestive) heart failure (principal); I48.0 Paroxysmal atrial fibrillation; I42.0 Dilated cardiomyopathy; I49.3 Ventricular premature depolarization; E78.5 Hyperlipidemia, unspecified; I34.1 Nonrheumatic mitral (valve) prolapse
CPT/HCPCS: 36415; 80048; 85025; 85610; 85730; 93458; 99152; 99153; Q9967; C1769; C1894

== ENCOUNTER → 2025-03-30 | Outpatient (CLI) | payer MEDICARE, OTHER, SELFPAY ==
--- NOTE | 2025-03-30 12:47 | ADUUE_ITS ---
Reason For Study Reason For Study: Right radial cath site swelling and pain RIGHT Radial artery mid, 0.24 x 0.25 cm, 49.3 cm/sec. Radial artery distal, 0.25 x 0.27 cm, 35.8 cm/sec. Ulnar artery distal, 0.19 x 0.20 cm, 62.9 cm/sec. Radial V, Ulnar V and Cephalic V are compressible. No pseudoaneurysm or AVM noted. Preliminary report given to Sujey GALLEGO. /US Art Duplex Unilat UP Extrem Interpretation Summary Patent right upper extremity vessels with no pseudoaneurysm or fistula identifi ed. Ordering Physician: Dany Granados Referring Physician: Hortensia Wesley Performed By: Niesha Paris RVT
== END | disposition home or self-care (01) ==
LOC: CVS 12:47
PROVIDERS: PCP Family Medicine; Referring Provider Nurse Practitioner Family; Visit Provider Nurse Practitioner Family
DX: I74.2 Embolism and thrombosis of arteries of the upper extremities (principal)
CPT/HCPCS: 93931

== ENCOUNTER → 2025-05-18 | Outpatient (CLI) | payer MEDICARE, OTHER, SELFPAY ==
--- OUTSIDE RECORDS SUMMARY | 2025-05-18 08:08 | XMS RPT_ITS | CCD ---
Author Organization [facility] Care Team Providers Care Jet Operator Name Role Phone Hossein Henderson Unavailable Unavailable MARYJANE CARTER, DR HORTENSIA Damico Primary Care Physician MARYJANE CARTER, DR HORTENSIA Damico Primary Care Physician MARYJANE CARTER, DR HORTENSIA Damico Primary Care Unavailable MALYS DO, DR HORTENSIA Damico Attending Unavailable MALYS DO, DR HORTENSIA Damico Attending Unavailable JASONYS , DR HORTENSIA Damico Primary Care Unavailable Maryjane CARTER, Dr. Bazan Primary Care Provider [phone] Dr. Alonso Falcon MD Attending Provider Dr. Alonso Falcon MD Referring Provider Joseph QUIROGA, Dr. Casillas Attending Provider [phone] Maryjane CARTER, Dr. Bazan Referring Provider Supriya Chin Attending Provider [phone] Maryjane CARTER, Dr. Bazan Primary Care Provider [phone] Maryjane CARTER, Dr. Bazan Referring Provider [phone] Alonso Falcon MD Attending Provider Dr. Alonso Falcon MD Referring Provider Dr. Vinny Ruiz MD Attending Provider [phone] Dr. Vinny Ruzi MD Other Provider [phone] Joseph QUIROGA, Dr. Casillas Referring Provider [phone] LESLI FRENCH Attending Unavailable MARYJANE CARTER, DR HORTENSIA Damico Primary Care Unavailable JASONYS , DR HORTENSIA Damico Attending Unavailable JASONYS , DR HORTENSIA Damico Primary Care Unavailable Maryjane CARTER, Dr. Bazan Primary Care Provider Maryjane DO, Dr. Bazan Referring Provider [phone] Supriya Chin Attending Provider [phone] Roof MACHINE FIXER-C, aDny Ríos Attending Provider Roof MACHINE FIXER-C, Dany Ríos Referring Provider Matt QUIROGA, Dr. Polk Attending Provider Roof MACHINE FIXER, Dany Ríos Referring Unavailable Roof MACHINE FIXER, Dany Ríos Attending Unavailable Malys, Hortensia Primary Care Unavailable Falcon, Alonso Referring Unavailable Falcon, Alonso Attending Unavailable Malys, Hortensia Primary Care Unavailable Edgar Park Admitting Unavailable Malys, Hortensia Primary Care Unavailable Terrie, Alonso Consulting Unavailable Terrie, Alonso Attending Unavailable Mostdustin, Edgar Consulting Unavailable Falcon, Alonso Referring Unavailable Falcon, Alonso Attending Unavailable Malys, Hortensia Primary Care Unavailable Malys, Hortensia Primary Care Unavailable Terrie, Alonso Attending Unavailable Terrie, Alonso Referring Unavailable Falcon, Alonso Attending Unavailable Malys, Hortensia Primary Care Unavailable Terrie, Alonso Referring Unavailable Edgar Park Admitting Unavailable Percy Wayne Attending Unavailable Malys, Hortensia Primary Care Unavailable Terrie, Alonso Consulting Unavailable Vivian, Edgar Consulting Unavailable Terrie, Alonso Attending Unavailable Malys, Hortensia Primary Care Unavailable Terrie, Alonso Referring Unavailable Edgar Park Attending Unavailable Terrie, Alonso Consulting Unavailable Terrie, Alonso Attending Unavailable Malys, Hortensia Primary Care Unavailable Falcon, Alonso Referring Unavailable Falcon, Alonso Consulting Unavailable Jeremy Kaplan Attending Unavailable Malys, Hortensia Primary Care Unavailable Terrie, Alonso Referring Unavailable Supriya Chin Attending Unavail able Joseph, [place] Consulting Unavailable Malys, Hortensia Primary Care Unavailable Malys, Hortensia Attending Unavailable Malys, Hortensia Primary Care Unavailable Malys, Hortensia Referring Unavailable Falcon, Alonso Referring Unavailable Falcon, Alonso Attending Unavailable Malys, Hortensia Primary Care Unavailable Falcon, Alonso Referring Unavailable Falcon, Alonso Attending Unavailable Malys, Hortensia Primary Care Unavailable Malys, Hortensia Primary Care Unavailable Jam Gutierrez Attending Unavailable Malys, Hortensia Primary Care Unavailable Joseph, Vinny Attending Unavailable Ungur, Remus Attending Unavailable Ungur, Remus Referring Unavailable Malys, Hortensia Primary Care Unavailable Falcon, Alonso Attending Unavailable Malys, Hortensia Primary Care Unavailable Malys, Hortensia Referring Unavailable Falcon, Alonso Attending Unavailable Malys, Hortensia Primary Care Unavailable Malys, Hortensia Referring Unavailable Alonso Falcon Attending Unavailable Malys, Hortensia Primary Care Unavailable Malys, Hortensia Referring Unavailable Alonso Falcon Attending Unavailable Malys, Hortensia Referring Unavailable Malys, Hortensia Primary Care Unavailable Fito COLLIER, Supriya Rodriguez Attending Unavail able Malys, Hortensia Primary Care Unavailable Malys, Hortensia Referring Unavailable Alonso Falcon Attending Unavailable Malys, Hortensia Primary Care Unavailable Malys, Hortensia Referring Unavailable Malys, Hortensia Primary Care Unavailable Malys, Hortensia Referring Unavailable Alonso Falcon Attending Unavailable Percy Wayne Consulting Unavailable Percy Wayne Attending Unavailable Alonso Falcon Referring Unavailable Joseph, [place] Attending Unavailable Malys, Hortensia Primary Care Unavailable Joseph, [place] Attending Unavailable Malys, Hortensia Primary Care Unavailable Joseph, [place] Attending Unavailable Malys, Hortensia Primary Care Unavailable Joseph, [place] Attending Unavailable Joseph, Vinny Referring Unavailable Malys, Hortensia Primary Care Unavailable Allergies Allergy Classification Reported Allergen(s) Allergy Type Date of Onset Reaction(s) Facility (3 sources) Metoprolol Drug Allergy 5 Headache. [facility] (3 sources) Simvastatin Drug Allergy 5 Myalgias, headaches [facility] (1 source) Metoprolol Drug Allergy 5 [facility] (1 source) Simvastatin Drug Allergy 5 [facility] Medications Current Medications Medication Drug Class(es) Dates Sig (Normalized) Sig (Original) apixaban 5 mg oral tablet (6 sources) Factor Xa Inhibitor Start: 07-08-2024 End: 07-21-2024 take 1 tablet by mouth twice daily Apixaban (Eliquis) 5 mg tablet Active 5 mg PO TWICE A DAY 60 July 21, 2024 3:25pm calcium carbonate 1500 mg / cholecalciferol 800 unt chewable tablet (7 sources) Vitamin D Start: 02-11-2025 Calcium Carbonate-Vitami n D3 (Calcium 600 With Vitamin D3) 600 mg-10 mcg (400 unit) tablet,chewable Active 1 {tbl} PO DAILY February 11, 2025 12:00am Start: 10-16-2019 take 1 tablet by galo th once daily in the morning calcium-vitamin D 600 mg-500 intl units oral tablet, extended release 1 tab, Oral, qAM, # 80 tab(s), 0 Refill(s) Start Date: 10/16/19 Status: Ordered carvedilol 6.25 mg oral tablet (16 sources) alpha-Adrenergic Jeramy, beta-Adrenergic Jeramy Start: 04-07-2025 take 1 tablet by mouth twice daily at mealtime Carvedilol 6.25 mg tablet Active 6.25 mg PO TWICE A DAY 180 April 07, 2025 12:00am must administer with a meal/food Start: 03-21-2025 End: 04-07-2025 take 2 tablets by mouth twice daily at mealtime Carvedilol 3.125 mg tablet Discontinued 6.25 mg PO TWICE A DAY 180 April 06, 2025 9:35am April 07, 2025 4:26pm must administer with a meal/food Start: 01-12-2025 End: 03-21-2025 take 1 tablet by mouth twice daily at mealtime Carvedilol 3.125 mg tablet Discontinued 3.125 mg PO TWICE A DAY 180 February 14, 2025 11:45am March 21, 2025 8:32am must administer with a meal/food Start: 12-24-2024 End: 01-12-2025 take 1 tablet by mouth twice daily at mealtime Carvedilol 6.25 mg tablet Discontinued 6.25 mg PO TWICE A DAY 60 December 24, 2024 11:06am January 12, 2025 1:19pm must administer with a meal/food Start: 10-22-2024 End: 12-24-2024 take 1 tablet by mouth twice daily at mealtime Carvedilol 3.125 mg tablet Discontinued 3.125 mg PO TWICE A DAY 60 October 22, 2024 1:00am December 24, 2024 11:07am must administer with a meal/food Daily Multi (4 sources) Start: 10-16-2019 Daily Multi Or al, qDay, 0 Refill(s) Start Date: 10/16/19 Status: Ordered flax seed oil 1000 mg oral capsule (4 sources) Start: 10-16-2019 flax seed oil 1000 mg oral capsule Dose : 1,000 mg = 1 cap(s), Oral, TID, 0 Refill(s) Start Date: 11/16/19 Status: Ordered flaxseed oil (6 sources) Start: 12-24-2024 take 1000 mg by mouth once daily flaxseed oil Active 1000 mg PO DAILY December 24, 2024 10:31am Start: 07-03-2024 End: 12-24-2024 flaxseed oil Discontinued 0 .ROUTE .COMPLEX July 03, 2024 12:00am December 24, 2024 10:32am 1000 mg once a day daily; losartan potassium 50 mg oral tablet (7 sources) Angiotensin 2 Receptor Jeramy Start: 05-11-2025 take 1 tablet by mouth once daily Losartan 50 mg tablet Active 50 mg PO DAILY May 11, 2025 3:12pm Start: 07-08-2024 End: 05-11-2025 take 1 tablet by mouth once daily Losartan 25 mg tablet Discontinued 25 mg PO DAILY July 21, 2024 3:25pm May 11, 2025 3:15pm mecobalamin 1 mg chewable tablet (3 sources) Start: 01-07-2025 take 1 tablet by mouth once daily Mecobalamin (Vitamin B12) 1,000 mcg tablet,chewable Active 1000 ug PO daily January 07, 2025 1:00am Multivitamin preparation (2 sources) Start: 09-04-2021 take 1 tablet by mouth once daily Multivitamin Active 1 TABLET PO DAILY September 03, 2021 11:00pm Start: 09-04-2021 take 1 tablet by galo th once daily Multivitamin Active 1 TABLET PO DAILY September 04, 2021 12:00am spironolactone 25 mg oral tablet (9 sources) Aldosterone Antagonist Start: 08-23-2024 Spironolactone 25 mg tablet Active 12.5 mg PO DAILY August 23, 2024 11:20am Start: 07-08-2024 End: 08-23-2024 take 1 tablet by mouth once daily Spironolactone 25 mg tablet Discontinued 25 mg PO DAILY July 21, 2024 3:26pm August 23, 2024 11:21am Completed/Discontinued Medications Medication Drug Class(es) Dates Sig (Normalized) Sig (Original) atenolol 50 mg oral tablet (3 sources) beta-Adrenergic Jeramy Start: 07-22-2024 End: 10-22-2024 take 1 tablet by mouth once daily Atenolol 50 mg tablet Discontinued 50 mg PO DAILY July 22, 2024 12:00am October 22, 2024 10:08am calcium carbonate 1250 mg oral tablet (5 sources) Start: 09-04-2021 End: 10-31-2024 take 1 tablet by mouth once daily Calcium Carbonate (Calcium 500) 500 mg calcium (1,250 mg) tablet Discontinued 500 mg PO DAILY September 04, 2021 12:00am October 31, 2024 11:28pm 24 hr metoprolol succinate 50 mg extended release oral tablet (6 sources) beta-Adrenergic Jeramy Start: 07-08-2024 End: 07-22-2024 take 1 tablet by mouth twice daily Metoprolol Succinate 50 mg tablet extended release 24 hr Discontinued 50 mg PO TWICE A DAY July 21, 2024 3:25pm July 22, 2024 10:49am Multivitamin tablet (3 sources) Start: 09-04-2021 End: 07-03-2024 Multivitamin tablet Discontinued 1 {tbl} PO DAILY September 04, 2021 12:00am July 03, 2024 9:03am rosuvastatin calcium 5 mg oral tablet (3 sources) HMG-CoA Reductase Inhibitor Start: 12-24-2024 End: 05-11-2025 take 1 tablet by mouth once daily Rosuvastatin (Crestor) 5 mg tablet Discontinued 5 mg PO daily December 24, 2024 1:00am May 11, 2025 2:24pm simvastatin 20 mg oral tablet (9 sources) HMG-CoA Reductase Inhibitor Start: 10-16-2019 End: 12-14-2024 take 1 tablet by mouth once daily Simvastatin 20 mg tablet Discontinued 20 mg PO DAILY September 04, 2021 12:00am December 14, 2024 4:55pm Zofran ODT 4 mg oral tablet, disintegrating (4 sources) Start: 10-16-2019 End: 10-19-2019 Zofran ODT 4 mg oral tablet, disintegrating Dose : 4 mg = 1 tab(s), Oral, TID, # 9 tab(s), 0 Refill(s) Start Date: 10/16/19 Stop Date: 10/19/19 Status: Ordered Problems Active Problems Problem Classification Problem Date Documented Da te Episodic/Chronic Aortic and peripheral arterial embolism or thrombosis (1 source) 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; Translations: [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] Onset: 04-05-2025 Chronic Cancer of uterus (5 sources) History of malignant neoplasm of endometrium; Translations: [Personal history of malignant neoplasm of other parts of uterus] 09-04-2021 Episodic Cardiac dysrhythmias (20 sources) Multiple premature ventricular complexes; Translations: [Ventricular premature depolarization] Onset: 09-02-2024 11-08-2024 Chronic Conditions associated with dizziness or vertigo (3 sources) Dizziness; Translations: [Dizziness and giddiness] 11-08-2024 Episodic Congestive heart failure; nonhypertensive (20 sources) Heart failure with reduced ejection fraction; Translations: [Unspecified systolic (congestive) heart failure] Onset: 07-21-2024 07-16-2024 Chronic Disorders of lipid metabolism (8 sources) Hyperlipidemia; Translations: [Hyperlipidemia, unspecified] Onset: 03-09-2025 12-24-2024 Chronic Menopausal disorders (5 sources) Atrophic vaginitis; Translations: [Postmenopausal atrophic vaginitis] 09-04-2021 Chronic Other aftercare (1 source) Drug monitoring done; Translations: [Encounter for therapeutic drug level monitoring] Episodic Other circulatory disease (3 sources) H/O: heart failure; Translations: [Personal history of other diseases of the circulatory system] 11-08-2024 Episodic Other lower respiratory disease (3 sources) Dyspnea; Translations: [Dyspnea, unspecified] 11-08-2024 Episodic Other lower respiratory disease (1 source) Other forms of dyspnea; Translations: [Other forms of dyspnea] Onset: 03-03-2025 Episodic Thyroid disorders (1 source) Hypothyroidism; Translations: [Hypothyroidism, unspecified] Chronic Unclassified (1 source) Unknown / UNK(Unknown) Onset: 01-02-2018 Past or Other Problems Problem Classification Problem Date Documented Da te Episodic/Chronic Cardiac dysrhythmias (1 source) Palpitations; Translations: [Palpitations] Onset: 07-29-2024 Episodic Malaise and fatigue (1 source) Other fatigue; Translations: [Other fatigue] Onset: 11-29-2024 Episodic Other screening for suspected conditions (not mental disorders or infectious disease) (8 sources) Other specified abnormal findings of blood chemistry; Translations: [Elevated liver function tests] Onset: 07-21-2024 07-03-2024 Episodic Residual codes; unclassified (3 sources) History of cardioversion; Translations: [Personal history of other medical treatment] Onset: 08-12-2024 08-19-2024 Episodic Residual codes; unclassified (1 source) Personal history of other medical treatment; Translations: [Personal history of other medical treatment] Onset: 09-07-2024 Episodic Unclassified (1 source) Z86.01 Onset: 01-02-2018 Results Test Name Value Interpretation Reference Range Facility Cardiology Visit Reporton Cardiology Visit Report Normal [facility] US Art Duplex Unilat UP Extr emon 03-30-2025 US Art Duplex Unilat UP Extrem Normal [facility] Cardiac Cath Diagnosticon Cardiac Cath Diagnostic Normal [facility] Cardiac catheterization repo rtOrdered By: Vinny Ruiz on 03-21-2025 Cardiac catheterization study [facility] Services [address] [place] [address] Cardiac Cath Diagnostic MR#: [id number] Acct: [id number] Name: STELLA THURMAN Rep #:[id number] : 1950 74 From: Vinny Ruiz MD PCP: Dr. Hortensia Wesley, DO [place] [facility] [place] Name: STELLA THURMAN Study Date: 03/21/2025 Performing: Vinny Ruiz MD Ht: 65 inches 165.1 cm : 1950 Wt: 138.01 lbs 62.6 kg Age: 74 Gender: female BSA: 1.69 PROCEDURE(S) PERFORMED DC01-(23282)LHC/COR/LV CLINICAL PROFILE AND INDICATIONS Indications: Cardiomyopathy Heart Failure: None Stress/Imaging Stress/Image Study Performed: No CAD Presentations: Symptom unlikely to be ischemic. 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 DESCRIPTION OF PROCEDURE The patient arrived to the procedure lab. The risks and benefits of the procedure as well as a full description of our services here and current unavailability of surgical backup were fully explained to the patient and/or their significant other prior to the catheterization. The Timeout was completed, verifying the correct patient and procedure. The patient's procedural site was prepped and draped in the usual fashion. Local anesthetic was given subcutaneously to right radial region with Lidocaine 2%. Using a modified Seldinger technique, arterial access was obtained via the right radial artery, a 6Fr sheath was inserted. Left Coronary Artery selective angiography was performed in multiple views using a 5 Fr. 4.0 Surrency catheter. Right Coronary Artery selective angiography was then performed in multiple views using a 5 Fr. 4.0 Surrency catheter. Left Ventriculography was performed in ALBRIGHT projection using a 5 Fr. Pigtail catheter. LV to AO pullback pressures were then recorded.The arterial sheath was pulled and a TR Band was applied for hemostasis w/ 10ml air CORONARY ANGIOGRAPHY DOMINANCE: Right Dominant LEFT HEART ASSESSMENT Left Ventricular Ejection Fraction: by LV Gram 25 % Inferior Basal Dyskinesis - Severe Depressed Left Ventricular systolic function LEFT MAIN: Angiographically normal LEFT ANTERIOR DESCENDING ARTERY: No significant disease noted CIRCUMFLEX ARTERY: Angiographically normal RIGHT CORONARY ARTERY: Angiographically normal VALVE FINDINGS: Mitral Valve Prolapse Mild COMPLICATIONS No Complications PROCEDURE MEDICATIONS Versed 1 mg IV Fentanyl 50 mcg IV Aspirin (325mg) 1 Tabs PO @ 03/21/2025 07:16:59 Heparin given IA 03/21/2025 08:00:03 SUMMARY OF HEMODYNAMIC DATA Time AIR REST ECG 07:13:42 AO 152/82 (108) SA 08:05:41 LV 151/8, 12 08:10:08 LV 148/7, 12 08:10:14 LV 136/13, 14 08:11:21 LV 143/12, 14 08:11:28 LV 158/10, 22 08:11:40 LVp 160/10, 16 08:11:46 AOp 156/79 (108) 08:11:51 09:04:11 Signed By Vinny Ruiz MD On 03/21/2025 09:05:32 Vinny Ruiz MD 03/21/25 0906 Date _ Vinny Ruiz MD Cosigner Signature: Date (if indicated) CC: Dr. Vinny Ruiz MD; Dr. Hortensia Wesley DO ~ Date Dictated: 03/21/257 Date Transcribed: 03/21/25904 Individual Small Group Instructor: [place] Signed [facility] Work Phone: Absolute lymphocyte countOrd ered By: Supriya Payton on 03-14-2025 Lymphocytes Auto (Unsp spec) [#/Vol] 1.43 10*3/uL 0.83-4.51 [facility] Absolute neutrophil countOrd ered By: Supriya Payton on 03-14-2025 Neutrophils (Bld) [#/Vol] 3.1 10*3/uL 2.0-7.7 [facility] Activated partial thrombopla stin time (aPTT) in platelet poor plasma by coagulation aOrdered By: Supriya Payton on 03-14-2025 aPTT Coag (PPP) [Time] 29.9 s 24.1-36.2 [facility] Anion gap in Serum or Plasma Ordered By: Supriya Payton on 03-14-2025 Anion gap [Moles/Vol] 10 mmol/L 04-14 [facility] Automated lymphocyte count a s percentage of total leukocytesOrdered By: Supriya Payton on 03-14-2025 Lymphocytes/100 WBC Auto (Unsp spec) 28.3 % [facility] BUN/creatinine ratioOrdered By: Supriya Payton on 03-14-2025 Urea nitrogen/Creatinine [Mass ratio] 15.9 mg/mg - [facility] Basic Metabolic Profile (BMP )on 03-14-2025 BUN/CRE 15.9 RATIO Normal 09-19 [facility] Comment on above: Performed By: #### L 300.4310, L500.2500, L100.0100, L300.3900 ####[facility] [address] [place], [address] Calcium [Mass/Vol] 9.2 mg/dL Normal 7.6-11.0 [facility] Comment on above: Performed By: #### L 300.4310, L500.2500, L100.0100, L300.3900 ####[facility] [address] [place], [address] Chloride [Moles/Vol] 102 mmol/L Normal 98-108 [facility] Comment on above: Performed By: #### L 300.4310, L500.2500, L100.0100, L300.3900 ####[facility] [address] [place], [address] CO2 [Moles/Vol] 28.4 mmol/L Normal 21.0-32.0 [facility] Comment on above: Performed By: #### L 300.4310, L500.2500, L100.0100, L300.3900 ####[facility] [address] [place], [address] Creatinine [Mass/Vol] 1.05 mg/dL Normal 0.70-1.20 [facility] Comment on above: Performed By: #### L 300.4310, L500.2500, L100.0100, L300.3900 ####[facility] [address] [place], [address] GAP 10 Normal 5-15 [facility] Comment on above: Performed By: #### L 300.4310, L500.2500, L100.0100, L300.3900 ####[facility] [address] [place], [address] GFR/1.73 sq M.predicted among non-blacks MDRD (S/P/Bld) [Vol rate/Area] 56 mL/min/{1.73_m2} Low >60 [facility] Comment on above: Result Comment: mL/m in/1.73m2 CKD-EPI Creatinine Equation (2020) Performed By: #### L 300.4310, L500.2500, L100.0100, L300.3900 ####[facility] [address] [place], [address] Glucose [Mass/Vol] 114 mg/dL High 70-99 [facility] Comment on above: Performed By: #### L 300.4310, L500.2500, L100.0100, L300.3900 ####[facility] [address] [place], [address] Potassium [Moles/Vol] 4.3 mmol/L Normal 3.3-5.1 [facility] Comment on above: Performed By: #### L 300.4310, L500.2500, L100.0100, L300.3900 ####[facility] [address] [place], [address] Sodium [Moles/Vol] 140 mmol/L Normal 133-145 [facility] Comment on above: Performed By: #### L 300.4310, L500.2500, L100.0100, L300.3900 ####[facility] [address] [place], [address] Urea nitrogen [Mass/Vol] 17 mg/dL Normal 4-19 [facility] Comment on above: Performed By: #### L 300.4310, L500.2500, L100.0100, L300.3900 ####[facility] [address] [place], [address] Basophil percentageOrdered B y: Supriya Payton on 03-14-2025 Basophils/100 WBC (Bld) 0.6 % 0- [facility] CBC W/Diff, Automatedon 03-01 Absolute Lymph 1.43 X10 3/uL Normal 0.83-4.51 [facility] Comment on above: Performed By: #### L 300.4310, L500.2500, L100.0100, L300.3900 ####[facility] [address] [place], [address] Absolute Neut 3.1 X10 3/uL Normal 2.0-7.7 [facility] Comment on above: Performed By: #### L 300.4310, L500.2500, L100.0100, L300.3900 ####[facility] [address] [place], [address] Basophils/100 WBC (Bld) 0.6 % Normal 0-1 [facility] Comment on above: Performed By: #### L 300.4310, L500.2500, L100.0100, L300.3900 ####[facility] [address] [place], [address] Eosinophils/100 WBC (Bld) 2.8 % Normal 0-5 [facility] Comment on above: Performed By: #### L 300.4310, L500.2500, L100.0100, L300.3900 ####[facility] [address] [place], [address] Erythrocyte distribution width (RBC) [Ratio] 13.0 % Normal 11.6-14.6 [facility] Comment on above: Performed By: #### L 300.4310, L500.2500, L100.0100, L300.3900 ####[facility] [address] [place], [address] Hematocrit (Bld) [Volume fraction] 41.0 % Normal 37-47 [facility] Comment on above: Performed By: #### L 300.4310, L500.2500, L100.0100, L300.3900 ####[facility] [address] [place], [address] Hemoglobin (Bld) [Mass/Vol] 13.2 g/dL Normal 12.0-15.0 [facility] Comment on above: Performed By: #### L 300.4310, L500.2500, L100.0100, L300.3900 ####[facility] [address] [place], [address] IG% 0.400 Normal 0.0-0.9 [facility] Comment on above: Result Comment: IG% - Immature Granulocytes (promyelocytes, myelocytes andmetamyelocytes) > 1% indicates that a LEFT SHIFT is Present. Performed By: #### L 300.4310, L500.2500, L100.0100, L300.3900 ####[facility] [address] [place], [address] Lymphocytes/100 WBC (Bld) 28.3 % Normal 19-41 [facility] Comment on above: Performed By: #### L 300.4310, L500.2500, L100.0100, L300.3900 ####[facility] [address] [place], [address] MCH (RBC) [Entitic mass] 29.9 pg Normal 27.0-32.0 [facility] Comment on above: Performed By: #### L 300.4310, L500.2500, L100.0100, L300.3900 ####[facility] [address] [place], [address] MCHC (RBC) [Mass/Vol] 32.2 g/dL Normal 32-36 [facility] Comment on above: Performed By: #### L 300.4310, L500.2500, L100.0100, L300.3900 ####[facility] [address] [place], [address] MCV (RBC) [Entitic vol] 93.0 fL Normal 81-99 [facility] Comment on above: Performed By: #### L 300.4310, L500.2500, L100.0100, L300.3900 ####[facility] [address] [place], [address] Monocytes/100 WBC (Bld) 7.1 % Normal 0-10 [facility] Comment on above: Performed By: #### L 300.4310, L500.2500, L100.0100, L300.3900 ####[facility] [address] [place], [address] Neutrophils/100 WBC (Bld) 60.8 % Normal 47-70 [facility] Comment on above: Performed By: #### L 300.4310, L500.2500, L100.0100, L300.3900 ####[facility] [address] [place], [address] Nucleated RBC (Bld) [#/Vol] 0 10*3/uL Normal 0-5 [facility] Comment on above: Performed By: #### L 300.4310, L500.2500, L100.0100, L300.3900 ####[facility] [address] [place], [address] Platelet mean volume (Bld) [Entitic vol] 10.2 fL Normal 6.2-12.0 [facility] Comment on above: Performed By: #### L 300.4310, L500.2500, L100.0100, L300.3900 ####[facility] [address] [place], [address] Platelets (Bld) [#/Vol] 194 10*3/uL Normal 150-450 [facility] Comment on above: Performed By: #### L 300.4310, L500.2500, L100.0100, L300.3900 ####[facility] [address] [place], [address] RBC (Bld) [#/Vol] 4.41 10*6/uL Normal 4.2-5.4 [facility] Comment on above: Performed By: #### L 300.4310, L500.2500, L100.0100, L300.3900 ####[facility] [address] [place], [address] RDW SD 44.7 fl High 35.1-43.9 [facility] Comment on above: Performed By: #### L 300.4310, L500.2500, L100.0100, L300.3900 ####[facility] [address] [place], [address] WBC (Bld) [#/Vol] 5.1 10*3/uL Normal 4.4-11.0 [facility] Comment on above: Performed By: #### L 300.4310, L500.2500, L100.0100, L300.3900 ####[facility] [address] [place], [address] Carbon dioxide, total [Moles /volume] in Central venous bloodOrdered By: Supriya Payton on 03-14-2025 CO2 [Moles/Vol] 28.4 mmol/L 21.0-32.0 [facility] Chloride assayOrdered By: Lorin Payton on 03-14-2025 Chloride [Moles/Vol] 102 mmol/L 98-108 [facility] Eosinophil percentageOrdered By: Supriya Payton on 03-14-2025 Eosinophils/100 WBC (Bld) 2.8 % 0-5 [facility] Erythrocyte distribution wid th (RBC) [Ratio]Ordered By: Supriya Payton on 03-14-2025 Erythrocyte distribution width (RBC) [Entitic vol] 44.7 fL High 35.1-43.9 [facility] Erythrocyte distribution wid th ratioOrdered By: Supriya Payton on 03-14-2025 Erythrocyte distribution width (RBC) [Ratio] 13.0 % 11.6-14.6 [facility] Erythrocyte distribution wid th standard deviationOrdered By: Supriya Payton on 03-14-2025 Erythrocyte distribution width (RBC) [Ratio] 44.7 fl High 35.1-43.9 [facility] GFR/1.73 sq M.predicted romy g non-blacks MDRD (S/P/Bld) [Vol rate/Area]Ordered By: Supriya Payton on 03-14-2025 Estimated GFR (MDRD) Non-Af Amer 56 Low >60 [facility] Comment on above: mL/min/1.73m2 CKD-EP I Creatinine Equation (2020) Glomerular filtration rate ( GFR) estimation/1.73 sq m using serum, plasma, or whole bOrdered By: Supriya Payton on 03-14-2025 GFR/1.73 sq M.predicted among non-blacks MDRD (S/P/Bld) [Vol rate/Area] 56 mL/min/{1.73_m2} Low >60 [facility] Comment on above: mL/min/1.73m2 CKD-EP I Creatinine Equation (2020) Hematocrit Auto (Bld) [Volum e fraction]Ordered By: Supriya Payton on 03-14-2025 Hematocrit (Bld) [Volume fraction] 41.0 % 37-47 [facility] Hemoglobin measurementOrdere d By: Supriya Payton on 03-14-2025 Hemoglobin (Bld) [Mass/Vol] 13.2 g/dL 12.0-15.0 [facility] Immature granulocytes/100 WB C Auto (Bld)Ordered By: Supriya Payton on 03-14-2025 Immature granulocytes/100 WBC (Bld) 0.400 % 0.0-0.9 [facility] Comment on above: IG% - Immature Granu locytes (promyelocytes, myelocytes and metamyelocytes) > 1% indicates that a LEFT SHIFT is Present. International normalized rat io (INR) calculationOrdered By: Supriya Payton on 03-14-2025 INR Coag (Bld) [Relative time] 1.1 {INR} [facility] Lymphocytes Auto (Unsp spec) [#/Vol]Ordered By: Supriya Payton on 03-14-2025 Lymphocytes (Bld) [#/Vol] 1.43 10*3/uL 0.83-4.51 [facility] Lymphocytes/100 WBC Auto (Un sp spec)Ordered By: Supriya Payton on 03-14-2025 Lymphocytes/100 WBC (Bld) 28.3 % 19-41 [facility] MCV (mean corpuscular volume ) determinationOrdered By: Supriya Payton on 03-14-2025 MCV (RBC) [Entitic vol] 93.0 fL 81-99 [facility] Mean corpuscular hemoglobin (MCH) determinationOrdered By: Supriya Payton on 03-14-2025 MCH (RBC) [Entitic mass] 29.9 pg 27.0-32.0 [facility] Mean corpuscular hemoglobin concentration (MCHC) determinationOrdered By: Supriya Payton on 03-14-2025 MCHC (RBC) [Mass/Vol] 32.2 g/dL 32-36 [facility] Mean platelet volume determi nationOrdered By: Supriya Payton on 03-14-2025 Platelet mean volume (Bld) [Entitic vol] 10.2 fL 6.2-12.0 [facility] Monocyte percentageOrdered B y: Supriya Payton on 03-14-2025 Monocytes/100 WBC (Bld) 7.1 % 0-10 [facility] Neutrophil percentageOrdered By: Supriya Payton on 03-14-2025 Neutrophils/100 WBC (Bld) 60.8 % 47-70 [facility] Nucleated red blood cell per centageOrdered By: Supriya Payton on 03-14-2025 Nucleated RBC/100 WBC (Bld) [Ratio] 0 % 0-5 [facility] Partial Thromboplast Timeon 03-14-2025 aPTT Coag (Bld) [Time] 29.9 s Normal 24.1-36.2 [facility] Comment on above: Performed By: #### L 300.4310, L500.2500, L100.0100, L300.3900 ####[facility] [address] [place], [place], [id number] Platelet countOrdered By: Lorin Payton on 03-14-2025 Platelets (Bld) [#/Vol] 194 10*3/uL 150-450 [facility] Potassium (Unsp spec) [Mass/ Vol]Ordered By: Supriya Payotn on 03-14-2025 Potassium [Moles/Vol] 4.3 mmol/L 3.3-5.1 [facility] Potassium measurement (mass/ volume)Ordered By: Supriya Payton on 03-14-2025 Potassium (Unsp spec) [Mass/Vol] 4.3 mmol/L 3.3-5.1 [facility] Prothrombin Time w/INRon INR Coag (PPP) [Relative time] 1.1 {INR} Normal [facility] Comment on above: Performed By: #### L 300.4310, L500.2500, L100.0100, L300.3900 ####[facility] [address] [place], [address] PT Coag (PPP) [Time] 14.0 s Normal 11.7-14.9 [facility] Comment on above: Performed By: #### L 300.4310, L500.2500, L100.0100, L300.3900 ####[facility] [address] [place], [place], [address] Prothrombin timeOrdered By: Supriya Payton on 03-14-2025 PT Coag (PPP) [Time] 14.0 s 11.7-14.9 [facility] RBC Auto (Bld) [#/Vol]Ordere d By: Supriya Payton on 03-14-2025 RBC (Bld) [#/Vol] 4.41 10*6/uL 4.2-5.4 [facility] Serum creatinine measurement (mass/volume)Ordered By: Supriya Payton on 03-14-2025 Creatinine [Mass/Vol] 1.05 mg/dL 0.70-1.20 [facility] Serum glucose measurement (m ass/volume)Ordered By: Supriya Payton on 03-14-2025 Glucose [Mass/Vol] 114 mg/dL High 70-99 [facility] Serum or plasma calcium ananth urement (mass/volume)Ordered By: Supriya Payton on 03-14-2025 Calcium [Mass/Vol] 9.2 mg/dL 7.6-11.0 [facility] Serum or plasma urea nitroge n measurement (mass/volume)Ordered By: Supriya Payton on 03-14-2025 Urea nitrogen [Mass/Vol] 17 mg/dL 4-19 [facility] Sodium levelOrdered By: Pedro Payton on 03-14-2025 Sodium [Moles/Vol] 140 mmol/L 133-145 [facility] White blood cell (WBC) count Ordered By: Supriya Payton on 03-14-2025 WBC (Bld) [#/Vol] 5.1 10*3/uL 4.4-11.0 [facility] aPTT Coag (PPP) [Time]Ordere d By: Supriya Payton on 03-14-2025 aPTT Coag (Bld) [Time] 29.9 s 24.1-36.2 [facility] Echo, Limited Studyon 2024 Echo, Limited Study Normal [facility] Limited echocardiogram repor tOrdered By: Vinny Ruiz on 02-28-2025 Study report [facility] [address] [place] [address] Echo, Limited Study 02/28/25 1011 MR#: [id number] Acct: [id number] Name: STELLA THURMAN Rep #:[id number] : 1950 74 From: Vinny Astudillo Attending Dr: Dr. Alonso Falcon MD Status: REG CLI Ordering Dr: Alonso Falcon MD Date: 02/28/25 Location: [facility] Sex: F C Admitted: Reason For Study Reason For Study: CHF Procedure This was a limited 2D transthoracic echocardiogram. Myocardial strain analysis was performed in this exam to aid in the assessment of cardiac function. Exam performed in department. Left Ventricle Severely dilated left ventricle. The left ventricular ejection fraction is 30 %.There is severe global hypokinesis of the left ventricle. Right Ventricle Normal RV size. Normal systolic function. Atria The left atrium is severely enlarged. Normal right atrium. Mitral Valve Bileaflet diffuse mitral valve thickening. Tricuspid Valve Normal tricuspid valve. Aortic Valve Trisinus/trileaflet aortic valve. Pulmonic Valve Normal pulmonic valve. Great Vessels Normal aortic root. The pulmonary artery is normal size. Inferior vena cava collapse with respiration. Pericardium/Pleural No pericardial effusion. MMode/2D Measurements & Calculations LVIDd: 7.0 cm IVSd: 1.0 cm Ao root diam: 2.5 cm LVIDs: 5.0 cm LVPWd: 1.0 cm RVDd: 2.5 cm FS: 28.2 % LAV(MOD-bp): 131.0 ml LVAd ap4: 37.7 cm2 LVAd ap2: 36.9 cm2 LAV(MOD-bp) Indexed: 78.0 ml/m2 LVLd ap4: 8.1 cm LVLd ap2: 8.0 cm LAV(MOD-sp2): 130.0 ml EDV(MOD-sp4): 146.1 ml EDV(MOD-sp2): 142.1 ml LAV(MOD-sp4): 118.3 ml EDV(sp4-el): 148.3 ml EDV(sp2-el): 145.6 ml LVAs ap4: 29.0 cm2 LVAs ap2: 29.0 cm2 LVLs ap4: 7.1 cm LVLs ap2: 7.2 cm ESV(MOD-sp4): 99.8 ml ESV(MOD-sp2): 95.0 ml ESV(sp4-el): 101.1 ml ESV(sp2-el): 99.8 ml EF(MOD-sp4): 31.7 % EF(MOD-sp2): 33.2 % EF(sp4-el): 31.9 % SV(MOD-sp4): 46.3 ml SV(MOD-sp2): 47.1 ml SV(sp4-el): 47.3 ml SI(MOD-sp4): 27.6 ml/m2 SI(MOD-sp2): 28.1 ml/m2 LA A4 area: 31.2 cm2 LA dimension(2D): 5.1 cm RA A4 area: 8.5 cm2 ECHO/Echo, Limited Study Interpretation Summary The left ventricular ejection fraction is 30 %. Severely dilated left ventricle. Bileaflet diffuse mitral valve thickening. Compared to previous study, the left ventricular systolic function is the same.. ___ Ordering Physician: Alonso Falcon Referring Physician: Alonso Falcon Performed By: Poornima Martinez RCS 02/28/25 1151 Date _ Vinny Ruiz MD CC: Dr. Hortensia Wesley DO; Dr. Alonso Falcon MD ~ Date Dictated: 02/28/25 1011 Date Transcribed: 02/28/25 1151 Individual Small Group Instructor: Signed [facility] Work Phone: 12 Lead EKG performed by BMS on 02-11-2025 12 Lead EKG performed by BMS [facility] Cardiology Visit Reporton Cardiology Visit Report Normal [facility] 12 Lead EKG performed by BMS on 12-24-2024 12 Lead EKG performed by BMS [facility] Cardiology Visit Reporton Cardiology Visit Report Normal [facility] 12 Lead EKG performed by BMS on 11-12-2024 12 Lead EKG performed by BMS [facility] Cardiology Visit Reporton Cardiology Visit Report [facility] Echo Completeon 11-10-2024 Echo Complete [facility] 12 Lead EKGon 10-31-2024 12 Lead EKG [facility] BNP,B-Type NATRIURETIC PEPTI Tony 10-31-2024 Natriuretic peptide B (Bld) [Mass/Vol] 336.9 pg/mL High 0-100 [facility] Comment on above: Performed By: #### L 500.2500, L501.4020, L503.6620, L100.0100 ####[facility] [address] [place], [address] Basic Metabolic Profile (BMP )on 10-31-2024 BUN/CRE 23.4 RATIO High 10-20 [facility] Comment on above: Order Comment: 'TROP ' Serial specimen #1, #2 or #3: 1 Performed By: #### L 500.2500, L501.4020, L503.6620, L100.0100 ####[facility] [address] [place], [address] CA,Total 9.1 mg/dL Normal 8.5-10.1 [facility] Comment on above: Order Comment: 'TROP ' Serial specimen #1, #2 or #3: 1 Performed By: #### L 500.2500, L501.4020, L503.6620, L100.0100 ####[facility] [address] [place], [address] Chloride [Moles/Vol] 102 mmol/L Normal 98-107 [facility] Comment on above: Order Comment: 'TROP ' Serial specimen #1, #2 or #3: 1 Performed By: #### L 500.2500, L501.4020, L503.6620, L100.0100 ####[facility] [address] [place], [address] CO2 [Moles/Vol] 29.0 mmol/L Normal 21.0-32.0 [facility] Comment on above: Order Comment: 'TROP ' Serial specimen #1, #2 or #3: 1 Performed By: #### L 500.2500, L501.4020, L503.6620, L100.0100 ####[facility] [address] [place], [address] Creatinine [Mass/Vol] 1.07 mg/dL High 0.55-1.02 [facility] Comment on above: Order Comment: 'TROP ' Serial specimen #1, #2 or #3: 1 Result Comment: The validity of the calculated GFR GFRAA in patients over70 years has not been determined. Clinical correlation isessential. Performed By: #### L 500.2500, L501.4020, L503.6620, L100.0100 ####[facility] [address] [place], [address] ECRCL 42.76 ml/min Normal [facility] Comment on above: Order Comment: 'TROP ' Serial specimen #1, #2 or #3: 1 Performed By: #### L 500.2500, L501.4020, L503.6620, L100.0100 ####[facility] [address] [place], [address] EST GFR - AA 65 mL/min Normal >60 [facility] Comment on above: Order Comment: 'TROP ' Serial specimen #1, #2 or #3: 1 Result Comment: Afri can Marshallese GFR Calc Performed By: #### L 500.2500, L501.4020, L503.6620, L100.0100 ####[facility] [address] [place], [address] GAP 7 Normal 5-15 [facility] Comment on above: Order Comment: 'TROP ' Serial specimen #1, #2 or #3: 1 Performed By: #### L 500.2500, L501.4020, L503.6620, L100.0100 ####[facility] [address] [place], [address] GFR/1.73 sq M.predicted among non-blacks MDRD (S/P/Bld) [Vol rate/Area] 53 mL/min/{1.73_m2} Low >60 [facility] Comment on above: Order Comment: 'TROP ' Serial specimen #1, #2 or #3: 1 Result Comment: Non- GFR Calc Performed By: #### L 500.2500, L501.4020, L503.6620, L100.0100 ####[facility] [address] [place], [address] Glucose [Mass/Vol] 114 mg/dL High 74-106 [facility] Comment on above: Order Comment: 'TROP ' Serial specimen #1, #2 or #3: 1 Result Comment: Fast ing Glucose result from 100 to 125 mg/dLsuggests IMPAIRED HOMEOSTASIS per A.D.A. criteria. Performed By: #### L 500.2500, L501.4020, L503.6620, L100.0100 ####[facility] [address] [place], [address] Potassium [Moles/Vol] 4.1 mmol/L Normal 3.5-5.1 [facility] Comment on above: Order Comment: 'TROP ' Serial specimen #1, #2 or #3: 1 Performed By: #### L 500.2500, L501.4020, L503.6620, L100.0100 ####[facility] [address] [place], [address] Sodium [Moles/Vol] 138 mmol/L Normal 136-145 [facility] Comment on above: Order Comment: 'TROP ' Serial specimen #1, #2 or #3: 1 Performed By: #### L 500.2500, L501.4020, L503.6620, L100.0100 ####[facility] [address] [place], [address] Urea nitrogen [Mass/Vol] 25 mg/dL High 7-18 [facility] Comment on above: Order Comment: 'TROP ' Serial specimen #1, #2 or #3: 1 Performed By: #### L 500.2500, L501.4020, L503.6620, L100.0100 ####[facility] [address] [place], [address] CBC W/Diff, Automatedon 12-0 -2023 Absolute Lymph 2.16 X10 3/uL Normal 0.83-4.51 [facility] Comment on above: Performed By: #### L 500.2500, L501.4020, L503.6620, L100.0100 ####[facility] [address] [place], [address] Absolute Neut 3.0 X10 3/uL Normal 2.0-7.7 [facility] Comment on above: Performed By: #### L 500.2500, L501.4020, L503.6620, L100.0100 ####[facility] [address] [place], [address] Basophils/100 WBC (Bld) 0.7 % Normal 0-1 [facility] Comment on above: Performed By: #### L 500.2500, L501.4020, L503.6620, L100.0100 ####[facility] [address] [place], [address] Eosinophils/100 WBC (Bld) 3.1 % Normal 0-5 [facility] Comment on above: Performed By: #### L 500.2500, L501.4020, L503.6620, L100.0100 ####[facility] [address] [place], [address] Erythrocyte distribution width (RBC) [Ratio] 13.6 % Normal 11.6-14.6 [facility] Comment on above: Performed By: #### L 500.2500, L501.4020, L503.6620, L100.0100 ####[facility] [address] [place], [address] Hematocrit (Bld) [Volume fraction] 41.0 % Normal 37-47 [facility] Comment on above: Performed By: #### L 500.2500, L501.4020, L503.6620, L100.0100 ####[facility] [address] [place], [address] Hemoglobin (Bld) [Mass/Vol] 13.5 g/dL Normal 12.0-15.0 [facility] Comment on above: Performed By: #### L 500.2500, L501.4020, L503.6620, L100.0100 ####[facility] [address] [place], [address] IG% 0.200 Normal 0.0-0.9 [facility] Comment on above: Result Comment: IG% - Immature Granulocytes (promyelocytes, myelocytes andmetamyelocytes) > 1% indicates that a LEFT SHIFT is Present. Performed By: #### L 500.2500, L501.4020, L503.6620, L100.0100 ####[facility] [address] [place], [address] Lymphocytes/100 WBC (Bld) 37.0 % Normal 19-41 [facility] Comment on above: Performed By: #### L 500.2500, L501.4020, L503.6620, L100.0100 ####[facility] [address] [place], [address] MCH (RBC) [Entitic mass] 30.4 pg Normal 27.0-32.0 [facility] Comment on above: Performed By: #### L 500.2500, L501.4020, L503.6620, L100.0100 ####[facility] [address] [place], [address] MCHC (RBC) [Mass/Vol] 32.9 g/dL Normal 32-36 [facility] Comment on above: Performed By: #### L 500.2500, L501.4020, L503.6620, L100.0100 ####[facility] [address] [place], [address] MCV (RBC) [Entitic vol] 92.3 fL Normal 81-99 [facility] Comment on above: Performed By: #### L 500.2500, L501.4020, L503.6620, L100.0100 ####[facility] [address] [place], [address] Monocytes/100 WBC (Bld) 7.7 % Normal 0-10 [facility] Comment on above: Performed By: #### L 500.2500, L501.4020, L503.6620, L100.0100 ####[facility] [address] [place], [address] Neutrophils/100 WBC (Bld) 51.3 % Normal 47-70 [facility] Comment on above: Performed By: #### L 500.2500, L501.4020, L503.6620, L100.0100 ####[facility] [address] [place], [address] Nucleated RBC (Bld) [#/Vol] 0 10*3/uL Normal 0-5 [facility] Comment on above: Performed By: #### L 500.2500, L501.4020, L503.6620, L100.0100 ####[facility] [address] [place], [address] Platelet mean volume (Bld) [Entitic vol] 10.3 fL Normal 6.2-12.0 [facility] Comment on above: Performed By: #### L 500.2500, L501.4020, L503.6620, L100.0100 ####[facility] [address] [place], [address] Platelets (Bld) [#/Vol] 205 10*3/uL Normal 150-450 [facility] Comment on above: Performed By: #### L 500.2500, L501.4020, L503.6620, L100.0100 ####[facility] [address] [place], [address] RBC (Bld) [#/Vol] 4.44 10*6/uL Normal 4.2-5.4 [facility] Comment on above: Performed By: #### L 500.2500, L501.4020, L503.6620, L100.0100 ####[facility] [address] [place], [address] RDW SD 46.6 fl High 35.1-43.9 [facility] Comment on above: Performed By: #### L 500.2500, L501.4020, L503.6620, L100.0100 ####[facility] [address] [place], [address] WBC (Bld) [#/Vol] 5.8 10*3/uL Normal 4.4-11.0 [facility] Comment on above: Performed By: #### L 500.2500, L501.4020, L503.6620, L100.0100 ####[facility] [address] [place], [address] Chest 1 View (Portable)on Chest 1 View (Portable) Normal [facility] Emergency Department Summary on 10-31-2024 Emergency Department Summary Normal [facility] L501.4020on 10-31-2024 TROPONIN-I HS 17 pg/mL Normal 3.0-54.0 [facility] Comment on above: Order Comment: 'TROP ' Serial specimen #1, #2 or #3: 1 Result Comment: Nir boateng Note: New Test Units and Gender Specific Reference Ranges. For more information see Policy Stat Procedure [place] High Sensitivity Troponin (TNIH) and attachments. Performed By: #### L 500.2500, L501.4020, L503.6620, L100.0100 ####[facility] [address] [place], [address] Urinalysis, Completeon 10-31 RBC 0-5 SEEN Normal 0-5 [facility] Comment on above: Order Comment: CLEAN CATCH Performed By: #### L 400.0001 ####[facility] [address] [place], [address] BACTERIA 0 SEEN Normal None Seen [facility] Comment on above: Order Comment: CLEAN CATCH Performed By: #### L 400.0001 ####[facility] [address] [place], [address] EPI,SQUAMOUS 0 SEEN Normal 5-10 [facility] Comment on above: Order Comment: CLEAN CATCH Performed By: #### L 400.0001 ####[facility] [address] [place], [address] Mucus Ql (Urine sed) 0 SEEN Normal [facility] Comment on above: Order Comment: CLEAN CATCH Performed By: #### L 400.0001 ####[facility] [address] [place], [address] WBC 0 SEEN Normal 0-5 [facility] Comment on above: Order Comment: CLEAN CATCH Performed By: #### L 400.0001 ####[facility] [address] [place], [address] 12 Lead EKG performed by [facility] on 09-07-2024 12 Lead EKG performed by [facility] Normal [facility] BNP,B-Type NATRIURETIC PEPTI Tony 09-07-2024 Natriuretic peptide B (Bld) [Mass/Vol] 370.2 pg/mL High 0-100 [facility] Comment on above: Performed By: #### L 100.0500, L500.2500, L503.6620 ####[facility] [address] [place], [address] Basic Metabolic Profile (BMP )on 09-07-2024 BUN/CRE 17.6 RATIO Normal -20 [facility] Comment on above: Performed By: #### L 100.0500, L500.2500, L503.6620 ####[facility] [address] [place], [address] CA,Total 9.1 mg/dL Normal 8.5-10.1 [facility] Comment on above: Performed By: #### L 100.0500, L500.2500, L503.6620 ####[facility] [address] [place], [address] Chloride [Moles/Vol] 104 mmol/L Normal 98-107 [facility] Comment on above: Performed By: #### L 100.0500, L500.2500, L503.6620 ####[facility] [address] [place], [address] CO2 [Moles/Vol] 29.0 mmol/L Normal 21.0-32.0 [facility] Comment on above: Performed By: #### L 100.0500, L500.2500, L503.6620 ####[facility] [address] [place], [address] Creatinine [Mass/Vol] 1.31 mg/dL High 0.55-1.02 [facility] Comment on above: Result Comment: The validity of the calculated GFR GFRAA in patients over70 years has not been determined. Clinical correlation isessential. Performed By: #### L 100.0500, L500.2500, L503.6620 ####[facility] [address] [place], [address] EST GFR - AA 51 mL/min Low >60 [facility] Comment on above: Result Comment: Afri can Marshallese GFR Calc Performed By: #### L 100.0500, L500.2500, L503.6620 ####[facility] [address] [place], [address] GAP 6 Normal 5-15 [facility] Comment on above: Performed By: #### L 100.0500, L500.2500, L503.6620 ####[facility] [address] [place], [address] GFR/1.73 sq M.predicted among non-blacks MDRD (S/P/Bld) [Vol rate/Area] 42 mL/min/{1.73_m2} Low >60 [facility] Comment on above: Result Comment: Non- GFR Calc Performed By: #### L 100.0500, L500.2500, L503.6620 ####[facility] [address] [place], [address] Glucose [Mass/Vol] 120 mg/dL High 74-106 [facility] Comment on above: Result Comment: Fast ing Glucose result from 100 to 125 mg/dLsuggests IMPAIRED HOMEOSTASIS per A.D.A. criteria. Performed By: #### L 100.0500, L500.2500, L503.6620 ####[facility] [address] [place], [address] Potassium [Moles/Vol] 3.7 mmol/L Normal 3.5-5.1 [facility] Comment on above: Performed By: #### L 100.0500, L500.2500, L503.6620 ####[facility] [address] [place], [address] Sodium [Moles/Vol] 139 mmol/L Normal 136-145 [facility] Comment on above: Performed By: #### L 100.0500, L500.2500, L503.6620 ####[facility] [address] [place], [address] Urea nitrogen [Mass/Vol] 23 mg/dL High 7-18 [facility] Comment on above: Performed By: #### L 100.0500, L500.2500, L503.6620 ####[facility] [address] [place], [address] CBC-Complete Blood Cnt No Di ffon 09-07-2024 Erythrocyte distribution width (RBC) [Ratio] 13.7 % Normal 11.6-14.6 [facility] Comment on above: Performed By: #### L 100.0500, L500.2500, L503.6620 ####[facility] [address] [place], [address] Hematocrit (Bld) [Volume fraction] 41.8 % Normal 37-47 [facility] Comment on above: Performed By: #### L 100.0500, L500.2500, L503.6620 ####[facility] [address] [place], [address] Hemoglobin (Bld) [Mass/Vol] 13.4 g/dL Normal 12.0-15.0 [facility] Comment on above: Performed By: #### L 100.0500, L500.2500, L503.6620 ####[facility] [address] [place], [address] MCH (RBC) [Entitic mass] 29.6 pg Normal 27.0-32.0 [facility] Comment on above: Performed By: #### L 100.0500, L500.2500, L503.6620 ####[facility] [address] [place], [address] MCHC (RBC) [Mass/Vol] 32.1 g/dL Normal 32-36 [facility] Comment on above: Performed By: #### L 100.0500, L500.2500, L503.6620 ####[facility] [address] [place], [address] MCV (RBC) [Entitic vol] 92.5 fL Normal 81-99 [facility] Comment on above: Performed By: #### L 100.0500, L500.2500, L503.6620 ####[facility] [address] [place], [address] Platelet mean volume (Bld) [Entitic vol] 10.1 fL Normal 6.2-12.0 [facility] Comment on above: Performed By: #### L 100.0500, L500.2500, L503.6620 ####[facility] [address] [place], [address] Platelets (Bld) [#/Vol] 210 10*3/uL Normal 150-450 [facility] Comment on above: Performed By: #### L 100.0500, L500.2500, L503.6620 ####[facility] [address] [place], [address] RBC (Bld) [#/Vol] 4.52 10*6/uL Normal 4.2-5.4 [facility] Comment on above: Performed By: #### L 100.0500, L500.2500, L503.6620 ####[facility] [address] [place], [address] RDW SD 46.4 fl High 35.1-43.9 [facility] Comment on above: Performed By: #### L 100.0500, L500.2500, L503.6620 ####[facility] [address] [place], [address] WBC (Bld) [#/Vol] 5.7 10*3/uL Normal 4.4-11.0 [facility] Comment on above: Performed By: #### L 100.0500, L500.2500, L503.6620 ####[facility] [address] [place], [address] Cardiology Visit Reporton Cardiology Visit Report Normal [facility] SCRN MAMM (CAD)W/GRANT BILATo n 08-23-2024 SCRN MAMM (CAD)W/GRANT BILAT Normal [facility] 12 Lead EKG performed by [facility] on 08-19-2024 12 Lead EKG performed by [facility] Normal [facility] BNP,B-Type NATRIURETIC PEPTI Tony 08-19-2024 Natriuretic peptide B (Bld) [Mass/Vol] 274.0 pg/mL High 0-100 [facility] Comment on above: Performed By: #### L 500.4050, L503.6620 ####[facility] [address] [place], [address] Comprehensive Metabolic Prof ilon 08-19-2024 Albumin [Mass/Vol] 3.8 g/dL Normal 3.2-5.0 [facility] Comment on above: Performed By: #### L 500.4050, L503.6620 ####[facility] [address] [place], [address] Albumin/Globulin [Mass ratio] 1.0 {ratio} Normal 0.9-2.4 [facility] Comment on above: Performed By: #### L 500.4050, L503.6620 ####[facility] [address] [place], [address] ALK P 110 U/L Normal 45-117 [facility] Comment on above: Performed By: #### L 500.4050, L503.6620 ####[facility] [address] [place], [address] ALT [Catalytic activity/Vol] 60 U/L High 13-56 [facility] Comment on above: Performed By: #### L 500.4050, L503.6620 ####[facility] [address] [place], [address] AST [Catalytic activity/Vol] 55 U/L High 15-37 [facility] Comment on above: Result Comment: Mode rate Hemolysis, Result may be falsely increased. Performed By: #### L 500.4050, L503.6620 ####[facility] [address] [place], [address] Bilirubin [Mass/Vol] 1.50 mg/dL High 0.20-1.00 [facility] Comment on above: Result Comment: For patients on eltrombopag therapy, use of Dimension [place] TBIL is not recommended. Performed By: #### L 500.4050, L503.6620 ####[facility] [address] [place], [address] BUN/CRE 19.3 RATIO Normal 10-20 [facility] Comment on above: Performed By: #### L 500.4050, L503.6620 ####[facility] [address] [place], [address] CA,Total 9.7 mg/dL Normal 8.5-10.1 [facility] Comment on above: Performed By: #### L 500.4050, L503.6620 ####[facility] [address] [place], [address] Chloride [Moles/Vol] 106 mmol/L Normal 98-107 [facility] Comment on above: Performed By: #### L 500.4050, L503.6620 ####[facility] [address] [place], [address] CO2 [Moles/Vol] 26.0 mmol/L Normal 21.0-32.0 [facility] Comment on above: Performed By: #### L 500.4050, L503.6620 ####[facility] [address] [place], [address] Creatinine [Mass/Vol] 1.09 mg/dL High 0.55-1.02 [facility] Comment on above: Result Comment: The validity of the calculated GFR GFRAA in patients over70 years has not been determined. Clinical correlation isessential. Performed By: #### L 500.4050, L503.6620 ####[facility] [address] [place], [address] EST GFR - AA 63 mL/min Normal >60 [facility] Comment on above: Result Comment: Afri can Marshallese GFR Calc Performed By: #### L 500.4050, L503.6620 ####[facility] [address] [place], [address] GAP 4 Low 5-15 [facility] Comment on above: Performed By: #### L 500.4050, L503.6620 ####[facility] [address] [place], [address] GFR/1.73 sq M.predicted among non-blacks MDRD (S/P/Bld) [Vol rate/Area] 52 mL/min/{1.73_m2} Low >60 [facility] Comment on above: Result Comment: Non- GFR Calc Performed By: #### L 500.4050, L503.6620 ####[facility] [address] [place], [address] Globulin (S) [Mass/Vol] 3.8 g/dL Normal 2.2-4.2 [facility] Comment on above: Performed By: #### L 500.4050, L503.6620 ####[facility] [address] [place], [address] Glucose [Mass/Vol] 89 mg/dL Normal 74-106 [facility] Comment on above: Performed By: #### L 500.4050, L503.6620 ####[facility] [address] [place], [address] Potassium [Moles/Vol] 5.4 mmol/L High 3.5-5.1 [facility] Comment on above: Result Comment: Mode rate Hemolysis, Result may be falsely increased. Performed By: #### L 500.4050, L503.6620 ####[facility] [address] [place], [address] Sodium [Moles/Vol] 136 mmol/L Normal 136-145 [facility] Comment on above: Performed By: #### L 500.4050, L503.6620 ####[facility] [address] [place], [address] T PROT 7.6 g/dL Normal 6.4-8.2 [facility] Comment on above: Performed By: #### L 500.4050, L503.6620 ####[facility] [address] [place], [address] Urea nitrogen [Mass/Vol] 21 mg/dL High 7-18 [facility] Comment on above: Performed By: #### L 500.4050, L503.6620 ####[facility] [address] [place], [address] .GFRon 08-16-2024 GFR Non- 45 ml/min/1.73sqm Normal [facility] Comment on above: Result Comment: GFR Population mean for , Non- Americans Ages 20-29 = 116 mL/min/1.73 sq.m. Ages 30-39 = 107 mL/min/1.73 sq.m. Ages 40-49 = 99 mL/min/1.73 sq.m. Ages 50-59 = 93 mL/min/1.73 sq.m. Ages 60-69 = 85 mL/min/1.73 sq.m. Ages 70+ = 75 mL/min/1.73 sq.m. Chronic Kidney Disease: Less than 60 mL/min/1.73 square meters End Stage Renal Disease: Less than 15 mL/min/1.73 square meters Performed By: #### T HYAB #### [address] [address] #### GFR, CMP, FT4, FT3, TSH #### [address] [address] GFR 55 ml/min/1.73sqm Normal [facility] Comment on above: Result Comment: GFR Population mean for , Non- Americans Ages 20-29 = 116 mL/min/1.73 sq.m. Ages 30-39 = 107 mL/min/1.73 sq.m. Ages 40-49 = 99 mL/min/1.73 sq.m. Ages 50-59 = 93 mL/min/1.73 sq.m. Ages 60-69 = 85 mL/min/1.73 sq.m. Ages 70+ = 75 mL/min/1.73 sq.m. Chronic Kidney Disease: Less than 60 mL/min/1.73 square meters End Stage Renal Disease: Less than 15 mL/min/1.73 square meters Performed By: #### T HYAB #### [address] [address] #### GFR, CMP, FT4, FT3, TSH #### [address] [address] CMPon 08-16-2024 Albumin Level 4.0 G/dL Normal 3.4-4.8 [facility] Comment on above: Performed By: #### T HYAB #### [address] [address] #### GFR, CMP, FT4, FT3, TSH #### [address] [address] Albumin/Globulin [Mass ratio] 1.2 {ratio} Normal 1.1-2.5 [facility] Comment on above: Performed By: #### T HYAB #### [place] [address] #### GFR, CMP, FT4, FT3, TSH #### [address] [address] ALP [Catalytic activity/Vol] 100 U/L Normal 40-135 [facility] Comment on above: Performed By: #### T HYAB #### [place] [address] #### GFR, CMP, FT4, FT3, TSH #### [address] [address] ALT [Catalytic activity/Vol] 43 U/L Normal 14-59 [facility] Comment on above: Performed By: #### T HYAB #### [place] [address] #### GFR, CMP, FT4, FT3, TSH #### [address] [address] AST [Catalytic activity/Vol] 25 U/L Normal 10-40 [facility] Comment on above: Performed By: #### T HYAB #### [place] [address] #### GFR, CMP, FT4, FT3, TSH #### [address] [address] Bili Total 1.3 mg/dL High 0.2-1.0 [facility] Comment on above: Result Comment: Use of this assay is not recommended for patients undergoing treatment with eltrombopag due to the potential for falsely elevated results. Performed By: #### T HYAB #### [place] [address] #### GFR, CMP, FT4, FT3, TSH #### [address] [address] BUN/Creatinine Ratio 18 ratio Normal 7-27 [facility] Comment on above: Performed By: #### T HYAB #### [place] [address] #### GFR, CMP, FT4, FT3, TSH #### [address] [address] Calcium [Mass/Vol] 9.4 mg/dL Normal 8.4-10.2 [facility] Comment on above: Performed By: #### T HYAB #### [place] [address] #### GFR, CMP, FT4, FT3, TSH #### [address] [address] Chloride [Moles/Vol] 102 mmol/L Normal 98-107 [facility] Comment on above: Performed By: #### T HYAB #### [place] [address] #### GFR, CMP, FT4, FT3, TSH #### [address] [address] CO2 [Moles/Vol] 29 mmol/L Normal 23-31 [facility] Comment on above: Performed By: #### T HYAB #### [place] [address] #### GFR, CMP, FT4, FT3, TSH #### [address] [address] Creatinine [Mass/Vol] 1.17 mg/dL High 0.55-1.02 [facility] Comment on above: Result Comment: Test ing performed on Siemens Dimension EXL analyzer using a modified kinetic Mala technique. Performed By: #### T HYAB #### [place] [address] #### GFR, CMP, FT4, FT3, TSH #### [address] [address] Electrolyte Balance 8.0 mEq/L Normal 4.0-15.0 [facility] Comment on above: Performed By: #### T HYAB #### [place] [address] #### GFR, CMP, FT4, FT3, TSH #### [address] [address] Globulin 3.3 G/dL Normal [facility] Comment on above: Performed By: #### T HYAB #### [place] [address] #### GFR, CMP, FT4, FT3, TSH #### [address] [address] Glucose [Mass/Vol] 127 mg/dL High 83-110 [facility] Comment on above: Performed By: #### T HYAB #### [place] [address] #### GFR, CMP, FT4, FT3, TSH #### [address] [address] Potassium [Moles/Vol] 5.4 mmol/L High 3.5-5.1 [facility] Comment on above: Performed By: #### T HYAB #### [place] [address] #### GFR, CMP, FT4, FT3, TSH #### [address] [address] Sodium [Moles/Vol] 139 mmol/L Normal 136-145 [facility] Comment on above: Performed By: #### T HYAB #### [place] [address] #### GFR, CMP, FT4, FT3, TSH #### [address] [address] Total Protein 7.3 G/dL Normal 6.4-8.2 [facility] Comment on above: Performed By: #### T HYAB #### [place] [address] #### GFR, CMP, FT4, FT3, TSH #### [address] [address] Urea nitrogen [Mass/Vol] 21 mg/dL High 7-18 [facility] Comment on above: Performed By: #### T HYAB #### [place] [address] #### GFR, CMP, FT4, FT3, TSH #### [address] [address] FT3on 08-16-2024 Free T3 [Mass/Vol] 2.64 pg/mL Normal 2.30-4.00 [facility] Comment on above: Performed By: #### T HYAB #### [place] [address] #### GFR, CMP, FT4, FT3, TSH #### [address] [address] FT4on 08-16-2024 Free T4 [Mass/Vol] 0.73 ng/dL Low 0.76-1.46 [facility] Comment on above: Performed By: #### T HYAB #### [place] [address] #### GFR, CMP, FT4, FT3, TSH #### [address] [address] LABORATORYOrdered By: SYSTEM SYSTEM on 08-16-2024 Albumin BCP dye [Mass/Vol] 4.0 G/dL Normal 3.4 - 4.8 G/dL AO ADM SS Albumin/Globulin [Mass ratio] 1.2 {ratio} Normal 1.1 - 2.5 ratio AO ADM SS ALP [Catalytic activity/Vol] 100 U/L Normal 40 - 135 U/L AO ADM SS ALT With P-5'-P [Catalytic activity/Vol] 43 U/L Normal 14 - 59 U/L AO ADM SS AST With P-5'-P [Catalytic activity/Vol] 25 U/L Normal 10 - 40 U/L AO ADM SS Bilirubin [Mass/Vol] 1.3 mg/dL High 0.2 - 1 .0 mg/dL AO ADM SS Comment on above: Interpretive Data: U se of this assay is not recommended for patients undergoing treatment with eltrombopag due to the potential for falsely elevated results. Calcium [Mass/Vol] 9.4 mg/dL Normal 8.4 - 10. 2 mg/dL AO ADM SS Chloride [Moles/Vol] 102 mmol/L Normal 98 - 10 7 mmol/L AO ADM SS CO2 [Moles/Vol] 29 mmol/L Normal 23 - 31 mmol/L AO ADM SS Creatinine [Mass/Vol] 1.17 mg/dL High 0.55 - 1.02 mg/dL AO ADM SS Comment on above: Interpretive Data: T esting performed on Siemens Dimension EXL analyzer using a modified kinetic Mala technique. Electrolyte Balance 8.0 mEq/L Normal 4.0 - 15 .0 mEq/L AO ADM SS Free T3 [Mass/Vol] 2.64 pg/mL Normal 2.30 - 4. 00 pg/mL AO ADM SS Free T4 [Mass/Vol] 0.73 ng/dL Low 0.76 - 1. 46 ng/dL AO ADM SS GFR/1.73 sq M.predicted among blacks MDRD (S/P/Bld) [Vol rate/Area] 55 ml/min/1.73sqm Invalid Interpretation Code AO Chemistry S Comment on above: Interpretive Data: GFR Population mean for , Non- Americans Ages 20-29 = 116 mL/min/1.73 sq.m. Ages 30-39 = 107 mL/min/1.73 sq.m. Ages 40-49 = 99 mL/min/1.73 sq.m. Ages 50-59 = 93 mL/min/1.73 sq.m. Ages 60-69 = 85 mL/min/1.73 sq.m. Ages 70+ = 75 mL/min/1.73 sq.m. Chronic Kidney Disease: Less than 60 mL/min/1.73 square meters End Stage Renal Disease: Less than 15 mL/min/1.73 square meters GFR/1.73 sq M.predicted among non-blacks MDRD (S/P/Bld) [Vol rate/Area] 45 ml/min/1.73sqm Invalid Interpretation Code AO Chemistry S Comment on above: Interpretive Data: GFR Population mean for , Non- Americans Ages 20-29 = 116 mL/min/1.73 sq.m. Ages 30-39 = 107 mL/min/1.73 sq.m. Ages 40-49 = 99 mL/min/1.73 sq.m. Ages 50-59 = 93 mL/min/1.73 sq.m. Ages 60-69 = 85 mL/min/1.73 sq.m. Ages 70+ = 75 mL/min/1.73 sq.m. Chronic Kidney Disease: Less than 60 mL/min/1.73 square meters End Stage Renal Disease: Less than 15 mL/min/1.73 square meters Globulin 3.3 G/dL Invalid Interpretation Code AO ADM SS Glucose [Mass/Vol] 127 mg/dL High 83 - 110 mg/dL AO ADM SS Potassium [Moles/Vol] 5.4 mmol/L High 3.5 - 5.1 mmol/L AO ADM SS Protein [Mass/Vol] 7.3 G/dL Normal 6.4 - 8.2 G/dL AO ADM SS Sodium [Moles/Vol] 139 mmol/L Normal 136 - 145 mmol/L AO ADM SS Thyroglobulin Ab IA Qn unit/mL Normal 15 - 60 unit/mL AH ADM SS Comment on above: Interpretive Data: * *Note - New Reference Range in effect 20 TPO Ab IA Qn 32 unit/mL Normal 0 - 60 unit/mL AH ADM SS Comment on above: Interpretive Data: * *Note - New Reference Range in effect 20 TSH Qn 3.93 m[IU]/L High 0.36 - 3.74 mcIU/mL AO ADM SS Urea nitrogen [Mass/Vol] 21 mg/dL High 7 - 18 mg/dL AO ADM SS Urea nitrogen/Creatinine [Mass ratio] 18 ratio Normal 7 - 27 ratio AO ADM SS THYABon 08-16-2024 anti-Thyroid Peroxidase 32 units/ml Normal 0-60 [facility] Comment on above: Result Comment: No te - New Reference Range in effect 20 Performed By: #### T HYAB #### [facility] [address] [place] [address] #### GFR, CMP, FT4, FT3, TSH #### [place] [id number] [place], [place] [address] Thyroglobulin Ab Qn [IU]/mL Normal 15-60 [facility] Comment on above: Result Comment: No te - New Reference Range in effect 20 Performed By: #### T HYAB #### [address] [address] #### GFR, CMP, FT4, FT3, TSH #### [place] [address] [place], [place] [address] TSHon 08-16-2024 TSH Qn 3.93 m[IU]/L High 0.36-3.74 [facility] Comment on above: Performed By: #### T HYAB #### [address] [address] #### GFR, CMP, FT4, FT3, TSH #### [place] [id number] [place], [place] [address] 12 Lead EKGon 08-12-2024 12 Lead EKG Normal [facility] Procedure Reporton Procedure Report Normal [facility] Procedure Report Normal [facility] BNP,B-Type NATRIURETIC PEPTI Tony 07-16-2024 Natriuretic peptide B (Bld) [Mass/Vol] 814.9 pg/mL High 0-100 [facility] Comment on above: Performed By: #### L 500.2500, L503.6620 ####[facility] [address] [place], [address] Basic Metabolic Profile (BMP )on 07-16-2024 BUN/CRE 22.0 RATIO High 10-20 [facility] Comment on above: Performed By: #### L 500.2500, L503.6620 ####[facility] [address] [place], [address] CA,Total 9.2 mg/dL Normal 8.5-10.1 [facility] Comment on above: Performed By: #### L 500.2500, L503.6620 ####[facility] [address] [place], [address] Chloride [Moles/Vol] 105 mmol/L Normal 98-107 [facility] Comment on above: Performed By: #### L 500.2500, L503.6620 ####[facility] [address] [place], [address] CO2 [Moles/Vol] 30.0 mmol/L Normal 21.0-32.0 [facility] Comment on above: Performed By: #### L 500.2500, L503.6620 ####[facility] [address] [place], [address] Creatinine [Mass/Vol] 1.23 mg/dL High 0.55-1.02 [facility] Comment on above: Result Comment: The validity of the calculated GFR GFRAA in patients over70 years has not been determined. Clinical correlation isessential. Performed By: #### L 500.2500, L503.6620 ####[facility] [address] [place], [address] EST GFR - AA 55 mL/min Low >60 [facility] Comment on above: Result Comment: Afri can Marshallese GFR Calc Performed By: #### L 500.2500, L503.6620 ####[facility] [address] [place], [address] GAP 5 Normal 5-15 [facility] Comment on above: Performed By: #### L 500.2500, L503.6620 ####[facility] [address] [place], [address] GFR/1.73 sq M.predicted among non-blacks MDRD (S/P/Bld) [Vol rate/Area] 46 mL/min/{1.73_m2} Low >60 [facility] Comment on above: Result Comment: Non- GFR Calc Performed By: #### L 500.2500, L503.6620 ####[facility] [address] [place], [address] Glucose [Mass/Vol] 96 mg/dL Normal 74-106 [facility] Comment on above: Performed By: #### L 500.2500, L503.6620 ####[facility] [address] [place], [address] Potassium [Moles/Vol] 4.5 mmol/L Normal 3.5-5.1 [facility] Comment on above: Performed By: #### L 500.2500, [id number] ####[facility] [address] [place], [address] Sodium [Moles/Vol] 140 mmol/L Normal 136-145 [facility] Comment on above: Performed By: #### L 500.2500, [id number] ####[facility] [address] [place], [address] Urea nitrogen [Mass/Vol] 27 mg/dL High 7-18 [facility] Comment on above: Performed By: #### L 500.2500, [id number] ####[facility] [address] [place], [address] Cardiology Visit Reporton Cardiology Visit Report Normal [facility] Basic Metabolic Profile (BMP )on 07-08-2024 BUN/CRE 28.7 RATIO High 10-20 [facility] Comment on above: Performed By: #### L 500.2500 ####[facility] [address] [place] [place], [address] CA,Total 8.9 mg/dL Normal 8.5-10.1 [facility] Comment on above: Performed By: #### L 500.2500 ####[facility] [address] [place], [address] Chloride [Moles/Vol] 107 mmol/L Normal 98-107 [facility] Comment on above: Performed By: #### L 500.2500 ####[facility] [address] [place], [address] CO2 [Moles/Vol] 27.0 mmol/L Normal 21.0-32.0 [facility] Comment on above: Performed By: #### L 500.2500 ####[facility] [address] [place], [address] Creatinine [Mass/Vol] 1.08 mg/dL High 0.55-1.02 [facility] Comment on above: Result Comment: The validity of the calculated GFR GFRAA in patients over70 years has not been determined. Clinical correlation isessential. Performed By: #### L 500.2500 ####[facility] [address] [place], [address] ECRCL 42.37 ml/min Normal [facility] Comment on above: Performed By: #### L 500.2500 ####[facility] [address] [place], [address] EST GFR - AA 64 mL/min Normal >60 [facility] Comment on above: Result Comment: Afri can Marshallese GFR Calc Performed By: #### L 500.2500 ####[facility] [address] [place], [address] GAP 5 Normal 5-15 [facility] Comment on above: Performed By: #### L 500.2500 ####[facility] [address] [place], [address] GFR/1.73 sq M.predicted among non-blacks MDRD (S/P/Bld) [Vol rate/Area] 53 mL/min/{1.73_m2} Low >60 [facility] Comment on above: Result Comment: Non- GFR Calc Performed By: #### L 500.2500 ####[facility] [address] [place], [address] Glucose [Mass/Vol] 94 mg/dL Normal 74-106 [facility] Comment on above: Performed By: #### L 500.2500 ####[facility] [address] [place], [address] Potassium [Moles/Vol] 4.1 mmol/L Normal 3.5-5.1 [facility] Comment on above: Performed By: #### L 500.2500 ####[facility] [address] [place], [address] Sodium [Moles/Vol] 139 mmol/L Normal 136-145 [facility] Comment on above: Performed By: #### L 500.2500 ####[facility] [address] [place], [address] Urea nitrogen [Mass/Vol] 31 mg/dL High 7-18 [facility] Comment on above: Performed By: #### L 500.2500 ####[facility] [address] [place], [address] Discharge Instructionon 08-0 Discharge Instruction Normal [facility] BNP,B-Type NATRIURETIC PEPTI Tony 07-07-2024 Natriuretic peptide B (Bld) [Mass/Vol] 656.3 pg/mL High 0-100 [facility] Comment on above: Performed By: #### L 503.6620 ####[facility] [address] [place], [address] Comprehensive Metabolic Prof ilon 07-07-2024 Albumin [Mass/Vol] 3.3 g/dL Normal 3.2-5.0 [facility] Comment on above: Performed By: #### L 500.4050 ####[facility] [address] [place], [address] Albumin/Globulin [Mass ratio] 1.0 {ratio} Normal 0.9-2.4 [facility] Comment on above: Performed By: #### L 500.4050 ####[facility] [address] [place], [address] ALK P 114 U/L Normal 45-117 [facility] Comment on above: Performed By: #### L 500.4050 ####[facility] [address] [place], [address] ALT [Catalytic activity/Vol] 82 U/L High 13-56 [facility] Comment on above: Performed By: #### L 500.4050 ####[facility] [address] [place], [address] AST [Catalytic activity/Vol] 41 U/L High 15-37 [facility] Comment on above: Performed By: #### L 500.4050 ####[facility] [address] [place], [address] Bilirubin [Mass/Vol] 1.30 mg/dL High 0.20-1.00 [facility] Comment on above: Result Comment: For patients on eltrombopag therapy, use of Dimension Crocher[place] TBIL is not recommended. Performed By: #### L 500.4050 ####[facility] [address] [place], [address] BUN/CRE 25.5 RATIO High 10-20 [facility] Comment on above: Performed By: #### L 500.4050 ####[facility] [address] [place], [address] CA,Total 9.0 mg/dL Normal 8.5-10.1 [facility] Comment on above: Performed By: #### L 500.4050 ####[facility] [address] [place], [address] Chloride [Moles/Vol] 105 mmol/L Normal 98-107 [facility] Comment on above: Performed By: #### L 500.4050 ####[facility] [address] [place], [address] CO2 [Moles/Vol] 29.0 mmol/L Normal 21.0-32.0 [facility] Comment on above: Performed By: #### L 500.4050 ####[facility] [address] [place], [address] Creatinine [Mass/Vol] 1.10 mg/dL High 0.55-1.02 [facility] Comment on above: Result Comment: The validity of the calculated GFR GFRAA in patients over70 years has not been determined. Clinical correlation isessential. Performed By: #### L 500.4050 ####[facility] [address] [place], [address] ECRCL 41.60 ml/min Normal [facility] Comment on above: Performed By: #### L 500.4050 ####[facility] [address] [place], [address] EST GFR - AA 63 mL/min Normal >60 [facility] Comment on above: Result Comment: Afri can Marshallese GFR Calc Performed By: #### L 500.4050 ####[facility] [address] [place], [address] GAP 5 Normal 5-15 [facility] Comment on above: Performed By: #### L 500.4050 ####[facility] [address] [place], [address] GFR/1.73 sq M.predicted among non-blacks MDRD (S/P/Bld) [Vol rate/Area] 52 mL/min/{1.73_m2} Low >60 [facility] Comment on above: Result Comment: Non- GFR Calc Performed By: #### L 500.4050 ####[facility] [address] [place], [address] Globulin (S) [Mass/Vol] 3.4 g/dL Normal 2.2-4.2 [facility] Comment on above: Performed By: #### L 500.4050 ####[facility] [address] [place], [address] Glucose [Mass/Vol] 99 mg/dL Normal 74-106 [facility] Comment on above: Performed By: #### L 500.4050 ####[facility] [address] [place], [address] Potassium [Moles/Vol] 4.1 mmol/L Normal 3.5-5.1 [facility] Comment on above: Performed By: #### L 500.4050 ####[facility] [address] [place], [address] Sodium [Moles/Vol] 139 mmol/L Normal 136-145 [facility] Comment on above: Performed By: #### L 500.4050 ####[facility] [address] [place], [address] T PROT 6.7 g/dL Normal 6.4-8.2 [facility] Comment on above: Performed By: #### L 500.4050 ####[facility] [address] [place], [address] Urea nitrogen [Mass/Vol] 28 mg/dL High 7-18 [facility] Comment on above: Performed By: #### L 500.4050 ####[facility] [address] [place], [address] Magnesiumon 07-07-2024 Magnesium [Mass/Vol] 2.3 mg/dL Normal 1.6-2.6 [facility] Comment on above: Performed By: #### L 501.5200 ####[facility] [address] [place], [address] Basic Metabolic Profile (BMP )on 07-06-2024 BUN/CRE 31.7 RATIO High 10-20 [facility] Comment on above: Performed By: #### L 500.2500 ####[facility] [address] [place], [address] CA,Total 8.9 mg/dL Normal 8.5-10.1 [facility] Comment on above: Performed By: #### L 500.2500 ####[facility] [address] [place], [address] Chloride [Moles/Vol] 109 mmol/L High 98-107 [facility] Comment on above: Performed By: #### L 500.2500 ####[facility] [address] [place], [address] CO2 [Moles/Vol] 28.0 mmol/L Normal 21.0-32.0 [facility] Comment on above: Performed By: #### L 500.2500 ####[facility] [address] [place], [address] Creatinine [Mass/Vol] 0.95 mg/dL Normal 0.55-1.02 [facility] Comment on above: Result Comment: The validity of the calculated GFR GFRAA in patients over70 years has not been determined. Clinical correlation isessential. Performed By: #### L 500.2500 ####[facility] [address] [place], [address] ECRCL 48.17 ml/min Normal [facility] Comment on above: Performed By: #### L 500.2500 ####[facility] [address] [place], [address] EST GFR - AA 75 mL/min Normal >60 [facility] Comment on above: Result Comment: Afri can Marshallese GFR Calc Performed By: #### L 500.2500 ####[facility] [address] [place], [address] GAP 5 Normal 5-15 [facility] Comment on above: Performed By: #### L 500.2500 ####[facility] [address] [place], [address] GFR/1.73 sq M.predicted among non-blacks MDRD (S/P/Bld) [Vol rate/Area] 62 mL/min/{1.73_m2} Normal >60 [facility] Comment on above: Result Comment: Non- GFR Calc Performed By: #### L 500.2500 ####[facility] [address] [place], [address] Glucose [Mass/Vol] 98 mg/dL Normal 74-106 [facility] Comment on above: Performed By: #### L 500.2500 ####[facility] [address] [place], [address] Potassium [Moles/Vol] 3.9 mmol/L Normal 3.5-5.1 [facility] Comment on above: Performed By: #### L 500.2500 ####[facility] [address] [place], [address] Sodium [Moles/Vol] 142 mmol/L Normal 136-145 [facility] Comment on above: Performed By: #### L 500.2500 ####[facility] [address] [place], [address] Urea nitrogen [Mass/Vol] 30 mg/dL High 7-18 [facility] Comment on above: Performed By: #### L 500.2500 ####[facility] [address] [place], [address] Thyroid Antibodieson 024 TG AB < 1.0 Normal 0.0-0.9 [facility] Comment on above: Result Comment: Thyr oglobulin Antibody measured by Mauri CoulterMethodologyIt should be noted that the presence of thyroglobulinantibodies may not be pathogenic nor diagnostic, especiallyat very low levels. The assay compounding and finishing supervisor has found thatfour percent of individuals without evidence of thyroiddisease or autoimmunity will have positive TgAb levels upto 4 IU/mL.Performed at: [address] [id number] Director: Reinaldo Hdez PhD, Phone: [phone] Performed By: #### L 500.4100, L3300.6750 ####[facility] [address] [place], [address] THYR PEROX AB < 9 Normal 0-34 [facility] Comment on above: Performed By: #### L 500.4100, L3300.6750 ####[facility] [address] [place], [address] Basic Metabolic Profile (BMP )on 07-05-2024 BUN/CRE 27.0 RATIO High 10-20 [facility] Comment on above: Performed By: #### L 500.2500 ####[facility] [address] [place], [address] CA,Total 8.9 mg/dL Normal 8.5-10.1 [facility] Comment on above: Performed By: #### L 500.2500 ####[facility] [address] [place], [address] Chloride [Moles/Vol] 105 mmol/L Normal 98-107 [facility] Comment on above: Performed By: #### L 500.2500 ####[facility] [address] [place], [address] CO2 [Moles/Vol] 31.0 mmol/L Normal 21.0-32.0 [facility] Comment on above: Performed By: #### L 500.2500 ####[facility] [address] [place], [address] Creatinine [Mass/Vol] 1.22 mg/dL High 0.55-1.02 [facility] Comment on above: Result Comment: The validity of the calculated GFR GFRAA in patients over70 years has not been determined. Clinical correlation isessential. Performed By: #### L 500.2500 ####[facility] [address] [place], [address] ECRCL 37.51 ml/min Normal [facility] Comment on above: Performed By: #### L 500.2500 ####[facility] [address] [place], [address] EST GFR - AA 56 mL/min Low >60 [facility] Comment on above: Result Comment: Afri can Marshallese GFR Calc Performed By: #### L 500.2500 ####[facility] [address] [place], [address] GAP 4 Low 5-15 [facility] Comment on above: Performed By: #### L 500.2500 ####[facility] [address] [place], [address] GFR/1.73 sq M.predicted among non-blacks MDRD (S/P/Bld) [Vol rate/Area] 46 mL/min/{1.73_m2} Low >60 [facility] Comment on above: Result Comment: Non- GFR Calc Performed By: #### L 500.2500 ####[facility] [address] [place], [address] Glucose [Mass/Vol] 102 mg/dL Normal 74-106 [facility] Comment on above: Result Comment: Fast ing Glucose result from 100 to 125 mg/dLsuggests IMPAIRED HOMEOSTASIS per A.D.A. criteria. Performed By: #### L 500.2500 ####[facility] [address] [place], [address] Potassium [Moles/Vol] 3.8 mmol/L Normal 3.5-5.1 [facility] Comment on above: Performed By: #### L 500.2500 ####[facility] [address] [place], [address] Sodium [Moles/Vol] 140 mmol/L Normal 136-145 [facility] Comment on above: Performed By: #### L 500.2500 ####[facility] [address] [place], [address] Urea nitrogen [Mass/Vol] 33 mg/dL High 7-18 [facility] Comment on above: Performed By: #### L 500.2500 ####[facility] [address] [place], [address] Consultation - Cardiologyon 07-05-2024 Consultation - Cardiology Normal [facility] CBC-Complete Blood Cnt No Di ffon 07-04-2024 Erythrocyte distribution width (RBC) [Ratio] 13.4 % Normal 11.6-14.6 [facility] Comment on above: Performed By: #### L 500.4050, L100.0500 ####[facility] [address] [place], [address] Hematocrit (Bld) [Volume fraction] 39.9 % Normal 37-47 [facility] Comment on above: Performed By: #### L 500.4050, L100.0500 ####[facility] [address] [place], [address] Hemoglobin (Bld) [Mass/Vol] 12.9 g/dL Normal 12.0-15.0 [facility] Comment on above: Performed By: #### L 500.4050, L100.0500 ####[facility] [address] [place], [address] MCH (RBC) [Entitic mass] 29.3 pg Normal 27.0-32.0 [facility] Comment on above: Performed By: #### L 500.4050, L100.0500 ####[facility] [address] [place], [address] MCHC (RBC) [Mass/Vol] 32.3 g/dL Normal 32-36 [facility] Comment on above: Performed By: #### L 500.4050, L100.0500 ####[facility] [address] [place], [address] MCV (RBC) [Entitic vol] 90.5 fL Normal 81-99 [facility] Comment on above: Performed By: #### L 500.4050, L100.0500 ####[facility] [address] [place], [address] Platelet mean volume (Bld) [Entitic vol] 10.9 fL Normal 6.2-12.0 [facility] Comment on above: Performed By: #### L 500.4050, L100.0500 ####[facility] [address] [place], [address] Platelets (Bld) [#/Vol] 187 10*3/uL Normal 150-450 [facility] Comment on above: Performed By: #### L 500.4050, L100.0500 ####[facility] [address] [place], [address] RBC (Bld) [#/Vol] 4.41 10*6/uL Normal 4.2-5.4 [facility] Comment on above: Performed By: #### L 500.4050, L100.0500 ####[facility] [address] [place], [address] RDW SD 44.6 fl High 35.1-43.9 [facility] Comment on above: Performed By: #### L 500.4050, L100.0500 ####[facility] [address] [place], [address] WBC (Bld) [#/Vol] 5.7 10*3/uL Normal 4.4-11.0 [facility] Comment on above: Performed By: #### L 500.4050, L100.0500 ####[facility] [address] [place], [address] Comprehensive Metabolic Prof ilon 07-04-2024 Albumin [Mass/Vol] 3.3 g/dL Normal 3.2-5.0 [facility] Comment on above: Performed By: #### L 500.4050, L100.0500 ####[facility] [address] [place], [address] Albumin/Globulin [Mass ratio] 1.0 {ratio} Normal 0.9-2.4 [facility] Comment on above: Performed By: #### L 500.4050, L100.0500 ####[facility] [address] [place], [address] ALK P 102 U/L Normal 45-117 [facility] Comment on above: Performed By: #### L 500.4050, L100.0500 ####[facility] [address] [place], [address] ALT [Catalytic activity/Vol] 136 U/L High 13-56 [facility] Comment on above: Performed By: #### L 500.4050, L100.0500 ####[facility] [address] [place], [address] AST [Catalytic activity/Vol] 80 U/L High 15-37 [facility] Comment on above: Performed By: #### L 500.4050, L100.0500 ####[facility] [address] [place], [address] Bilirubin [Mass/Vol] 1.00 mg/dL Normal 0.20-1.00 [facility] Comment on above: Result Comment: For patients on eltrombopag therapy, use of Dimension [place] TBIL is not recommended. Performed By: #### L 500.4050, L100.0500 ####[facility] [address] [place], [address] BUN/CRE 24.5 RATIO High 10-20 [facility] Comment on above: Performed By: #### L 500.4050, L100.0500 ####[facility] [address] [place], [address] CA,Total 8.5 mg/dL Normal 8.5-10.1 [facility] Comment on above: Performed By: #### L 500.4050, L100.0500 ####[facility] [address] [place], [address] Chloride [Moles/Vol] 105 mmol/L Normal 98-107 [facility] Comment on above: Performed By: #### L 500.4050, L100.0500 ####[facility] [address] [place], [address] CO2 [Moles/Vol] 30.0 mmol/L Normal 21.0-32.0 [facility] Comment on above: Performed By: #### L 500.4050, L100.0500 ####[facility] [address] [place], [address] Creatinine [Mass/Vol] 1.10 mg/dL High 0.55-1.02 [facility] Comment on above: Result Comment: The validity of the calculated GFR GFRAA in patients over70 years has not been determined. Clinical correlation isessential. Performed By: #### L 500.4050, L100.0500 ####[facility] [address] [place], [address] ECRCL 41.60 ml/min Normal [facility] Comment on above: Performed By: #### L 500.4050, L100.0500 ####[facility] [address] [place], [address] EST GFR - AA 63 mL/min Normal >60 [facility] Comment on above: Result Comment: Afri can Marshallese GFR Calc Performed By: #### L 500.4050, L100.0500 ####[facility] [address] [place], [address] GAP 7 Normal 5-15 [facility] Comment on above: Performed By: #### L 500.4050, L100.0500 ####[facility] [address] [place], [address] GFR/1.73 sq M.predicted among non-blacks MDRD (S/P/Bld) [Vol rate/Area] 52 mL/min/{1.73_m2} Low >60 [facility] Comment on above: Result Comment: Non- GFR Calc Performed By: #### L 500.4050, L100.0500 ####[facility] [address] [place], [address] Globulin (S) [Mass/Vol] 3.3 g/dL Normal 2.2-4.2 [facility] Comment on above: Performed By: #### L 500.4050, L100.0500 ####[facility] [address] [place], [address] Glucose [Mass/Vol] 99 mg/dL Normal 74-106 [facility] Comment on above: Performed By: #### L 500.4050, L100.0500 ####[facility] [address] [place], [address] Potassium [Moles/Vol] 3.3 mmol/L Low 3.5-5.1 [facility] Comment on above: Performed By: #### L 500.4050, L100.0500 ####[facility] [address] [place], [address] Sodium [Moles/Vol] 142 mmol/L Normal 136-145 [facility] Comment on above: Performed By: #### L 500.4050, L100.0500 ####[facility] [address] [place], [address] T PROT 6.6 g/dL Normal 6.4-8.2 [facility] Comment on above: Performed By: #### L 500.4050, L100.0500 ####[facility] [address] [place], [address] Urea nitrogen [Mass/Vol] 27 mg/dL High 7-18 [facility] Comment on above: Performed By: #### L 500.4050, L100.0500 ####[facility] [address] [place], [address] Magnesiumon 07-04-2024 Magnesium [Mass/Vol] 2.0 mg/dL Normal 1.6-2.6 [facility] Comment on above: Performed By: #### L 501.5200 ####[facility] [address] [place], [address] 12 Lead EKGon 07-03-2024 12 Lead EKG Normal [facility] 12 Lead EKG Normal [facility] Abdomen Limitedon 07-03-2024 Abdomen Limited Normal [facility] BNP,B-Type NATRIURETIC PEPTI Tony 07-03-2024 Natriuretic peptide B (Bld) [Mass/Vol] 741.1 pg/mL High 0-100 [facility] Comment on above: Performed By: #### L 501.5200, L500.4050, L100.0100, L503.6620, L501.4020, L501.9520 ####[facility] [address] [place], [address] CBC W/Diff, Automatedon 08-0 Absolute Lymph 2.05 X10 3/uL Normal 0.83-4.51 [facility] Comment on above: Performed By: #### L 501.5200, L500.4050, L100.0100, L503.6620, L501.4020, L501.9520 ####[facility] [address] [place], [address] Absolute Neut 4.2 X10 3/uL Normal 2.0-7.7 [facility] Comment on above: Performed By: #### L 501.5200, L500.4050, L100.0100, L503.6620, L501.4020, L501.9520 ####[facility] [address] [place], [address] Basophils/100 WBC (Bld) 0.6 % Normal 0-1 [facility] Comment on above: Performed By: #### L 501.5200, L500.4050, L100.0100, L503.6620, L501.4020, L501.9520 ####[facility] [address] [place], [address] Eosinophils/100 WBC (Bld) 1.9 % Normal 0-5 [facility] Comment on above: Performed By: #### L 501.5200, L500.4050, L100.0100, L503.6620, L501.4020, L501.9520 ####[facility] [address] [place], [address] Erythrocyte distribution width (RBC) [Ratio] 13.3 % Normal 11.6-14.6 [facility] Comment on above: Performed By: #### L 501.5200, L500.4050, L100.0100, L503.6620, L501.4020, L501.9520 ####[facility] [address] [place], [address] Hematocrit (Bld) [Volume fraction] 46.4 % Normal 37-47 [facility] Comment on above: Performed By: #### L 501.5200, L500.4050, L100.0100, L503.6620, L501.4020, L501.9520 ####[facility] [address] [place], [address] Hemoglobin (Bld) [Mass/Vol] 14.5 g/dL Normal 12.0-15.0 [facility] Comment on above: Performed By: #### L 501.5200, L500.4050, L100.0100, L503.6620, L501.4020, L501.9520 ####[facility] [address] [place], [address] IG% 0.300 Normal 0.0-0.9 [facility] Comment on above: Result Comment: IG% - Immature Granulocytes (promyelocytes, myelocytes andmetamyelocytes) > 1% indicates that a LEFT SHIFT is Present. Performed By: #### L 501.5200, L500.4050, L100.0100, L503.6620, L501.4020, L501.9520 ####[facility] [address] [place], [address] Lymphocytes/100 WBC (Bld) 29.8 % Normal 19-41 [facility] Comment on above: Performed By: #### L 501.5200, L500.4050, L100.0100, L503.6620, L501.4020, L501.9520 ####[facility] [address] [place], [address] MCH (RBC) [Entitic mass] 28.6 pg Normal 27.0-32.0 [facility] Comment on above: Performed By: #### L 501.5200, L500.4050, L100.0100, L503.6620, L501.4020, L501.9520 ####[facility] [address] [place], [address] MCHC (RBC) [Mass/Vol] 31.3 g/dL Low 32-36 [facility] Comment on above: Performed By: #### L 501.5200, L500.4050, L100.0100, L503.6620, L501.4020, L501.9520 ####[facility] [address] [place], [address] MCV (RBC) [Entitic vol] 91.5 fL Normal 81-99 [facility] Comment on above: Performed By: #### L 501.5200, L500.4050, L100.0100, L503.6620, L501.4020, L501.9520 ####[facility] [address] [place], [address] Monocytes/100 WBC (Bld) 6.4 % Normal 0-10 [facility] Comment on above: Performed By: #### L 501.5200, L500.4050, L100.0100, L503.6620, L501.4020, L501.9520 ####[facility] [address] [place], [address] Neutrophils/100 WBC (Bld) 61.0 % Normal 47-70 [facility] Comment on above: Performed By: #### L 501.5200, L500.4050, L100.0100, L503.6620, L501.4020, L501.9520 ####[facility] [address] [place], [address] Nucleated RBC (Bld) [#/Vol] 0 10*3/uL Normal 0-5 [facility] Comment on above: Performed By: #### L 501.5200, L500.4050, L100.0100, L503.6620, L501.4020, L501.9520 ####[facility] [address] [place], [address] Platelet mean volume (Bld) [Entitic vol] 10.8 fL Normal 6.2-12.0 [facility] Comment on above: Performed By: #### L 501.5200, L500.4050, L100.0100, L503.6620, L501.4020, L501.9520 ####[facility] [address] [place], [address] Platelets (Bld) [#/Vol] 220 10*3/uL Normal 150-450 [facility] Comment on above: Performed By: #### L 501.5200, L500.4050, L100.0100, L503.6620, L501.4020, L501.9520 ####[facility] [address] [place], [address] RBC (Bld) [#/Vol] 5.07 10*6/uL Normal 4.2-5.4 [facility] Comment on above: Performed By: #### L 501.5200, L500.4050, L100.0100, L503.6620, L501.4020, L501.9520 ####[facility] [address] [place], [address] RDW SD 44.5 fl High 35.1-43.9 [facility] Comment on above: Performed By: #### L 501.5200, L500.4050, L100.0100, L503.6620, L501.4020, L501.9520 ####[facility] [address] [place], [address] WBC (Bld) [#/Vol] 6.9 10*3/uL Normal 4.4-11.0 [facility] Comment on above: Performed By: #### L 501.5200, L500.4050, L100.0100, L503.6620, L501.4020, L501.9520 ####[facility] [address] [place], [address] Chest 1 View (Portable)on Chest 1 View (Portable) Normal [facility] Comprehensive Metabolic Prof ilon 07-03-2024 Albumin [Mass/Vol] 3.7 g/dL Normal 3.2-5.0 [facility] Comment on above: Order Comment: 'TROP ' Serial specimen #1, #2 or #3: 1 Performed By: #### L 501.5200, L500.4050, L100.0100, L503.6620, L501.4020, L501.9520 ####[facility] [address] [place], [address] Albumin/Globulin [Mass ratio] 0.9 {ratio} Normal 0.9-2.4 [facility] Comment on above: Order Comment: 'TROP ' Serial specimen #1, #2 or #3: 1 Performed By: #### L 501.5200, L500.4050, L100.0100, L503.6620, L501.4020, L501.9520 ####[facility] [address] [place], [address] ALK P 125 U/L High 45-117 [facility] Comment on above: Order Comment: 'TROP ' Serial specimen #1, #2 or #3: 1 Performed By: #### L 501.5200, L500.4050, L100.0100, L503.6620, L501.4020, L501.9520 ####[facility] [address] [place], [address] ALT [Catalytic activity/Vol] 192 U/L High 13-56 [facility] Comment on above: Order Comment: 'TROP ' Serial specimen #1, #2 or #3: 1 Performed By: #### L 501.5200, L500.4050, L100.0100, L503.6620, L501.4020, L501.9520 ####[facility] [address] [place], [address] AST [Catalytic activity/Vol] 185 U/L High 15-37 [facility] Comment on above: Order Comment: 'TROP ' Serial specimen #1, #2 or #3: 1 Performed By: #### L 501.5200, L500.4050, L100.0100, L503.6620, L501.4020, L501.9520 ####[facility] [address] [place], [address] Bilirubin [Mass/Vol] 1.30 mg/dL High 0.20-1.00 [facility] Comment on above: Order Comment: 'TROP ' Serial specimen #1, #2 or #3: 1 Result Comment: For patients on eltrombopag therapy, use of Dimension [place] TBIL is not recommended. Performed By: #### L 501.5200, L500.4050, L100.0100, L503.6620, L501.4020, L501.9520 ####[facility] [address] [place], [address] BUN/CRE 18.4 RATIO Normal 10-20 [facility] Comment on above: Order Comment: 'TROP ' Serial specimen #1, #2 or #3: 1 Performed By: #### L 501.5200, L500.4050, L100.0100, L503.6620, L501.4020, L501.9520 ####[facility] [address] [place], [address] CA,Total 9.2 mg/dL Normal 8.5-10.1 [facility] Comment on above: Order Comment: 'TROP ' Serial specimen #1, #2 or #3: 1 Performed By: #### L 501.5200, L500.4050, L100.0100, L503.6620, L501.4020, L501.9520 ####[facility] [address] [place], [address] Chloride [Moles/Vol] 111 mmol/L High 98-107 [facility] Comment on above: Order Comment: 'TROP ' Serial specimen #1, #2 or #3: 1 Performed By: #### L 501.5200, L500.4050, L100.0100, L503.6620, L501.4020, L501.9520 ####[facility] [address] [place], [address] CO2 [Moles/Vol] 27.0 mmol/L Normal 21.0-32.0 [facility] Comment on above: Order Comment: 'TROP ' Serial specimen #1, #2 or #3: 1 Performed By: #### L 501.5200, L500.4050, L100.0100, L503.6620, L501.4020, L501.9520 ####[facility] [address] [place], [address] Creatinine [Mass/Vol] 1.25 mg/dL High 0.55-1.02 [facility] Comment on above: Order Comment: 'TROP ' Serial specimen #1, #2 or #3: 1 Result Comment: The validity of the calculated GFR GFRAA in patients over70 years has not been determined. Clinical correlation isessential. Performed By: #### L 501.5200, L500.4050, L100.0100, L503.6620, L501.4020, L501.9520 ####[facility] [address] [place], [address] ECRCL 36.61 ml/min Normal [facility] Comment on above: Order Comment: 'TROP ' Serial specimen #1, #2 or #3: 1 Performed By: #### L 501.5200, L500.4050, L100.0100, L503.6620, L501.4020, L501.9520 ####[facility] [address] [place], [address] EST GFR - AA 54 mL/min Low >60 [facility] Comment on above: Order Comment: 'TROP ' Serial specimen #1, #2 or #3: 1 Result Comment: Afri can Marshallese GFR Calc Performed By: #### L 501.5200, L500.4050, L100.0100, L503.6620, L501.4020, L501.9520 ####[facility] [address] [place], [address] GAP 4 Low 5-15 [facility] Comment on above: Order Comment: 'TROP ' Serial specimen #1, #2 or #3: 1 Performed By: #### L 501.5200, L500.4050, L100.0100, L503.6620, L501.4020, L501.9520 ####[facility] [address] [place], [address] GFR/1.73 sq M.predicted among non-blacks MDRD (S/P/Bld) [Vol rate/Area] 45 mL/min/{1.73_m2} Low >60 [facility] Comment on above: Order Comment: 'TROP ' Serial specimen #1, #2 or #3: 1 Result Comment: Non- GFR Calc Performed By: #### L 501.5200, L500.4050, L100.0100, L503.6620, L501.4020, L501.9520 ####[facility] [address] [place], [address] Globulin (S) [Mass/Vol] 3.9 g/dL Normal 2.2-4.2 [facility] Comment on above: Order Comment: 'TROP ' Serial specimen #1, #2 or #3: 1 Performed By: #### L 501.5200, L500.4050, L100.0100, L503.6620, L501.4020, L501.9520 ####[facility] [address] [place], [address] Glucose [Mass/Vol] 101 mg/dL Normal 74-106 [facility] Comment on above: Order Comment: 'TROP ' Serial specimen #1, #2 or #3: 1 Result Comment: Fast ing Glucose result from 100 to 125 mg/dLsuggests IMPAIRED HOMEOSTASIS per A.D.A. criteria. Performed By: #### L 501.5200, L500.4050, L100.0100, L503.6620, L501.4020, L501.9520 ####[facility] [address] [place], [address] Potassium [Moles/Vol] 4.1 mmol/L Normal 3.5-5.1 [facility] Comment on above: Order Comment: 'TROP ' Serial specimen #1, #2 or #3: 1 Performed By: #### L 501.5200, L500.4050, L100.0100, L503.6620, L501.4020, L501.9520 ####[facility] [address] [place], [address] Sodium [Moles/Vol] 142 mmol/L Normal 136-145 [facility] Comment on above: Order Comment: 'TROP ' Serial specimen #1, #2 or #3: 1 Performed By: #### L 501.5200, L500.4050, L100.0100, L503.6620, L501.4020, L501.9520 ####[facility] [address] [place], [address] T PROT 7.6 g/dL Normal 6.4-8.2 [facility] Comment on above: Order Comment: 'TROP ' Serial specimen #1, #2 or #3: 1 Performed By: #### L 501.5200, L500.4050, L100.0100, L503.6620, L501.4020, L501.9520 ####[facility] [address] [place], [address] Urea nitrogen [Mass/Vol] 23 mg/dL High 7-18 [facility] Comment on above: Order Comment: 'TROP ' Serial specimen #1, #2 or #3: 1 Performed By: #### L 501.5200, L500.4050, L100.0100, L503.6620, L501.4020, L501.9520 ####[facility] [address] [place], [address] Echo Completeon 07-03-2024 Echo Complete Normal [facility] Emergency Department Summary on 07-03-2024 Emergency Department Summary Normal [facility] H AND P Exam - Hospitaliston 07-03-2024 H&P Exam - Hospitalist Normal [facility] Hemoglobin A1con 07-03-2024 HbA1c (Bld) [Mass fraction] 5.5 % Normal 3.8-5.6 [facility] Comment on above: Result Comment: Norm al < 5.7 % Prediabetic 5.7 - 6.4 % Diabetic >or= 6.5 % Please note range changes. Performed By: #### L 501.9985, L506.0400 ####[facility] [address] [place], [address] L501.4020on 07-03-2024 TROPONIN-I HS 26 pg/mL Normal 3.0-54.0 [facility] Comment on above: Order Comment: 'TROP ' Serial specimen #1, #2 or #3: 1 Result Comment: Plea se Note: New Test Units and Gender Specific Reference Ranges. For more information see Policy Stat Procedure [place] High Sensitivity Troponin (TNIH) and attachments. Performed By: #### L 501.5200, L500.4050, L100.0100, L503.6620, L501.4020, L501.9520 ####[facility] [address] [place], [address] Lipid Profileon 07-03-2024 Cholesterol [Mass/Vol] 190 mg/dL Normal 200 [facility] Comment on above: Result Comment: <200 mg/dL Desirable 200-240 mg/dL Borderline >240 mg/dL High Risk Performed By: #### L 500.4100, L3300.6750 ####[facility] [address] [place], [address] Cholesterol in HDL [Mass/Vol] 83 mg/dL Normal [facility] Comment on above: Result Comment: The drugs N-Acetylcysteine and Metamizole may falselydepress this assay. Reference Range HDL <40 mg/dL Low HDL Cholesterol HDL >or= 60 mg/dL High HDL Cholesterol Performed By: #### L 500.4100, L3300.6750 ####[facility] [address] [place], [address] Cholesterol in LDL [Mass/Vol] 86 mg/dL Normal 0-130 [facility] Comment on above: Performed By: #### L 500.4100, L3300.6750 ####[facility] [address] [place], [address] Cholesterol in VLDL [Mass/Vol] 21 mg/dL Normal 5-40 [facility] Comment on above: Performed By: #### L 500.4100, L3300.6750 ####[facility] [address] [place], [address] Triglyceride [Mass/Vol] 107 mg/dL Normal [facility] Comment on above: Result Comment: The drugs N-Acetylcysteine and Metamizole may falselydepress this assay.Serum Triglycerides Reference Interval Normal <150 mg/dL Borderline high 150 - 199 mg/dL High 200 - 499 mg/dL Very High > or = 500 mg/dL Performed By: #### L 500.4100, L3300.6750 ####[facility] [address] [place], [address] M100.019on 07-03-2024 M100.019 Normal Reference Ran ge = Negative GeneXpert Instrument, PCR method SARS-CoV-2 (COVID 19) Negative Normal [facility] Comment on above: Performed By: #### M 100.019 ####[facility] [address] [place], [address] Magnesiumon 07-03-2024 Magnesium [Mass/Vol] 2.0 mg/dL Normal 1.6-2.6 [facility] Comment on above: Order Comment: 'TROP ' Serial specimen #1, #2 or #3: 1 Performed By: #### L 501.5200, L500.4050, L100.0100, L503.6620, L501.4020, L501.9520 ####[facility] [address] [place], [address] RESPIRATORY PANEL MOLECULARo n 07-03-2024 RP PANEL Normal [facility] Comment on above: Performed By: #### M 100.638 ####[facility] [address] [place], [address] T4 Free Directon 07-03-2024 T4 FREE DIRECT 0.79 ng/dL Normal 0.76-1.46 [facility] Comment on above: Performed By: #### L 501.9985, L506.0400 ####[facility] [address] [place], [address] Thyroid Stim Hormone (TSH)on 07-03-2024 TSH 8.94 uIU/mL High 0.358-3.74 [facility] Comment on above: Order Comment: 'TROP ' Serial specimen #1, #2 or #3: 1 Performed By: #### L 501.5200, L500.4050, L100.0100, L503.6620, L501.4020, L501.9520 ####[facility] [address] [place], [address] Urinalysis, Completeon 07-03 CAST,HYALINE 0-5 SEEN Normal 0-5 [facility] Comment on above: Order Comment: CLEAN CATCH Performed By: #### L 400.0001 ####[facility] [address] [place], [address] BACTERIA 0 SEEN Normal None Seen [facility] Comment on above: Order Comment: CLEAN CATCH Performed By: #### L 400.0001 ####[facility] [address] [place], [address] EPI,SQUAMOUS 0 SEEN Normal 5-10 [facility] Comment on above: Order Comment: CLEAN CATCH Performed By: #### L 400.0001 ####[facility] [address] [place], [address] Mucus Ql (Urine sed) 0 SEEN Normal [facility] Comment on above: Order Comment: CLEAN CATCH Performed By: #### L 400.0001 ####[facility] [address] [place], [address] RBC 0 SEEN Normal 0-5 [facility] Comment on above: Order Comment: CLEAN CATCH Performed By: #### L 400.0001 ####[facility] [address] [place], [address] WBC 0 SEEN Normal 0-5 [facility] Comment on above: Order Comment: CLEAN CATCH Performed By: #### L 400.0001 ####[facility] [address] [place], [address] .ANATon 04-20-2024 JACK Pattern 1 Homogeneous Normal [facility] ([place]) Comment on above: Result Comment: At [facility], an JACK titer of less than 160 is not considered suggestive of significant rheumatoid disease. If clinical suspicion is high, suggest repeat testing in 1-2 months. Performed By: #### C BC, ESR, GFR, ADIFF, LIPID, CMP, ANEU, CRP #### [address] [address] #### GENIE, JACK #### [address] [address] JACK Titer 1 80 Normal [facility] ([place]) Comment on above: Performed By: #### C BC, ESR, GFR, ADIFF, LIPID, CMP, ANEU, CRP #### [address] [address] #### GENIE, JACK #### [address] [address] ANAon 04-20-2024 JACK See Titer Normal Neg 40 [facility] ([place]) Comment on above: Result Comment: JACK Screen and Titer methodology is an immunofluorescent technique utilizing Hep2 Substrate. Performed By: #### C BC, ESR, GFR, ADIFF, LIPID, CMP, ANEU, CRP #### [address] [address] #### GENIE, JACK #### [address] [address] .Auto Diffon 04-16-2024 Basophil, Absolute 0.0 10 3/mcL Normal 0.0-0.2 [facility] ([place]) Comment on above: Performed By: #### C BC, ESR, GFR, ADIFF, LIPID, CMP, ANEU, CRP #### [place] [address] #### GENIE, JACK #### [address] [address] Basophils/100 WBC (Bld) 0.4 % Normal 0.0-2.5 [facility] ([place]) Comment on above: Performed By: #### C BC, ESR, GFR, ADIFF, LIPID, CMP, ANEU, CRP #### [place] [address] #### GENIE, JACK #### [place] [address] Eosinophil, Absolute 0.2 10 3/mcL Normal 0.0-0.4 [facility] ([place]) Comment on above: Performed By: #### C BC, ESR, GFR, ADIFF, LIPID, CMP, ANEU, CRP #### [place] [address] #### GENIE, JACK #### [address] [address] Eosinophils/100 WBC (Bld) 4.2 % Normal 0.0-7.0 [facility] ([place]) Comment on above: Performed By: #### C BC, ESR, GFR, ADIFF, LIPID, CMP, ANEU, CRP #### [place] [address] #### GENIE, JACK #### [address] [address] Lymphocyte, Absolute 2.5 10 3/mcL Normal 0.8-3.9 [facility] ([place]) Comment on above: Performed By: #### C BC, ESR, GFR, ADIFF, LIPID, CMP, ANEU, CRP #### [address] [address] #### GENIE, JACK #### [address] [address] Lymphocytes/100 WBC (Bld) 43.6 % Normal 10.0-50.0 [facility] ([place]) Comment on above: Performed By: #### C BC, ESR, GFR, ADIFF, LIPID, CMP, ANEU, CRP #### [address] [address] #### GENIE, JACK #### [address] [address] Monocyte, Absolute 0.5 10 3/mcL Normal 0.2-1.0 [facility] ([place]) Comment on above: Performed By: #### C BC, ESR, GFR, ADIFF, LIPID, CMP, ANEU, CRP #### [place] [address] #### GENIE, JACK #### [address] [address] Monocytes/100 WBC (Bld) 8.2 % Normal 1.7-13.0 [facility] ([place]) Comment on above: Performed By: #### C BC, ESR, GFR, ADIFF, LIPID, CMP, ANEU, CRP #### [address] [address] #### GENIE, JACK #### [address] [address] Neutrophils/100 WBC (Bld) 43.6 % Normal 37.0-80.0 [facility] ([place]) Comment on above: Performed By: #### C BC, ESR, GFR, ADIFF, LIPID, CMP, ANEU, CRP #### [address] [address] #### GENIE, JACK #### [address] [address] .GFRon 04-16-2024 GFR 72 ml/min/1.73sqm Normal [facility] ([place]) Comment on above: Result Comment: GFR Population mean for , Non- Americans Ages 20-29 = 116 mL/min/1.73 sq.m. Ages 30-39 = 107 mL/min/1.73 sq.m. Ages 40-49 = 99 mL/min/1.73 sq.m. Ages 50-59 = 93 mL/min/1.73 sq.m. Ages 60-69 = 85 mL/min/1.73 sq.m. Ages 70+ = 75 mL/min/1.73 sq.m. Chronic Kidney Disease: Less than 60 mL/min/1.73 square meters End Stage Renal Disease: Less than 15 mL/min/1.73 square meters Performed By: #### C BC, ESR, GFR, ADIFF, LIPID, CMP, ANEU, CRP #### [address] [address] #### GENIE, JACK #### [address] [address] GFR Non- 59 ml/min/1.73sqm Normal [facility] ([place]) Comment on above: Result Comment: GFR Population mean for , Non- Americans Ages 20-29 = 116 mL/min/1.73 sq.m. Ages 30-39 = 107 mL/min/1.73 sq.m. Ages 40-49 = 99 mL/min/1.73 sq.m. Ages 50-59 = 93 mL/min/1.73 sq.m. Ages 60-69 = 85 mL/min/1.73 sq.m. Ages 70+ = 75 mL/min/1.73 sq.m. Chronic Kidney Disease: Less than 60 mL/min/1.73 square meters End Stage Renal Disease: Less than 15 mL/min/1.73 square meters Performed By: #### C BC, ESR, GFR, ADIFF, LIPID, CMP, ANEU, CRP #### [address] [address] #### GENIE, JACK #### [address] [address] .NEUABSon 04-16-2024 Neutrophil, Absolute 2.5 10 3/mcL Low 2.9-6.2 [facility] ([place]) Comment on above: Performed By: #### C BC, ESR, GFR, ADIFF, LIPID, CMP, ANEU, CRP #### [place] [address] #### GENIE, JACK #### [address] [address] CBCon 04-16-2024 Erythrocyte distribution width (RBC) [Ratio] 13.2 % Normal 11.5-14.5 [facility] ([place]) Comment on above: Performed By: #### C BC, ESR, GFR, ADIFF, LIPID, CMP, ANEU, CRP #### [place] [address] #### GENIE, JACK #### [place] [address] Hematocrit (Bld) [Volume fraction] 39.3 % Normal 37.0-47.0 [facility] ([place]) Comment on above: Performed By: #### C BC, ESR, GFR, ADIFF, LIPID, CMP, ANEU, CRP #### [place] [address] #### GENIE, JACK #### [place] [address] Hgb 13.5 G/dL Normal 12.0-16.0 [facility] ([place]) Comment on above: Performed By: #### C BC, ESR, GFR, ADIFF, LIPID, CMP, ANEU, CRP #### [place] [address] #### GENIE, JACK #### [place] [address] MCH (RBC) [Entitic mass] 30.2 pg Normal 27.0-31.2 [facility] ([place]) Comment on above: Performed By: #### C BC, ESR, GFR, ADIFF, LIPID, CMP, ANEU, CRP #### [place] [address] #### GENIE, JACK #### [place] [address] MCHC 34.4 G/dL Normal 33.0-37.0 [facility] ([place]) Comment on above: Performed By: #### C BC, ESR, GFR, ADIFF, LIPID, CMP, ANEU, CRP #### [place] [address] #### GENIE, JACK #### [place] [address] MCV (RBC) [Entitic vol] 87.9 fL Normal 80.0-94.0 [facility] ([place]) Comment on above: Performed By: #### C BC, ESR, GFR, ADIFF, LIPID, CMP, ANEU, CRP #### [place] [address] #### GENIE, JACK #### [place] [address] Platelet 171 10 3/mcL Normal 130-400 [facility] ([place]) Comment on above: Performed By: #### C BC, ESR, GFR, ADIFF, LIPID, CMP, ANEU, CRP #### [place] [address] #### GENIE, JACK #### [place] [address] Platelet mean volume (Bld) [Entitic vol] 8.9 fL Normal 7.4-10.4 [facility] ([place]) Comment on above: Performed By: #### C BC, ESR, GFR, ADIFF, LIPID, CMP, ANEU, CRP #### [place] [address] #### GENIE, JACK #### [place] [address] RBC 4.47 10 6/mcL Normal 4.20-5.40 [facility] ([place]) Comment on above: Performed By: #### C BC, ESR, GFR, ADIFF, LIPID, CMP, ANEU, CRP #### [place] [id number] #### GENIE, JACK #### [place] [address] WBC 5.7 10 3/mcL Normal 4.6-10.8 [facility] ([place]) Comment on above: Performed By: #### C BC, ESR, GFR, ADIFF, LIPID, CMP, ANEU, CRP #### [address] [id number] #### GENIE, JACK #### [address] [address] CMPon 04-16-2024 Albumin Level 3.8 G/dL Normal 3.4-4.8 [facility] ([place]) Comment on above: Performed By: #### C BC, ESR, GFR, ADIFF, LIPID, CMP, ANEU, CRP #### [place] [id number] #### GENIE, JACK #### [place] [address] Albumin/Globulin [Mass ratio] 1.2 {ratio} Normal 1.1-2.5 [facility] ([place]) Comment on above: Performed By: #### C BC, ESR, GFR, ADIFF, LIPID, CMP, ANEU, CRP #### [place] [address] #### GENIE, JACK #### [address] [address] ALP [Catalytic activity/Vol] 89 U/L Normal 40-135 [facility] ([place]) Comment on above: Performed By: #### C BC, ESR, GFR, ADIFF, LIPID, CMP, ANEU, CRP #### [place] [address] #### GENIE, JACK #### [address] [address] ALT [Catalytic activity/Vol] 28 U/L Normal 14-59 [facility] ([place]) Comment on above: Performed By: #### C BC, ESR, GFR, ADIFF, LIPID, CMP, ANEU, CRP #### [place] [address] #### GENIE, JACK #### [facility] [address] [place], [place] [address] AST [Catalytic activity/Vol] 24 U/L Normal 10-40 [facility] ([place]) Comment on above: Performed By: #### C BC, ESR, GFR, ADIFF, LIPID, CMP, ANEU, CRP #### [place] [address] #### GENIE, JACK #### [address] [address] Bili Total 1.4 mg/dL High 0.2-1.0 [facility] ([place]) Comment on above: Result Comment: Use of this assay is not recommended for patients undergoing treatment with eltrombopag due to the potential for falsely elevated results. Performed By: #### C BC, ESR, GFR, ADIFF, LIPID, CMP, ANEU, CRP #### [place] [address] #### GENIE, JACK #### [place] [address] BUN/Creatinine Ratio 18 ratio Normal 7-27 [facility] ([place]) Comment on above: Performed By: #### C BC, ESR, GFR, ADIFF, LIPID, CMP, ANEU, CRP #### [place] [address] #### GENIE, JACK #### [address] [address] Calcium [Mass/Vol] 9.2 mg/dL Normal 8.4-10.2 [facility] ([place]) Comment on above: Performed By: #### C BC, ESR, GFR, ADIFF, LIPID, CMP, ANEU, CRP #### [place] [address] #### GENIE, JACK #### [place] [id number] Chloride [Moles/Vol] 105 mmol/L Normal 98-107 [facility] ([place] Comment on above: Performed By: #### C BC, ESR, GFR, ADIFF, LIPID, CMP, ANEU, CRP #### [place] [address] #### GENIE, JACK #### [address] [address] CO2 [Moles/Vol] 31 mmol/L Normal 23-31 [facility] ([place] Comment on above: Performed By: #### C BC, ESR, GFR, ADIFF, LIPID, CMP, ANEU, CRP #### [address] [address] #### GENIE, JACK #### [address] [address] Creatinine [Mass/Vol] 0.93 mg/dL Normal 0.55-1.02 [facility] ([place]) Comment on above: Performed By: #### C BC, ESR, GFR, ADIFF, LIPID, CMP, ANEU, CRP #### [address] [address] #### GENIE, JACK #### [address] [address] Electrolyte Balance 8.0 mEq/L Normal 4.0-15.0 [facility] ([place]) Comment on above: Performed By: #### C BC, ESR, GFR, ADIFF, LIPID, CMP, ANEU, CRP #### [place] [address] #### GENIE, JACK #### [address] [address] Globulin 3.2 G/dL Normal [facility] ([place] Comment on above: Performed By: #### C BC, ESR, GFR, ADIFF, LIPID, CMP, ANEU, CRP #### [address] [address] #### GENIE, JACK #### [address] [address] Glucose [Mass/Vol] 87 mg/dL Normal 83-110 [facility] ([place]) Comment on above: Performed By: #### C BC, ESR, GFR, ADIFF, LIPID, CMP, ANEU, CRP #### [place] [address] #### GENIE, JACK #### [address] [address] Potassium [Moles/Vol] 5.1 mmol/L Normal 3.5-5.1 [facility] ([place]) Comment on above: Performed By: #### C BC, ESR, GFR, ADIFF, LIPID, CMP, ANEU, CRP #### [place] [address] #### GENEI, JACK #### [place] [address] Sodium [Moles/Vol] 144 mmol/L Normal 136-145 [facility] ([place] Comment on above: Performed By: #### C BC, ESR, GFR, ADIFF, LIPID, CMP, ANEU, CRP #### [place] [address] #### GENIE, JACK #### [place] [address] Total Protein 7.0 G/dL Normal 6.4-8.2 [facility] ([place] Comment on above: Performed By: #### C BC, ESR, GFR, ADIFF, LIPID, CMP, ANEU, CRP #### [place] [address] #### GENIE, JACK #### [place] [address] Urea nitrogen [Mass/Vol] 17 mg/dL Normal 7-18 [facility] ([place] Comment on above: Performed By: #### C BC, ESR, GFR, ADIFF, LIPID, CMP, ANEU, CRP #### [place] [address] #### GENIE, JACK #### [place] [address] CRPon 04-16-2024 C-Reactive Protein 0.2 mg/dL Normal 0.0-0.3 [facility] ([place] Comment on above: Performed By: #### C BC, ESR, GFR, ADIFF, LIPID, CMP, ANEU, CRP #### [place] [address] #### GENIE, JACK #### [facility] [address] [place] [address] ESRon 04-16-2024 Erythrocyte Sed Rate 9 mm/hr Normal 0-30 [facility] ([place]) Comment on above: Performed By: #### C BC, ESR, GFR, ADIFF, LIPID, CMP, ANEU, CRP #### [place] [id number] [place], [place] [address] #### GENIE, JACK #### [facility] [address] [place] [address] Absolute lymphocyte countOrd ered By: Lesli Puentes on 01-23-2024 Lymphocytes Auto (Unsp spec) [#/Vol] 1.22 10*3/uL 0.83-4.51 [facility] Automated lymphocyte count a s percentage of total leukocytesOrdered By: Lesli Puentes on 01-23-2024 Lymphocytes/100 WBC Auto (Unsp spec) 26.6 % 19-41 [facility] Basophil percentageOrdered B y: Lesli Puentes on 01-23-2024 Basophils/100 WBC (Bld) 0.4 % 0-1 [facility] Bilirubin [Mass/Vol] 1.10 mg/dL 0.20-1.00 [facility] Comment on above: For patients on eltr ombopag therapy, use of Dimension [place] TBIL is not recommended. Chloride [Moles/Vol] 107 mmol/L 98-107 [facility] Eosinophils/100 WBC (Bld) 4.6 % 0-5 [facility] Glucose [Mass/Vol] 95 mg/dL 74-106 [facility] Hemoglobin (Bld) [Mass/Vol] 14.2 g/dL 12.0-15.0 [facility] Monocytes/100 WBC (Bld) 7.4 % 0-10 [facility] Neutrophils (Bld) [#/Vol] 2.8 10*3/uL 2.0-7.7 [facility] Neutrophils/100 WBC (Bld) 60.8 % 47-70 [facility] Potassium [Moles/Vol] 4.2 mmol/L 3.5-5.1 [facility] Protein [Mass/Vol] 7.2 g/dL 6.4-8.2 [facility] Sodium [Moles/Vol] 141 mmol/L 136-145 [facility] WBC (Bld) [#/Vol] 4.6 10*3/uL 4.4-11.0 [facility] Determination of erythrocyte mean corpuscular volume (MCV)Ordered By: Lesli Puentes on 01-23-2024 MCV (RBC) [Entitic vol] 93.5 fL 81-99 [facility] Erythrocyte distribution wid th ratioOrdered By: [place] Reji on 01-23-2024 Erythrocyte distribution width (RBC) [Ratio] 13.1 % 11.6-14.6 [facility] Erythrocyte distribution wid th standard deviationOrdered By: Leslishanika Puentes on 01-23-2024 Erythrocyte distribution width (RBC) [Entitic vol] 44.9 fL 35.1-43.9 [facility] Hematocrit Auto (Bld) [Volum e fraction]Ordered By: Leslishanika Puentes on 01-23-2024 Hematocrit (Bld) [Volume fraction] 44.3 % 37-47 [facility] Immature granulocytes/100 WB C Auto (Bld)Ordered By: Leslishanika Puentes on 01-23-2024 Immature granulocytes/100 WBC (Bld) 0.200 % 0.0-0.9 [facility] Comment on above: IG% - Immature Granu locytes (promyelocytes, myelocytes and metamyelocytes) > 1% indicates that a LEFT SHIFT is Present. Laboratory - Chemistry and C hemistry - challengeOrdered By: Lesli Puentes on 01-23-2024 Albumin/Globulin [Mass ratio] 1.0 {ratio} 0.9-2.4 [facility] ALP [Catalytic activity/Vol] 83 U/L 45-117 [facility] ALT [Catalytic activity/Vol] 25 U/L 13-56 [facility] CO2 [Moles/Vol] 30.0 mmol/L 21.0-32.0 [facility] Globulin (S) [Mass/Vol] 3.6 g/dL 2.2-4.2 [facility] Urea nitrogen/Creatinine [Mass ratio] 18.4 mg/mg 10-20 [facility] Laboratory - Hematology and Cell countsOrdered By: Lesli Puentes on 01-23-2024 MCH (RBC) [Entitic mass] 30.0 pg 27.0-32.0 [facility] MCHC (RBC) [Mass/Vol] 32.1 g/dL 32-36 [facility] Nucleated RBC/100 WBC (Bld) [Ratio] 0 % 0-5 [facility] Platelet mean volume (Bld) [Entitic vol] 11.1 fL 6.2-12.0 [facility] Platelets (Bld) [#/Vol] 199 10*3/uL 150-450 [facility] No Panel InformationOrdered By: Lesli Puentes on 01-23-2024 Estimated GFR (MDRD) Amer 68 mL/min >60 [facility] Comment on above: GFR Calc Estimated GFR (MDRD) Non-Af Amer 56 mL/min >60 [facility] Comment on above: Non- GFR Calc RBC Auto (Bld) [#/Vol]Ordere d By: Lesli Puentes on 01-23-2024 RBC (Bld) [#/Vol] 4.74 10*6/uL 4.2-5.4 [facility] Serum or plasma calcium ananth urement (mass/volume)Ordered By: Lesli Puentes on 01-23-2024 Calcium [Mass/Vol] 9.5 mg/dL 8.5-10.1 [facility] Serum or plasma creatinine m easurement (mass/volume)Ordered By: Lesli Puentes on 01-23-2024 Creatinine [Mass/Vol] 1.03 mg/dL 0.55-1.02 [facility] Comment on above: The validity of the calculated GFR & GFRAA in patients over 70 years has not been determined. Clinical correlation is essential. Serum or plasma urea nitroge n measurement (mass/volume)Ordered By: Lesli Puentes on 01-23-2024 Urea nitrogen [Mass/Vol] 19 mg/dL 7-18 [facility] Thin prep Papanicolaou smear with manual screeningOrdered By: Lesli Puentes on 01-23-2024 Thin prep Papanicolaou smear with manual screening 3.6 g/dL 3.2-5.0 [facility] Thin prep Papanicolaou smear with manual screening 17 U/L 15-37 [facility] Thin prep Papanicolaou smear with manual screening 4 5-15 [facility] .ANATon 12-11-2023 JACK Pattern 1 Homogeneous Normal [facility] ([place]) Comment on above: Result Comment: At [place], an JACK titer of less than 160 is not considered suggestive of significant rheumatoid disease. If clinical suspicion is high, suggest repeat testing in 1-2 months. Performed By: #### C BC, ESR, GFR, ADIFF, LIPID, CMP, ANEU, CRP #### [address] [address] #### GENIE, JACK #### [address] [address] JACK Titer 1 80 Normal [facility] ([place]) Comment on above: Performed By: #### C BC, ESR, GFR, ADIFF, LIPID, CMP, ANEU, CRP #### [place] [address] #### GENIE, JACK #### [place] [address] ANAon 12-11-2023 JACK See Titer Normal Neg 40 [facility] ([place]) Comment on above: Result Comment: JACK Screen and Titer methodology is an immunofluorescent technique utilizing Hep2 Substrate. Performed By: #### C BC, ESR, GFR, ADIFF, LIPID, CMP, ANEU, CRP #### [address] [address] #### GENIE, JACK #### [address] [address] .Auto Diffon 12-10-2023 Basophil, Absolute 0.0 10 3/mcL Normal 0.0-0.2 [facility] ([place]) Comment on above: Performed By: #### C BC, ESR, GFR, ADIFF, LIPID, CMP, ANEU, CRP #### [address] [address] #### GENIE, JACK #### [address] [address] Basophils/100 WBC (Bld) 0.5 % Normal 0.0-2.5 [facility] ([place]) Comment on above: Performed By: #### C BC, ESR, GFR, ADIFF, LIPID, CMP, ANEU, CRP #### [place] [address] #### GENIE, AJCK #### [address] [address] Eosinophil, Absolute 0.3 10 3/mcL Normal 0.0-0.4 [facility] ([place]) Comment on above: Performed By: #### C BC, ESR, GFR, ADIFF, LIPID, CMP, ANEU, CRP #### [place] [address] #### GENIE, JACK #### [address] [address] Eosinophils/100 WBC (Bld) 6.1 % Normal 0.0-7.0 [facility] ([place]) Comment on above: Performed By: #### C BC, ESR, GFR, ADIFF, LIPID, CMP, ANEU, CRP #### [place] [address] #### GENIE, JACK #### [address] [address] Lymphocyte, Absolute 2.2 10 3/mcL Normal 0.8-3.9 [facility] ([place]) Comment on above: Performed By: #### C BC, ESR, GFR, ADIFF, LIPID, CMP, ANEU, CRP #### [place] [address] #### GENIE, JACK #### [address] [address] Lymphocytes/100 WBC (Bld) 39.6 % Normal 10.0-50.0 [facility] ([place]) Comment on above: Performed By: #### C BC, ESR, GFR, ADIFF, LIPID, CMP, ANEU, CRP #### [place] [address] #### GENIE, JACK #### [address] [address] Monocyte, Absolute 0.5 10 3/mcL Normal 0.2-1.0 [facility] ([place]) Comment on above: Performed By: #### C BC, ESR, GFR, ADIFF, LIPID, CMP, ANEU, CRP #### [address] [address] #### GENIE, JACK #### [address] [address] Monocytes/100 WBC (Bld) 8.4 % Normal 1.7-13.0 [facility] ([place]) Comment on above: Performed By: #### C BC, ESR, GFR, ADIFF, LIPID, CMP, ANEU, CRP #### [address] [address] #### GENIE, JACK #### [address] [address] Neutrophils/100 WBC (Bld) 45.4 % Normal 37.0-80.0 [facility] ([place]) Comment on above: Performed By: #### C BC, ESR, GFR, ADIFF, LIPID, CMP, ANEU, CRP #### [address] [address] #### GENIE, JACK #### [address] [address] .GFRon 12-10-2023 GFR 67 ml/min/1.73sqm Normal [facility] ([place]) Comment on above: Result Comment: GFR Population mean for , Non- Americans Ages 20-29 = 116 mL/min/1.73 sq.m. Ages 30-39 = 107 mL/min/1.73 sq.m. Ages 40-49 = 99 mL/min/1.73 sq.m. Ages 50-59 = 93 mL/min/1.73 sq.m. Ages 60-69 = 85 mL/min/1.73 sq.m. Ages 70+ = 75 mL/min/1.73 sq.m. Chronic Kidney Disease: Less than 60 mL/min/1.73 square meters End Stage Renal Disease: Less than 15 mL/min/1.73 square meters Performed By: #### C BC, ESR, GFR, ADIFF, LIPID, CMP, ANEU, CRP #### [address] [address] #### GENIE, JACK #### [address] [address] GFR Non- 55 ml/min/1.73sqm Normal [facility] ([place]) Comment on above: Result Comment: GFR Population mean for , Non- Americans Ages 20-29 = 116 mL/min/1.73 sq.m. Ages 30-39 = 107 mL/min/1.73 sq.m. Ages 40-49 = 99 mL/min/1.73 sq.m. Ages 50-59 = 93 mL/min/1.73 sq.m. Ages 60-69 = 85 mL/min/1.73 sq.m. Ages 70+ = 75 mL/min/1.73 sq.m. Chronic Kidney Disease: Less than 60 mL/min/1.73 square meters End Stage Renal Disease: Less than 15 mL/min/1.73 square meters Performed By: #### C BC, ESR, GFR, ADIFF, LIPID, CMP, ANEU, CRP #### [place] [address] #### GENIE, JACK #### [place] [address] .NEUABSon 12-10-2023 Neutrophil, Absolute 2.5 10 3/mcL Low 2.9-6.2 [facility] ([place] Comment on above: Performed By: #### C BC, ESR, GFR, ADIFF, LIPID, CMP, ANEU, CRP #### [place] [address] #### GENIE, JACK #### [address] [address] CBCon 12-10-2023 Erythrocyte distribution width (RBC) [Ratio] 13.3 % Normal 11.5-14.5 [facility] ([place]) Comment on above: Performed By: #### C BC, ESR, GFR, ADIFF, LIPID, CMP, ANEU, CRP #### [place] [id number] #### GENIE, JACK #### [place] [address] Hematocrit (Bld) [Volume fraction] 40.9 % Normal 37.0-47.0 [facility] ([place]) Comment on above: Performed By: #### C BC, ESR, GFR, ADIFF, LIPID, CMP, ANEU, CRP #### [place] [address] #### GENIE, JACK #### [place] [address] Hgb 13.9 G/dL Normal 12.0-16.0 [facility] ([place]) Comment on above: Performed By: #### C BC, ESR, GFR, ADIFF, LIPID, CMP, ANEU, CRP #### [place] [address] #### GENIE, JACK #### [place] [address] MCH (RBC) [Entitic mass] 30.5 pg Normal 27.0-31.2 [facility] ([place]) Comment on above: Performed By: #### C BC, ESR, GFR, ADIFF, LIPID, CMP, ANEU, CRP #### [place] [address] #### GENIE, JACK #### [place] [address] MCHC 34.1 G/dL Normal 33.0-37.0 [facility] ([place]) Comment on above: Performed By: #### C BC, ESR, GFR, ADIFF, LIPID, CMP, ANEU, CRP #### [place] [address] #### GENIE, JACK #### [place] [address] MCV (RBC) [Entitic vol] 89.5 fL Normal 80.0-94.0 [facility] ([place]) Comment on above: Performed By: #### C BC, ESR, GFR, ADIFF, LIPID, CMP, ANEU, CRP #### [place] [address] #### GENIE, JACK #### [place] [address] Platelet 196 10 3/mcL Normal 130-400 [facility] ([place]) Comment on above: Performed By: #### C BC, ESR, GFR, ADIFF, LIPID, CMP, ANEU, CRP #### [place] [address] #### GENIE, JACK #### [place] [address] Platelet mean volume (Bld) [Entitic vol] 8.8 fL Normal 7.4-10.4 [facility] ([place]) Comment on above: Performed By: #### C BC, ESR, GFR, ADIFF, LIPID, CMP, ANEU, CRP #### [place] [address] #### GENIE, JACK #### [place] [address] RBC 4.57 10 6/mcL Normal 4.20-5.40 [facility] ([place]) Comment on above: Performed By: #### C BC, ESR, GFR, ADIFF, LIPID, CMP, ANEU, CRP #### [place] [address] #### GENIE, JACK #### [place] [address] WBC 5.6 10 3/mcL Normal 4.6-10.8 [facility] ([place]) Comment on above: Performed By: #### C BC, ESR, GFR, ADIFF, LIPID, CMP, ANEU, CRP #### [place] [address] #### GENIE, JACK #### [place] [address] CMPon 12-10-2023 Albumin Level 3.8 G/dL Normal 3.4-4.8 [facility] ([place]) Comment on above: Performed By: #### C BC, ESR, GFR, ADIFF, LIPID, CMP, ANEU, CRP #### [place] [address] #### GENIE, JACK #### [address] [address] Albumin/Globulin [Mass ratio] 1.2 {ratio} Normal 1.1-2.5 [facility] ([place]) Comment on above: Performed By: #### C BC, ESR, GFR, ADIFF, LIPID, CMP, ANEU, CRP #### [place] [address] #### GENIE, JACK #### [address] [address] ALP [Catalytic activity/Vol] 96 U/L Normal 40-135 [facility] ([place]) Comment on above: Performed By: #### C BC, ESR, GFR, ADIFF, LIPID, CMP, ANEU, CRP #### [place] [address] #### GENIE, JACK #### [place] [address] ALT [Catalytic activity/Vol] 30 U/L Normal 14-59 [facility] ([place]) Comment on above: Performed By: #### C BC, ESR, GFR, ADIFF, LIPID, CMP, ANEU, CRP #### [place] [address] #### GENIE, JACK #### [place] [address] AST [Catalytic activity/Vol] 22 U/L Normal 10-40 [facility] ([place]) Comment on above: Performed By: #### C BC, ESR, GFR, ADIFF, LIPID, CMP, ANEU, CRP #### [place] [address] #### GENIE, JACK #### [place] [id number] Bili Total 1.3 mg/dL High 0.2-1.0 [facility] ([place]) Comment on above: Result Comment: Use of this assay is not recommended for patients undergoing treatment with eltrombopag due to the potential for falsely elevated results. Performed By: #### C BC, ESR, GFR, ADIFF, LIPID, CMP, ANEU, CRP #### [address] [address] #### GENIE, JACK #### [address] [address] BUN/Creatinine Ratio 13 ratio Normal 7-27 [facility] ([place] Comment on above: Performed By: #### C BC, ESR, GFR, ADIFF, LIPID, CMP, ANEU, CRP #### [place] [address] #### GENIE, JACK #### [address] [address] Calcium [Mass/Vol] 9.1 mg/dL Normal 8.4-10.2 [facility] ([place]) Comment on above: Performed By: #### C BC, ESR, GFR, ADIFF, LIPID, CMP, ANEU, CRP #### [place] [address] #### GENIE, JACK #### [address] [address] Chloride [Moles/Vol] 105 mmol/L Normal 98-107 [facility] ([place] Comment on above: Performed By: #### C BC, ESR, GFR, ADIFF, LIPID, CMP, ANEU, CRP #### [address] [address] #### GENIE, JACK #### [address] [address] CO2 [Moles/Vol] 32 mmol/L High 23-31 [facility] ([place]) Comment on above: Performed By: #### C BC, ESR, GFR, ADIFF, LIPID, CMP, ANEU, CRP #### [address] [address] #### GENIE, JACK #### [address] [address] Creatinine [Mass/Vol] 0.99 mg/dL Normal 0.55-1.02 [facility] ([place]) Comment on above: Performed By: #### C BC, ESR, GFR, ADIFF, LIPID, CMP, ANEU, CRP #### [address] [address] #### GENIE, JACK #### [address] [address] Electrolyte Balance 8.0 mEq/L Normal 4.0-15.0 [facility] ([place]) Comment on above: Performed By: #### C BC, ESR, GFR, ADIFF, LIPID, CMP, ANEU, CRP #### [place] [address] #### GENIE, JACK #### [address] [address] Globulin 3.2 G/dL Normal [facility] ([place]) Comment on above: Performed By: #### C BC, ESR, GFR, ADIFF, LIPID, CMP, ANEU, CRP #### [place] [address] #### GENIE, JACK #### [address] [address] Glucose [Mass/Vol] 96 mg/dL Normal 83-110 [facility] ([place] Comment on above: Performed By: #### C BC, ESR, GFR, ADIFF, LIPID, CMP, ANEU, CRP #### [address] [address] #### GENIE, JACK #### [address] [address] Potassium [Moles/Vol] 5.0 mmol/L Normal 3.5-5.1 [facility] ([place] Comment on above: Performed By: #### C BC, ESR, GFR, ADIFF, LIPID, CMP, ANEU, CRP #### [address] [address] #### GENIE, JACK #### [address] [address] Sodium [Moles/Vol] 145 mmol/L Normal 136-145 [facility] ([place] Comment on above: Performed By: #### C BC, ESR, GFR, ADIFF, LIPID, CMP, ANEU, CRP #### [place] [address] #### GENIE, JACK #### [place] [address] Total Protein 7.0 G/dL Normal 6.4-8.2 [facility] ([place] Comment on above: Performed By: #### C BC, ESR, GFR, ADIFF, LIPID, CMP, ANEU, CRP #### [place] [address] #### GENIE, JACK #### [place] [address] Urea nitrogen [Mass/Vol] 13 mg/dL Normal 7-18 [facility] ([place] Comment on above: Performed By: #### C BC, ESR, GFR, ADIFF, LIPID, CMP, ANEU, CRP #### [place] [address] #### GENIE, JACK #### [place] [address] CRPon 12-10-2023 C-Reactive Protein 0.2 mg/dL Normal 0.0-0.3 [facility] ([place] Comment on above: Performed By: #### C BC, ESR, GFR, ADIFF, LIPID, CMP, ANEU, CRP #### [place] [address] #### GENIE, JACK #### [place] [address] ESRon 12-10-2023 Erythrocyte Sed Rate 3 mm/hr Normal 0-30 [facility] ([place] Comment on above: Performed By: #### C BC, ESR, GFR, ADIFF, LIPID, CMP, ANEU, CRP #### [place] [address] #### GENIE, JACK #### [place] [address] LABORATORYOrdered By: SYSTEM SYSTEM on 12-10-2023 Albumin BCP dye [Mass/Vol] 3.8 G/dL Normal 3.4 - 4.8 G/dL AO ADM SS Albumin/Globulin [Mass ratio] 1.2 {ratio} Normal 1.1 - 2.5 ratio AO ADM SS ALP [Catalytic activity/Vol] 96 U/L Normal 40 - 135 U/L AO ADM SS ALT With P-5'-P [Catalytic activity/Vol] 30 U/L Normal 14 - 59 U/L AO ADM SS AST With P-5'-P [Catalytic activity/Vol] 22 U/L Normal 10 - 40 U/L AO ADM SS Basophil, Absolute 0.0 103/mcL Normal 0.0 - 0.2 10^3/mcL AO Workflow SS Basophils/100 WBC (Bld) 0.5 % Normal 0.0 - 2.5 % AO Workflow SS Bilirubin [Mass/Vol] 1.3 mg/dL High 0.2 - 1 .0 mg/dL AO ADM SS Comment on above: Interpretive Data: U se of this assay is not recommended for patients undergoing treatment with eltrombopag due to the potential for falsely elevated results. Calcium [Mass/Vol] 9.1 mg/dL Normal 8.4 - 10. 2 mg/dL AO ADM SS Chloride [Moles/Vol] 105 mmol/L Normal 98 - 10 7 mmol/L AO ADM SS CO2 [Moles/Vol] 32 mmol/L High 23 - 31 mmol/L AO ADM SS Creatinine [Mass/Vol] 0.99 mg/dL Normal 0.55 - 1.02 mg/dL AO ADM SS CRP [Mass/Vol] 0.2 mg/dL Normal 0.0 - 0.3 mg/dL AO ADM SS Electrolyte Balance 8.0 mEq/L Normal 4.0 - 15 .0 mEq/L AO ADM SS Eosinophil, Absolute 0.3 103/mcL Normal 0.0 - 0 .4 10^3/mcL AO Workflow SS Eosinophils/100 WBC (Bld) 6.1 % Normal 0.0 - 7.0 % AO Workflow SS Erythrocyte distribution width (RBC) [Ratio] 13.3 % Normal 11.5 - 14.5 % AO Workflow SS GFR/1.73 sq M.predicted among blacks MDRD (S/P/Bld) [Vol rate/Area] 67 ml/min/1.73sqm Invalid Interpretation Code AO Chemistry S Comment on above: Interpretive Data: GFR Population mean for , Non- Americans Ages 20-29 = 116 mL/min/1.73 sq.m. Ages 30-39 = 107 mL/min/1.73 sq.m. Ages 40-49 = 99 mL/min/1.73 sq.m. Ages 50-59 = 93 mL/min/1.73 sq.m. Ages 60-69 = 85 mL/min/1.73 sq.m. Ages 70+ = 75 mL/min/1.73 sq.m. Chronic Kidney Disease: Less than 60 mL/min/1.73 square meters End Stage Renal Disease: Less than 15 mL/min/1.73 square meters GFR/1.73 sq M.predicted among non-blacks MDRD (S/P/Bld) [Vol rate/Area] 55 ml/min/1.73sqm Invalid Interpretation Code AO Chemistry S Comment on above: Interpretive Data: GFR Population mean for , Non- Americans Ages 20-29 = 116 mL/min/1.73 sq.m. Ages 30-39 = 107 mL/min/1.73 sq.m. Ages 40-49 = 99 mL/min/1.73 sq.m. Ages 50-59 = 93 mL/min/1.73 sq.m. Ages 60-69 = 85 mL/min/1.73 sq.m. Ages 70+ = 75 mL/min/1.73 sq.m. Chronic Kidney Disease: Less than 60 mL/min/1.73 square meters End Stage Renal Disease: Less than 15 mL/min/1.73 square meters Globulin 3.2 G/dL Invalid Interpretation Code AO ADM SS Glucose [Mass/Vol] 96 mg/dL Normal 83 - 110 mg/dL AO ADM SS Hematocrit (Bld) [Volume fraction] 40.9 % Normal 37.0 - 47.0 % AO Workflow SS Hemoglobin (Bld) [Mass/Vol] 13.9 G/dL Normal 12.0 - 16.0 G/dL AO Workflow SS Lymphocyte, Absolute 2.2 103/mcL Normal 0.8 - 3 .9 10^3/mcL AO Workflow SS Lymphocytes/100 WBC (Bld) 39.6 % Normal 10.0 - 50.0 % AO Workflow SS MCH (RBC) [Entitic mass] 30.5 pg Normal 27.0 - 31.2 pg AO Workflow SS MCHC 34.1 G/dL Normal 33.0 - 37.0 G/dL AO Workflow SS MCV (RBC) [Entitic vol] 89.5 fL Normal 80.0 - 94.0 fL AO Workflow SS Monocyte, Absolute 0.5 103/mcL Normal 0.2 - 1.0 10^3/mcL AO Workflow SS Monocytes/100 WBC (Bld) 8.4 % Normal 1.7 - 13.0 % AO Workflow SS Neutrophil, Absolute 2.5 103/mcL Low 2.9 - 6 .2 10^3/mcL AO Workflow SS Neutrophils/100 WBC (Bld) 45.4 % Normal 37.0 - 80.0 % AO Workflow SS Platelet mean volume (Bld) [Entitic vol] 8.8 fL Normal 7.4 - 10.4 fL AO Workflow SS Platelets (Bld) [#/Vol] 196 103/mcL Normal 130 - 400 10^3/mcL AO Workflow SS Potassium [Moles/Vol] 5.0 mmol/L Normal 3.5 - 5.1 mmol/L AO ADM SS Protein [Mass/Vol] 7.0 G/dL Normal 6.4 - 8.2 G/dL AO ADM SS RBC (Bld) [#/Vol] 4.57 106/mcL Normal 4.20 - 5.4 0 10^6/mcL AO Workflow SS Sodium [Moles/Vol] 145 mmol/L Normal 136 - 145 mmol/L AO ADM SS Urea nitrogen [Mass/Vol] 13 mg/dL Normal 7 - 18 mg/dL AO ADM SS Urea nitrogen/Creatinine [Mass ratio] 13 ratio Normal 7 - 27 ratio AO ADM SS WBC (Bld) [#/Vol] 5.6 103/mcL Normal 4.6 - 10.8 10^3/mcL AO Workflow SS LABORATORYOrdered By: Alla Estes on 12-10-2023 Cholesterol [Mass/Vol] 222 mg/dL High 0 - 2 00 mg/dL AO ADM SS Comment on above: Interpretive Data: C holesterol Reference Interval: Less than 200 Desirable 200-239 Borderline high risk 240 and above High risk Cholesterol in HDL [Mass/Vol] 94 mg/dL High 40 - 60 mg/dL AO ADM SS Cholesterol in LDL [Mass/Vol] 112 mg/dL Normal 0 - 130 mg/dL AO ADM SS Triglyceride [Mass/Vol] 80 mg/dL Normal 0 - 150 mg/dL AO ADM SS Comment on above: Interpretive Data: T riglyceride Reference Interval: Less than 150 Normal 150-199 Borderline high risk 200-499 High risk 500 or higher Very high risk LABORATORYOrdered By: Keo Proctor on 12-10-2023 ESR Photometric method (Bld) [Velocity] 3 mm/hr Normal 0 - 30 mm/hr AO Man Heme SS LIPIDon 12-10-2023 Cholesterol [Mass/Vol] 222 mg/dL High 0-200 [facility] ([place]) Comment on above: Result Comment: Chol esterol Reference Interval: Less than 200 Desirable 200-239 Borderline high risk 240 and above High risk Performed By: #### C BC, ESR, GFR, ADIFF, LIPID, CMP, ANEU, CRP #### [place] [id number] #### GENIE, JACK #### [address] [address] Cholesterol in HDL [Mass/Vol] 94 mg/dL High 40-60 [facility] ([place]) Comment on above: Performed By: #### C BC, ESR, GFR, ADIFF, LIPID, CMP, ANEU, CRP #### [address] [address] #### GENIE, JACK #### [address] [address] Cholesterol in LDL [Mass/Vol] 112 mg/dL Normal 0-130 [facility] ([place]) Comment on above: Performed By: #### C BC, ESR, GFR, ADIFF, LIPID, CMP, ANEU, CRP #### [place] [id number] #### GENIE, JACK #### [address] [address] Triglyceride [Mass/Vol] 80 mg/dL Normal 0-150 [facility] ([place]) Comment on above: Result Comment: Trig lyceride Reference Interval: Less than 150 Normal 150-199 Borderline high risk 200-499 High risk 500 or higher Very high risk Performed By: #### C BC, ESR, GFR, ADIFF, LIPID, CMP, ANEU, CRP #### [place] [id number] #### GENIE, JACK #### [place] [id number] LABORATORYOrdered By: SYSTEM SYSTEM on 12-18-2022 Albumin BCP dye [Mass/Vol] 3.8 G/dL Invalid Interpretation Code 3.4 - 4.8 G/dL AO ADM SS Albumin/Globulin [Mass ratio] 1.2 {ratio} Invalid Interpretation Code 1.1 - 2.5 ratio AO ADM SS ALP [Catalytic activity/Vol] 91 U/L Invalid Interpretation Code 40 - 135 U/L AO ADM SS ALT With P-5'-P [Catalytic activity/Vol] 27 U/L Invalid Interpretation Code 14 - 59 U/L AO ADM SS AST With P-5'-P [Catalytic activity/Vol] 24 U/L Invalid Interpretation Code 10 - 40 U/L AO ADM SS Bilirubin [Mass/Vol] 1.1 mg/dL Invalid Interpretation Code 0.2 - 1.0 mg/dL AO ADM SS Calcium [Mass/Vol] 9.0 mg/dL Invalid Interpretation Code 8.4 - 10.2 mg/dL AO ADM SS Chloride [Moles/Vol] 106 mmol/L Invalid Interpretation Code 98 - 107 mmol/L AO ADM SS CO2 [Moles/Vol] 34 mmol/L Invalid Interpretation Code 23 - 31 mmol/L AO ADM SS Creatinine [Mass/Vol] 0.96 mg/dL Invalid Interpretation Code 0.55 - 1.02 mg/dL AO ADM SS Electrolyte Balance 8.0 mEq/L Invalid Interpretation Code 4.0 - 15.0 mEq/L AO ADM SS GFR 70 ml/min/1.73sqm Invalid Interpretation Code AO Chemistry S GFR Non- 57 ml/min/1.73sqm Invalid Interpretation Code AO Chemistry S Globulin 3.3 G/dL Invalid Interpretation Code AO ADM SS Glucose [Mass/Vol] 91 mg/dL Invalid Interpretation Code 83 - 110 mg/dL AO ADM SS Potassium [Moles/Vol] 5.0 mmol/L Invalid Interpretation Code 3.5 - 5.1 mmol/L AO ADM SS Protein [Mass/Vol] 7.1 G/dL Invalid Interpretation Code 6.4 - 8.2 G/dL AO ADM SS Sodium [Moles/Vol] 148 mmol/L Invalid Interpretation Code 136 - 145 mmol/L AO ADM SS Urea nitrogen [Mass/Vol] 18 mg/dL Invalid Interpretation Code 7 - 18 mg/dL AO ADM SS Urea nitrogen/Creatinine [Mass ratio] 19 ratio Invalid Interpretation Code 7 - 27 ratio AO ADM SS LABORATORYOrdered By: Alla Estes on 12-18-2022 Basophil, Absolute 0.0 103/mcL Invalid Interpretation Code 0.0 - 0.2 10^3/mcL AO Workflow SS Basophils/100 WBC (Bld) 0.9 % Invalid Interpretation Code 0.0 - 2.5 % AO Workflow SS Cholesterol [Mass/Vol] 204 mg/dL Invalid Interpretation Code 0 - 200 mg/dL AO ADM SS Cholesterol in HDL [Mass/Vol] 92 mg/dL Invalid Interpretation Code 40 - 60 mg/dL AO ADM SS Cholesterol in LDL [Mass/Vol] 101 mg/dL Invalid Interpretation Code 0 - 130 mg/dL AO ADM SS Eosinophil, Absolute 0.2 103/mcL Invalid Interpretation Code 0.0 - 0.4 10^3/mcL AO Workflow SS Eosinophils/100 WBC (Bld) 5.5 % Invalid Interpretation Code 0.0 - 7.0 % AO Workflow SS Erythrocyte distribution width (RBC) [Ratio] 13.2 % Invalid Interpretation Code 11.5 - 14.5 % AO Workflow SS Hematocrit (Bld) [Volume fraction] 41.5 % Invalid Interpretation Code 37.0 - 47.0 % AO Workflow SS Hemoglobin (Bld) [Mass/Vol] 13.9 G/dL Invalid Interpretation Code 12.0 - 16.0 G/dL AO Workflow SS Lymphocyte, Absolute 1.8 103/mcL Invalid Interpretation Code 0.8 - 3.9 10^3/mcL AO Workflow SS Lymphocytes/100 WBC (Bld) 41.0 % Invalid Interpretation Code 10.0 - 50.0 % AO Workflow SS MCH (RBC) [Entitic mass] 29.7 pg Invalid Interpretation Code 27.0 - 31.2 pg AO Workflow SS MCHC 33.6 G/dL Invalid Interpretation Code 33.0 - 37.0 G/dL AO Workflow SS MCV (RBC) [Entitic vol] 88.5 fL Invalid Interpretation Code 80.0 - 94.0 fL AO Workflow SS Monocyte, Absolute 0.4 103/mcL Invalid Interpretation Code 0.2 - 1.0 10^3/mcL AO Workflow SS Monocytes/100 WBC (Bld) 8.4 % Invalid Interpretation Code 1.7 - 13.0 % AO Workflow SS Neutrophil, Absolute 2.0 103/mcL Invalid Interpretation Code 2.9 - 6.2 10^3/mcL AO Workflow SS Neutrophils/100 WBC (Bld) 44.2 % Invalid Interpretation Code 37.0 - 80.0 % AO Workflow SS Platelet mean volume (Bld) [Entitic vol] 8.3 fL Invalid Interpretation Code 7.4 - 10.4 fL AO Workflow SS Platelets (Bld) [#/Vol] 174 103/mcL Invalid Interpretation Code 130 - 400 10^3/mcL AO Workflow SS RBC (Bld) [#/Vol] 4.69 106/mcL Invalid Interpretation Code 4.20 - 5.40 10^6/mcL AO Workflow SS Triglyceride [Mass/Vol] 57 mg/dL Invalid Interpretation Code 0 - 150 mg/dL AO ADM SS WBC (Bld) [#/Vol] 4.5 103/mcL Invalid Interpretation Code 4.6 - 10.8 10^3/mcL AO Workflow SS LABORATORYOrdered By: Alla Estes on 11-02-2021 Albumin BCP dye [Mass/Vol] 4.0 G/dL Invalid Interpretation Code 3.4 - 4.8 G/dL AO ADM SS Albumin/Globulin [Mass ratio] 1.2 {ratio} Invalid Interpretation Code 1.1 - 2.5 ratio AO ADM SS ALP [Catalytic activity/Vol] 99 U/L Invalid Interpretation Code 40 - 135 U/L AO ADM SS ALT With P-5'-P [Catalytic activity/Vol] 36 U/L Invalid Interpretation Code 14 - 59 U/L AO ADM SS AST With P-5'-P [Catalytic activity/Vol] 28 U/L Invalid Interpretation Code 10 - 40 U/L AO ADM SS Bilirubin [Mass/Vol] 1.0 mg/dL Invalid Interpretation Code 0.2 - 1.0 mg/dL AO ADM SS Calcium [Mass/Vol] 9.3 mg/dL Invalid Interpretation Code 8.4 - 10.2 mg/dL AO ADM SS Chloride [Moles/Vol] 104 mmol/L Invalid Interpretation Code 98 - 107 mmol/L AO ADM SS Cholesterol [Mass/Vol] 215 mg/dL Invalid Interpretation Code 0 - 200 mg/dL AO ADM SS Cholesterol in HDL [Mass/Vol] 89 mg/dL Invalid Interpretation Code 40 - 60 mg/dL AO ADM SS Cholesterol in LDL [Mass/Vol] 111 mg/dL Invalid Interpretation Code 0 - 130 mg/dL AO ADM SS CO2 [Moles/Vol] 33 mmol/L Invalid Interpretation Code 23 - 31 mmol/L AO ADM SS Creatinine [Mass/Vol] 0.84 mg/dL Invalid Interpretation Code 0.55 - 1.02 mg/dL AO ADM SS Electrolyte Balance 8.0 mEq/L Invalid Interpretation Code AO ADM SS Globulin 3.2 G/dL Invalid Interpretation Code AO ADM SS Glucose [Mass/Vol] 91 mg/dL Invalid Interpretation Code 80 - 115 mg/dL AO ADM SS Potassium [Moles/Vol] 5.0 mmol/L Invalid Interpretation Code 3.5 - 5.1 mmol/L AO ADM SS Protein [Mass/Vol] 7.2 G/dL Invalid Interpretation Code 6.4 - 8.2 G/dL AO ADM SS Sodium [Moles/Vol] 145 mmol/L Invalid Interpretation Code 136 - 145 mmol/L AO ADM SS Triglyceride [Mass/Vol] 74 mg/dL Invalid Interpretation Code 0 - 150 mg/dL AO ADM SS Urea nitrogen [Mass/Vol] 15 mg/dL Invalid Interpretation Code 7 - 18 mg/dL AO ADM SS Urea nitrogen/Creatinine [Mass ratio] 18 ratio Invalid Interpretation Code 7 - 27 ratio AO ADM SS LABORATORYOrdered By: SYSTEM SYSTEM on 11-02-2021 GFR 81 ml/min/1.73sqm Invalid Interpretation Code AO Chemistry S GFR Non- 67 ml/min/1.73sqm Invalid Interpretation Code AO Chemistry S Marivel 01-02-2018 GI ----- Patient: STELLA THURMAN SPECIMEN : [id number] Collection Date: 01/02/18 Received: 01/07/18 Status: ERICK Dunne Dr.: Hossein Henderson MD Ph# Othr. DrSimi: Lesly Gagnon Material for Examination: A CECAL POLYP PRE-OP DIAGNOSIS: HX OF COLONIC POLYPS POST-OP DIAGNOSIS: NONE GIVEN SURGICAL PROCEDURE: NONE GIVEN SPECIMEN COMMENTS: RECEIVED FROM [facility], [address] [place] [address] 2 Reginald SLIDES LABELED [id number] OLMANSTELLA L1,[id number] A. Cecal polyp: - Tubular adenoma.GROSS DESCRIPTION The specimen is grossed and processed at [facility] The following is their gross description:Received in formalin, labeled cecal polyp, is a single irregular, soft, pink-mcdonald fragmentof tissue measuring less than 0.1 x less than 0.1 cm. The specimen is entirely submitted inone cassette. May not survive processing.MICROSCOPIC DESCRIPTION Two Reginald stained slides examined.COPIES TO: Hossein Henderson MD, Debra ASignmia Verified/Reviewed by ROSALINE RIOS M.D. 01/08/18 This dictation was created using voice recognition software. Phonetic and/or minor grammatical errors may exist. [facility] NAME: STELLA THURMAN Pathology and Laboratory Medicine UNIT#: [id number] LOC: [facility] Allergy Nurse: Rosaline Rios M.D. ROOM/BED: [facility] : 52 AGE/SEX: 67/F ORD.Hossein Harrell MD END OF REPORT [facility] Vital Signs Date Time Vital Sign Value Performing Clinician Faci lity 05-11-2025 14:23-0400 Body height 165.[address] Hortensia Wesley DO Work Phone: [facility] 05-11-2025 14:23-0400 Body mass index (BMI) [Ratio] 22.6 kg/m2 Dr. Hortensia Wesley DO Work Phone: [facility] 05-11-2025 14:23-0400 Body weight 61.[address] Hortensia Wesley DO Work Phone: [facility] 05-11-2025 14:23-0400 Diastolic blood pressure 73 mm[Hg] Dr. Hortensia Wesley DO Work Phone: [facility] 05-11-2025 14:23-0400 Heart rate 63 /min Dr. Hortensia Wesley DO Work Phone: [facility] 05-11-2025 14:23-0400 Respiratory rate 18 /min Dr. Hortensia Wesley DO Work Phone: [facility] 05-11-2025 14:23-0400 SaO2% (BldA) [Mass fraction] 96 % Dr. Hortensia Wesley DO Work Phone: [facility] 05-11-2025 14:23-0400 Systolic blood pressure 144 mm[Hg] Dr. Hortensia Wesley DO Work Phone: [facility] 03-21-2025 07:16-0400 Body height 165.[address] Hortensia Wesley DO Work Phone: [facility] 03-21-2025 07:16-0400 Body weight 62.[address] Hortensia Wesley DO Work Phone: [facility] 03-18-2025 07:32-0400 Body mass index (BMI) [Ratio] 22.9 kg/m2 Dr. Hortensia Wesley DO Work Phone: [facility] 02-11-2025 11:26-0400 Body height 165.[address] Hortensia Wesley DO Work Phone: [facility] 02-11-2025 11:26-0400 Body mass index (BMI) [Ratio] 22.9 kg/m2 Dr. Hortensia Wesley DO Work Phone: [facility] 02-11-2025 11:26-0400 Body weight 62.[address] Hortensia Wesley DO Work Phone: [facility] 02-11-2025 11:26-0400 Diastolic blood pressure 83 mm[Hg] Dr. Hortensia Wesley DO Work Phone: [facility] 02-11-2025 11:26-0400 Heart rate 69 /min Dr. Hortensia Wesley DO Work Phone: [facility] 02-11-2025 11:26-0400 Respiratory rate 16 /min Dr. Hortensia Wesley DO Work Phone: [facility] 02-11-2025 11:26-0400 SaO2% (BldA) [Mass fraction] 98 % Dr. Hortesnia Wesley DO Work Phone: [facility] 02-11-2025 11:26-0400 Systolic blood pressure 148 mm[Hg] Dr. Hortensia Wesley DO Work Phone: [facility] 12-24-2024 09:26-0500 Body mass index (BMI) [Ratio] 22.8 kg/m2 Dr. Hortensia Wesley DO Work Phone: [facility] 12-24-2024 09:26-0500 Body weight 62.[address] Hortensia Wesley DO Work Phone: [facility] 12-24-2024 09:26-0500 Diastolic blood pressure 72 mm[Hg] Dr. Hortensia Wesley DO Work Phone: [facility] 12-24-2024 09:26-0500 Heart rate 80 /min Dr. Hortensia Wesley DO Work Phone: [facility] 12-24-2024 09:26-0500 Respiratory rate 16 /min Dr. Hortensia Wesley DO Work Phone: [facility] 12-24-2024 09:26-0500 Systolic blood pressure 145 mm[Hg] Dr. Hortensia Wesley DO Work Phone: [facility] 11-12-2024 10:49-0500 Body mass index (BMI) [Ratio] 22.4 kg/m2 Dr. Hortensia Wesley DO Work Phone: [facility] 11-12-2024 10:49-0500 Body weight 61.[address] Hortensia Wesley DO Work Phone: [facility] 11-12-2024 10:49-0500 Diastolic blood pressure 63 mm[Hg] Dr. Hortensia Wesley DO Work Phone: [facility] 11-12-2024 10:49-0500 Heart rate 69 /min Dr. Hortensia Wesley DO Work Phone: [facility] 11-12-2024 10:49-0500 Respiratory rate 18 /min Dr. Hortensia Wesley DO Work Phone: [facility] 11-12-2024 10:49-0500 SaO2% (BldA) [Mass fraction] 97 % Dr. Hortensia Wesley DO Work Phone: [facility] 11-12-2024 10:49-0500 Systolic blood pressure 126 mm[Hg] Dr. Hortensia Wesley DO Work Phone: [facility] 07-17-2022 09:29-0400 Body height 165.1 cm [facility] Work Phone: Encounters Encounter Date Encounter Type Care Provider Facility Start: 05-11-2025 End: 05-11-[address] Alonso Falcon MD -[facility] Work Phone: Start: 05-11-2025 End: 05-11-[address] Hortensia Wesley DO Work Phone: [facility] Work Phone: Start: 04-27-2025 ambulatory LESLI PUENTES [employer] PROFESSOR Facili ty:[facility] Start: 03-30-2025 ambulatory Hortensia Wesley Facility:[facility] Start: 03-30-2025 Non-patient / Non-visit Dr. Jam Gutierrez MD -[facility] Start: 03-30-2025 End: 03-30-2025 Patient encounter procedure Dany Granados MACHINE FIXER-C -[facility] Work Phone: Start: 03-30-2025 End: 03-30-2025 ambulatory Dany Granados NP Facility:[facility] Start: 03-21-2025 End: 03-21-2025 Admission to same day surgery center Dr. Vinny Ruiz MD -[employer] [employer] Work Phone: Start: 03-21-2025 End: 03-21-[address] Hortensia Wesley DO Work Phone: [facility] Work Phone: Start: 03-09-2025 ambulatory Supriya COLLIER Facility:[facility] Start: 03-09-2025 Non-patient / Non-visit Supriya COLLIER -[facility] Start: 02-28-2025 Non-patient / Non-visit Dr. Vinny Ruiz MD -[facility] Start: 02-28-2025 End: 02-28-[address] Hortensia Wesley DO Work Phone: [facility] Work Phone: Start: 02-28-2025 End: 02-28-[address] Alonso Falcon MD -[facility] Work Phone: Start: 02-28-2025 End: 02-28-2025 ambulatory Hortensia Wesley Facility:[facility] Start: 02-11-2025 End: 02-11-[address] Alonso Falcon MD -[facility] Work Phone: Start: 02-11-2025 End: 02-11-2025 ambulatory Alonso Falcon Facility:[facility] Start: 12-24-2024 End: 12-24-2024 Patient encounter procedure Supriya COLLIER -[facility] Work Phone: Start: 12-24-2024 End: 12-24-2024 ambulatory Supriya COLLIER Facility:[facility] Start: 11-12-2024 End: 11-12-[address] Alonso Falcon MD -[facility] Work Phone: Start: 11-12-2024 End: 11-12-2024 ambulatory Alonso Falcon Facility:[facility] Start: 11-10-2024 ambulatory Vinny Ruiz Facility:[facility] Start: 11-10-2024 Non-patient / Non-visit Dr. Vinny Ruiz MD -[facility] Start: 11-10-2024 End: 11-10-[address] Alonso Falcon MD -[facility] Work Phone: Start: 11-10-2024 End: 11-10-2024 ambulatory Alonso Falcon Facility:[facility] Start: 10-31-2024 End: 10-31-2024 Emergency department patient visit Gailus Carlsonblanche Facility:[facility] Start: 10-07-2024 ambulatory Alonso Falcon Facility :[facility] Start: 10-07-2024 End: 10-07-2024 ambulatory Alonso Falcon Facility:[facility] Start: 09-07-2024 End: 09-07-2024 ambulatory Alonso Falcon Facility:[facility] Start: 09-07-2024 End: 09-07-2024 ambulatory Alonso Falcon Facility:[facility] Start: 08-23-2024 End: 08-23-2024 ambulatory Hortensia Wesley Facility:[facility] Start: 08-19-2024 End: 08-19-2024 ambulatory Alonso Falcon Facility:[facility] Start: 08-19-2024 End: 08-19-2024 ambulatory Alonso Falcon Facility:[facility] Start: 08-16-2024 End: 08-16-[address] HORTENSIA WESLEY DO Facility:[facility] Start: 08-16-2024 End: 08-16-[address] HORTENSIA WESLEY DO [facility] Start: 08-12-2024 ambulatory Alonso Falcon Facility :[facility] Start: 08-12-2024 End: 08-12-2024 ambulatory Alonso Falcno Facility:[facility] Start: 07-16-2024 End: 07-16-2024 ambulatory Alonso Falcon Facility:[facility] Start: 07-16-2024 End: 07-16-2024 ambulatory [facility] Facility:[facility] Start: 07-05-2024 ambulatory Hortensia Wesley Facility:[facility] Start: 07-03-2024 ambulatory [place] Fac ility:[facility] Start: 07-03-2024 End: 07-08-2024 Evaluation and management of inpatient [facility] Facility:[facility] Start: 04-16-2024 End: 04-17-[address] HORTENSIA WESLEY DO Facility:[facility] Start: 01-23-2024 End: 01-23-2024 ambulatory [facility] Work Phone: Start: 01-23-2024 End: 01-23-2024 Patient encounter procedure [facility]-Laboratory, Darline Adkins [facility] Start: 12-10-2023 End: 12-11-[address] HORTENSIA WESLEY DO Facility:[facility] Start: 12-10-2023 End: 12-10-[address] HORTENSIA WESLEY DO [facility] Start: 12-18-2022 End: 12-18-[address] HORTENSIA WESLEY DO [facility] Start: 07-17-2022 End: 07-17-2022 ambulatory [facility] Work Phone: Start: 07-17-2022 End: 07-17-2022 Patient encounter procedure [facility]-Outpatient Bone Densitometry Start: 11-02-2021 End: 11-02-[address] HORTENSIA WESLEY DO [facility] Start: 01-02-2018 Ambulatory Hossein Henderson Facility: [facility] Procedures Date Procedure Procedure Detail Performing Clinician Start: 02-11-2025 Evaluation of diagno stic study results Dr. Hortensia Wesley DO Work Phone: Start: 12-24-2024 Evaluation of diagno stic study results Dr. Hortensia Wesley DO Work Phone: Start: 11-12-2024 Evaluation of diagno stic study results Dr. Hortensia Wesley DO Work Phone: Start: 07-17-2022 Screening mammography Start: 07-17-2022 Dual energy X-ray absorptiometry Plan of Treatment Date Care Activity Detail Author Start: 03-21-2025 Patient discharge [facility] Basic metabolic 2008 panel with ionized calcium - Serum or Plasma [facility] Patient referral [facility] Work Phone: Immunizations Immunization Date Immunization Notes Care Provider [facility] 05-31-2024 Covid Pfizer Bivalen t Booster Dr. Hortensia Wesley DO Work Phone: [facility] 02-21-2021 Covid (Moderna) [facility] 01-24-2021 Covid ([facility]) [facility] Payers Date Payer Category Payer Self-pay [id number] 2017 Unknown [id number] 2016 Medicare [id number] 2016 Medicare [id number] 1950 Unknown [id number] 2.16.8 40.1.343239.3.579.2.627 1950 Unknown [id number] 2.16.8 40.1.578447.3.579.2.627 1950 Unknown [id number] 2.16.8 40.1.255954.3.579.2.627 1950 Unknown [id number] 2.16.8 40.1.931724.3.579.2.627 Unknown [id number] 2.16.8 40.1.335034.3.579.2.462 Unknown [id number] 2.16.8 40.1.814232.3.579.2.462 Unknown [id number] 2.16.8 40.1.446687.3.579.2.462 Unknown [id number] 2.16.8 40.1.399959.3.579.2.462 Unknown [id number] 2.16.8 40.1.866666.3.579.2.462 Unknown [id number] 2.16.8 40.1.244915.3.579.2.462 Unknown [id number] 2.16.8 40.1.550392.3.579.2.462 Unknown [id number] 2.16.8 40.1.005845.3.579.2.462 Unknown [id number] 2.16.8 40.1.961371.3.579.2.462 Unknown [id number] 2.16.8 40.1.260887.3.579.2.462 Unknown [id number] 2.16.8 40.1.719359.3.579.2.462 Unknown [id number] 2.16.8 40.1.181481.3.579.2.462 Unknown [id number] 2.16.8 40.1.300387.3.579.2.462 Unknown [id number] 2.16.8 40.1.105341.3.579.2.462 Unknown [id number] 2.16.8 40.1.141241.3.579.2.462 Unknown [id number] 2.16.8 40.1.689777.3.579.2.462 Unknown [id number] 2.16.8 40.1.646465.3.579.2.462 Unknown [id number] 2.16.8 40.1.779220.3.579.2.462 Unknown [id number] 2.16.8 40.1.333644.3.579.2.462 Unknown [id number] 2.16.8 40.1.379225.3.579.2.462 Unknown [id number] 2.16.8 40.1.363220.3.579.2.462 Unknown [id number] 2.16.8 40.1.535279.3.579.2.462 Unknown [id number] 2.16.8 40.1.089505.3.579.2.462 Unknown [id number] 2.16.8 40.1.694500.3.579.2.462 Unknown [id number] 2.16.8 40.1.369253.3.579.2.462 Unknown [id number] 2.16.8 40.1.521640.3.579.2.462 Unknown [id number] 2.16.8 40.1.790069.3.579.2.462 Unknown [id number] 2.16.8 40.1.667852.3.579.2.462 Unknown [id number] 2.16.8 40.1.823953.3.579.2.462 Unknown [id number] 2.16.8 40.1.095336.3.579.2.462 Unknown [id number] 2.16.8 40.1.577778.3.579.2.462 Unknown [id number] 2.16.8 40.1.494317.3.579.2.462 Unknown [id number] 2.16.8 40.1.568022.3.579.2.462 Unknown [id number] 2.16.8 40.1.908421.3.579.2.462 Unknown [id number] 2.16.8 40.1.790155.3.579.2.462 Unknown [id number] 2.16.8 40.1.907206.3.579.2.462 Unknown [id number] 2.16.8 40.1.868148.3.579.2.462 Unknown [id number] 2.16.8 40.1.966425.3.579.2.462 Social History Date Type Detail Facility Start: 10-16-2019 End: 03-21-2025 Never smoked tobacco (finding) [facility] Start: 1950 Sex Assigned At Female A [facility] Start: 09-04-2021 End: 09-04-2021 Tobacco smoking status NHIS Unknown if ever smoked [facility] Start: 03-03-2025 End: 03-21-2025 Sex Female (finding) [facility] Clinical Notes 12-10-2023 to 03-09-2025 Note Date & Type Note Facility 03-09-2025 History and physical note Note Date/Time March 09, 2025 11:13am [facility] Medical Records Department [address] [place] [address] History & Physical Exam 03/09/25 1108 MR#: [id number] Acct: [id number] Name: STELLA THURMAN Rep #:[id number] : 1950 74 From: Supriya COLLIER PCP: Dr. Hortensia Wesley, DO Status:PRE [facility] [place] [facility] History and Physical Date of Admission: 03/21/25 Stella Thurman is a 74 year old female with a history of heart failure reduced ejection fraction it was 20% earlier. She underwent direct-current cardioversion mid August 2024 that was successful in converting her to sinus rhythm and she has remained in sinus rhythm. She was having some issues with the atenolol that she is on due to side effects and we switched her to Coreg 3.125 mg twice daily. We have continued to try to titrate this upwards. The patient had an echocardiogram done 11/10/2024. That showed that her EF had improved to 30% there were no regional wall motion abnormalities her LV remains moderately dilated. RV was normal in size and function she had 2+ eccentric mitral regurg 1+ tricuspid regurg and her pulmonary artery systolic pressure wasestimated at 30 mmHg. The aortic and pulmonary valves were normal pulmonary artery aortic root and inferior vena cava were all normal. There was no pericardial effusion. She had a repeat echocardiogram in January 2025 which demonstrated an EF of 30%. Because her EF has remained the same it is recommended that she undergo a diagnostic heart catheterization. Based upon findings after that we will decide if she just needs a prophylactic ICD for her cardiomyopathy. Medical History PVC (premature ventricular contraction) PAF (paroxysmal atrial fibrillation) Osteopenia Hyperlipidemia Surgical History History of cardioversion (08/12/24) H/O dilation and curettage History of hysterectomy Family History Mother Breast cancer Congestive heart failure Osteoporosis Grandmother Diabetes Osteoporosis Social History household members: spouse and children current occupational status: retired history of recent travel: No Smoking Status: Never smoker alcohol intake: never substance use type: does not use caffeine: No what type of physical activity do you participate in: walking, yoga and weight training frequency: 3-4 times per week seatbelt use: always do you feel safe at home: Yes additional social history: - Dylan ROS Const Const: Negative for fatigue or weakness ENT ENT: Negative for dizziness or balance problems Cardio Chest Pain: No Palpitations: Yes (on 01/09/25 only, none since) Edema: None Muscle aches with walking: None Resp Respiratory: Negative for SOB with activity, SOB at rest or SOB orthopneaundefinedSOB lying down GI GI: Negative nausea, vomiting or heartburn Musc Musc: Negative for muscle weakness or balance problems Neuro Neuro: Negative for dizziness, lightheadedness, near syncope, syncope or weakness Endo Endo: Negative for fatigue Cardiology Exam Const Appearance: cooperative, comfortable and no acute distress Nutritional Appearance: thin Head Head: normal to inspection Eyes General: appearance normal, both eyes and all related structures Neck Neck: normal visual inspection and no JVD Carotids: Negative bruit Chest Chest inspection: normal inspection of the chest Auscultation: Bilateral: Clear to Auscultation Cardio Rate: regular rate Rhythm: regular rhythm and ectopic beats Heart sounds: S1 normal, S2 normal and murmur; Negative rub or gallop Murmur: Grade 1/6, soft, mid systolic and LLSB Neuro General: patient alert and patient oriented x3 Skin Skin: no rashes or lesions noted Extremities Lower Extremity Edema: None: Bilateral Psych Psychological: normal affect Assessment & Plan Assessment/Plan (1) Heart failure with reduced ejection fraction: (2) PAF (paroxysmal atrial fibrillation): (3) PVC (premature ventricular contraction): (4) Hyperlipidemia: PLAN: Plan Patient will proceed with a diagnostic heart catheterization. This will help assess whether or not her cardiomyopathy is ischemic related. If she has normalcoronary arteries would then recommend pursuing a prophylactic ICD. Patient will follow-up accordingly in the office. 03/09/25 1113 <Electronically signed by Supriya COLLIER> Cosigner Signature (if applicable): CC: Dr. Hortensia Wesley DO; NANDO Shaw~ Signed [facility] Work Phone: 1(821) 254-451004-09-2025 History and physical note [facility] Medical Records Department [address] [place] [id number] History & Physical Exam 03/09/25 1108 MR#: [id number] Acct: [id number] Name: STELLA THURMAN Rep #:[id number] : 1950 74 From: Supriya COLLIER PCP: Dr. Hortensia Wesley DO [place] [facility] [place]: [facility] History and Physical Date of Admission: 03/21/25 Stella Thurman is a 74 year old female with a history of heart failure reduced ejection fraction it was 20% earlier. She underwent direct-current cardioversion mid August 2024 that was successful inconverting her to sinus rhythm and she has remained in sinus rhythm. She was having some issues with the atenolol that she is on due to side effects and we switched her to Coreg 3.125 mg twice daily.We have continued to try to titrate this upwards. The patient had an echocardiogram done 11/10/2024. That showed that her EF had improved to 30% there were no regional wall motion abnormalities her LV remains moderately dilated. RV was normal in size and function she had 2+ eccentric mitral regurg 1 + tricuspid regurg and her pulmonary artery systolic pressure wasestimated at 30 mmHg. The aortic and pulmonary valves were normal pulmonary artery aortic root and inferior vena cava were all normal.There was no pericardial effusion. She had a repeat echocardiogram in January 2025 which demonstratedan EF of 30%. Because her EF has remained the same it is recommended that she undergo a diagnostic heart catheterization. Based upon findings after that we will decide if she just needs a prophylactic ICD for her cardiomyopathy. Medical History PVC (premature ventricular contraction) PAF (paroxysmal atrial fibrillation) Osteopenia Hyperlipidemia Surgical History History of cardioversion (08/12/24) H/O dilation and curettage History of hysterectomy Family History Mother Breast cancer Congestive heart failure Osteoporosis Grandmother Diabetes Osteoporosis Social History household members: spouse and children current occupational status: retired history of recent travel: No Smoking Status: Never smoker alcohol intake: never substance use type: does not use caffeine: No what type of physical activity do you participate in: walking, yoga and weight training frequency: 3-4 times per week seatbelt use: always do you feel safe at home: Yes additional social history: - Dylan ROS Const Const: Negative for fatigue or weakness ENT ENT: Negative for dizziness or balance problems Cardio Chest Pain: No Palpitations: Yes (on 01/09/25 only, none since) Edema: None Muscle aches with walking: None Resp Respiratory: Negative for SOB with activity, SOB at rest or SOB orthopneaundefinedSOB lying down GI GI: Negative nausea, vomiting or heartburn Musc Musc: Negative for muscle weakness or balance problems Neuro Neuro: Negative for dizziness, lightheadedness, near syncope, syncope or weakness Endo Endo: Negative for fatigue Cardiology Exam Const Appearance: cooperative, comfortable and no acute distress Nutritional Appearance: thin Head Head: normal to inspection Eyes General: appearance normal, both eyes and all related structures Neck Neck: normal visual inspection and no JVD Carotids: Negative bruit Chest Chest inspection: normal inspection of the chest Auscultation: Bilateral: Clear to Auscultation Cardio Rate: regular rate Rhythm: regular rhythm and ectopic beats Heart sounds: S1 normal, S2 normal and murmur; Negative rub or gallop Murmur: Grade 1/6, soft, mid systolic and LLSB Neuro General: patient alert and patient oriented x3 Skin Skin: no rashes or lesions noted Extremities Lower Extremity Edema: None: Bilateral Psych Psychological: normal affect Assessment & Plan Assessment/Plan (1) Heart failure with reduced ejection fraction: (2) PAF (paroxysmal atrial fibrillation): (3) PVC (premature ventricular contraction): (4) Hyperlipidemia: PLAN: Plan Patient will proceed with a diagnostic heart catheterization. This will help assess whether or not her cardiomyopathy is ischemic related. If she has normalcoronary arteries would then recommend pursuing a prophylactic ICD. Patient will follow-up accordingly in the office. 03/09/25 1113 Cosigner Signature (if applicable): CC: Dr. Hortensia Wesley DO; NANDO Shaw~ Signed [facility]04-09-2025 [facility]03-14-2025 Evaluation note* Diagnosis Onset Date Resolution Status Admit Date Heart failure with reduced ejection fraction acute February 11 11:23am PAF (paroxysmal atrial fibrillation) acute February 11, 2025 11:23am PVC (premature ventricular contraction) acute February 11, 2025 11:23am Heart failure with reduced ejection fraction acute March 21 6:53am Hyperlipidemia acute March 6:53am PAF (paroxysmal atrial fibrillation) acute March 21, 2025 6:53am PVC (premature ventricular contraction) acute March 21, 2025 6:53am Heart failure with reduced ejection fraction acute May 11 2:18pm [facility] [employer] Work Phone: 1(448) 823-274701-24-2025 Evaluation note* Diagnosis Onset Date Resolution Status Admit Date Heart failure with reduced ejection fraction acute December 24, 2024 9:22am Hyperlipidemia acute December 242024 9:22am PAF (paroxysmal atrial fibrillation) acute December 24 9:22am PVC (premature ventricular contraction) acute December 24 9:22am Heart failure with reduced ejection fraction acute February 11 11:23am PAF (paroxysmal atrial fibrillation) acute February 11, 2025 11:23am PVC (premature ventricular contraction) acute February 11, 2025 11:23am Heart failure with reduced ejection fraction acute March 21 6:53am Hyperlipidemia acute March 6:53am PAF (paroxysmal atrial fibrillation) acute March 21, 2025 6:53am PVC (premature ventricular contraction) acute March 21, 2025 6:53am [facility] Work Phone: 1(804) 103-828912-13-2024 Evaluation note* Diagnosis Onset Date Resolution Status Admit Date Heart failure with reduced ejection fraction acute November 12, 2024 10:44am New onset atrial fibrillation acute November 12, 2024 10:44am Heart failure with reduced ejection fraction acute December 24, 2024 9:22am Hyperlipidemia acute December 242024 9:22am PAF (paroxysmal atrial fibrillation) acute December 24 9:22am PVC (premature ventricular contraction) acute December 24 9:22am Heart failure with reduced ejection fraction acute February 11 11:23am PAF (paroxysmal atrial fibrillation) acute February 11, 2025 11:23am PVC (premature ventricular contraction) acute February 11, 2025 11:23am [facility] Work Phone: 1(107) 421-984608-08-2024 [facility]01-10-2024 Evaluation + Plan note Diagnostic Tests Pending * Antinuclear Antibody Screen, Serum 12/10/23 [facility] Evaluation + Plan note No data available for this section [facility] Evaluation noteNo assessment information available [facility] Work Phone: Hospital Discharge instructions No data available for this section [facility] Progress note No data available for this section [facility] Reason for referral (narrative)No reason for referral information available[facility] Work Phone: Summary Purpose Family History No Family History Records Found Relationship Condition Age at Onset Recorded Date/T rylee mother Malignant neoplasm of breast Unknown Congestive heart failure Unknown Osteoporosis Unknown grandmother Diabetes mellitus Unknown Advance Directives No Advanced Directives Records Found Advance Directive Response Recorded Date/ Time Living Will Yes August 12, 2024 11:26am Do you have a Healthcare Power of Doll Surgeon? Yes August 12, 2024 11:26am Advance Directives Yes August 11:26am Advance Directive Response Recorded Date/ Time Living Will No March 21, 2025 7:16am Do you have a Healthcare Power of Doll Surgeon? No March 21, 2025 7:16am Advance Directives No March 21 7:16am Chief Complaint and Reason for Visit Chief Complaint SCREENING/OSTEO Chief Complaint Admit Date CHF November 10, 2024 1:43pm Fatigue- See Clinical Note October 10:44am 6 W FU December 24, 2024 9 :22am 2 M FU February 11, 2025 11: 23am [place], COMPARE TO 10/2024 ECHO LV FUNCTION February 28, 2025 9:50am Reason for Visit Admit Date Heart failure with reduced ejection frac tion November 12, 2024 10:44am New onset atrial fibrillation October 312023 10:44am Heart failure with reduced ejection frac tion December 24, 2024 9:22am Hyperlipidemia December 24, 2024 9 :22am PAF (paroxysmal atrial fibrillation) [facility] 2024 9:22am PVC (premature ventricular contraction) December 24, 2024 9:22am Heart failure with reduced ejection frac tion February 11, 2025 11:23am PAF (paroxysmal atrial fibrillation) [facility] 2024 11:23am PVC (premature ventricular contraction) February 11, 2025 11:23am Chief Complaint Admit Date 6 W FU December 24, 2024 9 :22am 2 M FU February 11, 2025 11: 23am [place], COMPARE TO 10/2024 ECHO LV FUNCTION February 28, 2025 9:50am PVC'S March 09, 2025 11:0 8am PVC'S March 21, 2025 6:5 3am Reason for Visit Admit Date Heart failure with reduced ejection frac tion December 24, 2024 9:22am Hyperlipidemia December 24, 2024 9 :22am PAF (paroxysmal atrial fibrillation) [facility] 2024 9:22am PVC (premature ventricular contraction) December 24, 2024 9:22am Heart failure with reduced ejection frac tion February 11, 2025 11:23am PAF (paroxysmal atrial fibrillation) [facility] 2024 11:23am PVC (premature ventricular contraction) February 11, 2025 11:23am Heart failure with reduced ejection frac tion March 21, 2025 6:53am Hyperlipidemia March 21, 2025 6:5 3am PAF (paroxysmal atrial fibrillation) Mar 6:53am PVC (premature ventricular contraction) March 21, 2025 6:53am Chief Complaint Admit Date 2 M FU February 11, 2025 11: 23am [place], COMPARE TO 10/2024 ECHO LV FUNCTION February 28, 2025 9:50am PVC'S March 09, 2025 11:0 8am PVC'S March 21, 2025 6:5 3am RIGHT ARM PAIN SWELLING March 30, 2025 12:46pm 3 M FU May 11, 2025 2:18 pm Reason for Visit Admit Date Heart failure with reduced ejection frac tion February 11, 2025 11:23am PAF (paroxysmal atrial fibrillation) [facility] 2024 11:23am PVC (premature ventricular contraction) February 11, 2025 11:23am Heart failure with reduced ejection frac tion March 21, 2025 6:53am Hyperlipidemia March 21, 2025 6:5 3am PAF (paroxysmal atrial fibrillation) Mar 6:53am PVC (premature ventricular contraction) March 21, 2025 6:53am Heart failure with reduced ejection frac tion May 11, 2025 2:18pm Additional Source Comments INFORMATION SOURCE (unrecogn ized section and content) DATE CREATED AUTHOR 05/25/2018 [facility] Ce loren Carver DATE CREATED AUTHOR AUTHOR'S ORGANIZ ATION 04/22/2024 [facility] ([place]) DATE CREATED AUTHOR AUTHOR'S ORGANIZ ATION 04/30/2025 [facility] DATE CREATED AUTHOR AUTHOR'S ORGANIZ ATION 05/14/2025 [facility] Goals (unrecognized section and content) Goals may be documented in a n alternate section Care Team (unrecognized sect ion and content) Care Team Personnel Name: HORTENSIA WESLEY DO Member Role: Primary Care Physician Address: Address: [address] [place] [address] [address] [place] [id number] Patient Care team informatio n (unrecognized section and content) Team Status: Active Member Role Status Dates Dr. Hortensia Wesley DO Family Provider Active Dr. Hortensia Wesley DO Primary Care Provider Active Team Status: Inactive Member Role Status Dates Dr. Hortensia Wesley DO Primary Care Provider Active PABLITO Watts Attending Provider Active Team Status: Active Member Role Status Dates Dr. Hortensia Wesley DO Primary Care Provider Active Team Status: Inactive Member Role Status Dates Dr. Hortensia Wesley DO Primary Care Provider Active Start: November 10, 2024 End: November 10, 2024 Dr. Alonso Falcon MD Attending Provider Active Start: November 10, 2024 End: November 10, 2024 Dr. Alonso Falcon MD Referring Provider Active Start: November 10, 2024 End: November 10, 2024 Team Status: Active Member Role Status Dates Dr. Hortensia Wesley DO Primary Care Provider Active Start: November 10, 2024 Dr. Vinny Ruiz MD Attending Provider Active S tart: November 10, 2024 Team Status: Inactive Member Role Status Dates Dr. Hortensia Wesley DO Primary Care Provider Active Start: November 12, 2024 End: November 12, 2024 Dr. Hortensia Wesley DO Referring Provider Active St art: November 12, 2024 End: November 12, 2024 Dr. Alonso Falcon MD Attending Provider Active Start: November 12, 2024 End: November 12, 2024 Team Status: Inactive Member Role Status Dates Dr. Hortensia Wesley DO Primary Care Provider Active Start: December 24, 2024 End: December 24, 2024 Dr. Hortensia Wesley DO Referring Provider Active St art: December 24, 2024 End: December 24, 2024 Supriya Payton PA, PA Attending Provider Active Start: December 24, 2024 End: December 24, 2024 Team Status: Inactive Member Role Status Dates Dr. Hortensia Wesley DO Primary Care Provider Active Start: February 11, 2025 End: February 11, 2025 Dr. Hortensia Wesley DO Referring Provider Active St art: February 11, 2025 End: February 11, 2025 Dr. Alonso Falcon MD Attending Provider Active Start: February 11, 2025 End: February 11, 2025 Team Status: Inactive Member Role Status Dates Dr. Hortensia Wesley DO Primary Care Provider Active Start: February 28, 2025 End: February 28, 2025 Dr. Alonso Falcon MD Attending Provider Active Start: February 28, 2025 End: February 28, 2025 Dr. Alonso Falcon MD Referring Provider Active Start: February 28, 2025 End: February 28, 2025 Team Status: Active Member Role Status Dates Dr. Hortensia Wesley DO Primary Care Provider Active Start: February 28, 2025 Dr. Vinny Ruiz MD Attending Provider Active S tart: February 28, 2025 Team Status: Active Member Role Status Dates Dr. Hortensia Wesley DO Primary Care Provider Active Start: March 09, 2025 Dr. Vinny Ruiz MD Other Provider Active Start : March 09, 2025 Supriya Payton PA, PA Attending Provider Active Start: March 09, 2025 Team Status: Inactive Member Role Status Dates Dr. Hortensia Wesley DO Primary Care Provider Active Start: March 21, 2025 End: March 21, 2025 Dr. Vinny Ruiz MD Attending Provider Active S tart: March 21, 2025 End: March 21, 2025 Dr. Vinny Ruiz MD Referring Provider Active S tart: March 21, 2025 End: March 21, 2025 Team Status: Inactive Member Role Status Dates Dr. Hortensia Wesley DO Primary Care Provider Active Start: March 30, 2025 End: March 30, 2025 Dany Granados MACHINE FIXER, MACHINE FIXER-C Attending Provider Active S tart: March 30, 2025 End: March 30, 2025 Dany Granados MACHINE FIXER, MACHINE FIXER-C Referring Provider Active S tart: March 30, 2025 End: March 30, 2025 Team Status: Active Member Role Status Dates Dr. Hortensia Wesley DO Primary Care Provider Active Start: March 30, 2025 Dr. Jam Gutierrez MD Attending Provider Active S tart: March 30, 2025 Team Status: Inactive Member Role Status Dates Dr. Hortensia Wesley DO Primary Care Provider Active Start: May 11, 2025 End: May 11, 2025 Dr. Hortensia Wesley DO Referring Provider Active St art: May 11, 2025 End: May 11, 2025 Dr. Alonso Falcon MD Attending Provider Active Start: May 11, 2025 End: May 11, 2025 FOR RECORDS PERTAINING TO PATIENTS WHO ARE OR HAVE BEEN ENROLLED IN A CHEMICAL DEPENDENCY/SUBSTANCEABUSE PROGRAM, SOME INFORMATION MAY BE OMITTED. This clinical summary was aggregated from multiple sources. Caution should be exercised in using it in the provision of clinical care. This summary normalizes information from multiple sources, and as a consequence, information in this document may materially change the coding, format and clinical context of patient data. In addition, data may be omitted in some cases. CLINICAL DECISIONS SHOULD BE BASED ON THE PRIMARY CLINICAL RECORDS. [employer] provides no warranty or guarantee of the accuracy or completeness of information in this document.
[2025-05-18 09:53] LABS: Anion Gap 10 (5-15); BUN 17 mg/dL (4-19); BUN/Creat Ratio 17.1 RATIO (10-20); Calcium,Total 9.3 mg/dL (7.6-11.0); Carbon Dioxide 28.3 mmol/L (21.0-32.0); Chloride 101 mmol/L (98-108); Creatinine, Serum 1.02 mg/dL (0.70-1.20); EST Glomerular Filtration Rate 58 (>60); Glucose 92 mg/dL (70-99); Potassium 4.3 mmol/L (3.3-5.1); Sodium Level 140 mmol/L (133-145)
== END | disposition home or self-care (01) ==
LOC: LAB 07:48
PROVIDERS: PCP Family Medicine; Referring Provider Internal Medicine Cardiovascular Disease; Visit Provider Internal Medicine Cardiovascular Disease
DX: I50.20 Unspecified systolic (congestive) heart failure (principal)
CPT/HCPCS: 36415; 80048

== ENCOUNTER → 2025-08-23 | Outpatient (CLI) | payer MEDICARE, OTHER, SELFPAY ==
--- NOTE | 2025-08-23 14:45 | RAD_ITS ---
PROCEDURE: CHEST PA AND LATERAL 08/23/2025 REASON FOR EXAM: FOR DICD IMPLANT 11/03/25 TECHNIQUE: Procedure Code: RADCXR Modality: DX Procedure: CHEST PA AND LATERAL COMPARISON: Portable chest, 10/31/2020. FINDINGS: The lungs are clear. There is cardiomegaly. There is calcific vascular disease of the thoracic aorta. There is calcific vascular disease of the coronary arteries. The upper abdominal bowel gas pattern is normal. There are no significant bony abnormalities of the chest. RAD/Chest PA and Lateral IMPRESSION: Cardiomegaly. Reading Location: [id number]
[2025-08-23 14:57] LABS: Mucous, Urine 0 SEEN /hpf (<or=2+); Squamous Epithelial Cells - UA 0 SEEN /hpf (5-10)
[2025-08-23 15:51] LABS: Color, Urine Yellow (Yellow); Glucose, Dipstick Normal (Normal); Ketone-Dipstick Negative (Negative); Leukocyte Esterase-Dipstick Negative /ul (Negative); Nitrite-Dipstick Negative (Negative); Occult Blood-Urine 10 /ul (Negative); Protein-Dipstick Negative (Negative); Specific Gravity, Urine 1.010 (1.002-1.030); Urine Bilirubin Dipstick Negative (Negative)
[2025-08-23 16:01] LABS: Red Blood Cells-Urine 0-5 SEEN /hpf (0-5)
[2025-08-23 16:09] LABS: Hematocrit 41.8 % (37-47); Hemoglobin 13.6 g/dL (12.0-15.0); Mean Corp Hgb Conc 32.5 g/dL (32-36); Mean Corpuscular Volume 93.1 fL (81-99); Mean Platelet Vol. 10.4 fl (6.2-12.0); Platelet Count 221 K/mm3 (150-450); RBC Distribution Width CV 13.5 % (11.6-14.6); RBC Distribution Width SD 46.8 fl (35.1-43.9); Red Blood Count 4.49 M/mm3 (4.2-5.4); White Blood Count 5.4 K/mm3 (4.4-11.0)
[2025-08-23 16:23] LABS: Prothrombin Time (Protime)PT. 14.2 SECONDS (11.7-14.9)
[2025-08-23 16:26] LABS: Anion Gap 11 (5-15); BUN 24 mg/dL (4-19); BUN/Creat Ratio 20.3 RATIO (10-20); Calcium,Total 9.5 mg/dL (7.6-11.0); Carbon Dioxide 27.2 mmol/L (21.0-32.0); Chloride 102 mmol/L (98-108); Glucose 85 mg/dL (70-99); Potassium 5.3 mmol/L (3.3-5.1)
== END | disposition home or self-care (01) ==
LOC: RAD 14:38
PROVIDERS: PCP Family Medicine; Referring Provider Internal Medicine Clinical Cardiac Electrophysiology; Visit Provider Internal Medicine Clinical Cardiac Electrophysiology
DX: I50.20 Unspecified systolic (congestive) heart failure (principal); I48.0 Paroxysmal atrial fibrillation
CPT/HCPCS: 36415; 71046; 80048; 81001; 85027; 85610

== ENCOUNTER → 2025-08-31 | Outpatient (CLI) | payer MEDICARE, OTHER, SELFPAY ==
--- NOTE | 2025-08-31 14:25 | BI_ITS ---
EXAM: SCRN MAMM (CAD)W/GRANT BILAT DATE: 08/31/2025 CLINICAL HISTORY: F, Age 74 y/o , SCREENING TECHNIQUE: Procedure Code: [id number] Modality: MG Procedure: SCRN MAMM (CAD)W/GRANT BILAT COMPARISON: Prior exam(s) were compared FINDINGS: TISSUE DENSITY: The breasts are heterogeneously dense, which may obscure small masses. Bilateral Breast Mammographic Findings: No suspicious masses, calcifications or other abnormalities are identified. BI/SCRN MAMM (CAD)W/GRANT BILAT IMPRESSION: No mammographic evidence of malignancy in either breast. OVERALL FINAL ASSESSMENT BI-RADS 1: NEGATIVE. RECOMMENDATION: Routine annual follow-up in 1 Year Additional Recommendation none A letter with findings and recommendations will be mailed to the patient. Reading Location: [id number]
--- NOTE | 2025-08-31 14:25 | BI_ITS ---
EXAM: SCRN MAMM (CAD)W/GRANT BILAT DATE: 08/31/2025 CLINICAL HISTORY: F, Age 74 y/o , SCREENING TECHNIQUE: Procedure Code: [id number] Modality: MG Procedure: SCRN MAMM (CAD)W/GRANT BILAT COMPARISON: Prior exam(s) were compared FINDINGS: TISSUE DENSITY: The breasts are heterogeneously dense, which may obscure small masses. Bilateral Breast Mammographic Findings: No suspicious masses, calcifications or other abnormalities are identified. BI/SCRN MAMM (CAD)W/GRANT BILAT IMPRESSION: No mammographic evidence of malignancy in either breast. OVERALL FINAL ASSESSMENT BI-RADS 1: NEGATIVE. RECOMMENDATION: Routine annual follow-up in 1 Year Additional Recommendation none A letter with findings and recommendations will be mailed to the patient. Reading Location: [id number]
--- NOTE | 2025-08-31 14:30 | BD_ITS ---
PROCEDURE: DEXA BONE DENSITY STUDY 08/31/2025 REASON FOR EXAM: F, age 74 y/o . Postmenopausal screening. TECHNIQUE: Procedure Code: BDDBD Modality: DX Procedure: DEXA BONE DENSITY STUDY COMPARISON: 2018 FINDINGS: BMD and T-SCORES Lumbar spine: 0.763 g/cm2, T-score -2.6 Levels: L1 through L4 Change from prior: Decrease of 5.7%. Left femoral neck: 0.592 g/cm2, T-score -2.3 Femoral neck comparison data not recommended for monitoring change. Prior T-score Left total hip: 0.759 g/cm2, T-score -1.5 Change from prior: Increase of 0.1%. Right femoral neck: 0.577 g/cm2, T-score -2.5 Femoral neck comparison data not recommended for monitoring change. Prior T-score Right total hip: 0.748 g/cm2, T-score -1.6 Change from prior: Decrease of 1.8%. The World Health Organization has defined the following categories based on bone density: Normal bone density: T-score equal to or greater than -1.0 Osteopenia: T-score between -1.0 and -2.5 Osteoporosis: T-score equal to or less than -2.5 FRAX (or Comparable) Fracture Risk Assessment: 10 Year Probability of Fracture: Major Osteoporotic Fracture: 14% Hip Fracture: 4.1% (Note: FRAX is not to be reported in setting of normal range bone density, osteoporosis on DEXA, known history of osteoporosis, prior osteoporotic hip or vertebral fracture, or for any patient undergoing pharmacological treatment for bone loss.) The National Osteoporosis Foundation (NOF) recommends pharmacological treatment for patients with a FRAX 10-year risk of 3% or higher for a hip fracture, or 20% or higher for a major osteoporotic fracture, to prevent osteoporosis and reduce fracture risk. The patient does meet the pharmacological treatment recommendations for prevention of osteoporosis. BD/Dexa Bone Density Study IMPRESSION: OSTEOPOROSIS. Recommend follow-up as clinically warranted. Reading Location: [id number]
== END | disposition home or self-care (01) ==
LOC: OPBD 14:24
PROVIDERS: PCP Family Medicine; Referring Provider Family Medicine; Visit Provider Family Medicine
DX: Z12.31 Encounter for screening mammogram for malignant neoplasm of breast (principal); Z78.0 Asymptomatic menopausal state; M81.0 Age-related osteoporosis without current pathological fracture
CPT/HCPCS: 77063; 77067; 77080

== ENCOUNTER 2025-09-08 12:04 | Observation (INO) | payer MEDICARE, OTHER, SELFPAY ==
[2025-08-31 16:32] LABS: Anion Gap 11 (5-15); BUN 20 mg/dL (4-19); BUN/Creat Ratio 19.0 RATIO (10-20); Calcium,Total 9.2 mg/dL (7.6-11.0); Carbon Dioxide 26.9 mmol/L (21.0-32.0); Chloride 103 mmol/L (98-108); Glucose 87 mg/dL (70-99); Potassium 4.5 mmol/L (3.3-5.1)
[2025-09-07 09:06] VITALS: BMI 22.9
[2025-09-08] VITALS (11 sets, daily range): BP systolic 91–138; BP diastolic 52–120; PULSE 70–88; RESP 11–20; TEMP 36.5; O2SAT 94–98
--- NOTE | 2025-09-08 10:30 | EX.DEFIBPROC ---
Defibrillator Procedure Note Defibrillator Procedure Note Procedure: Successful dual chamber ICD implantation. Indication: Primary Prevention Nonischemic Cardiomyopathy NYHA Class II LVEF 30% Paroxysmal atrial fibrillation Findings: The patient was brought to the EP LAB in the fasting well-hydrated state and prepped and draped in the usual sterile fashion. Local anesthesia with 2% lidocaine was used to achieve a numbing effect in the LEFT pectoral region. In addition, iv anesthesia was administered by anesthesia personnel present throughout the case. An incision was made 2 fingerbreadths below the left clavicle and a pocket was made by blunt dissection. Bleeding vessels were coagulated using electrocautery. Using modified Seldinger technique, two guidewires was placed into the left axillary vein down to the low RA. Through a venous sheath the RV lead was passed into the RV apex. The active screw mechanism was extended. Adequate pacing and sensing thresholds were measured. Diaphragmatic stimulation was excluded with high output pacing. The introducer sheath was peeled away. Next using the second guidewire a introducer sheath was attempted to be placed into the central circulation. The 6F sheath could not be passed over the guidewire due to tightness under the clavicle. A separate venous access was obtained and a 6F sheath was easily passed into the central circulation. Through the venous sheath an active-fixation right atrial lead was passed in the right atrium the active screw mechanism was deployed and the lead was attached to the myocardium. Adequate pacing and sensing thresholds were measured. Diaphragmatic stimulation was excluded with high output pacing. The introducer sheath was peeled away. The leads were secured in the pocket using 0-Ethibond with initial suture tie made to the pectoralis muscle and fascia, followed by wrapping around and tying securely to the lead sleeves. In addition, a purse string suture was tied around the leads entry site with 2-0 Vicryl for hemostasis. The leads were connected to the dual chamber ICD pulse generator. The pocket was irrigated with antibiotic solution. The pulse generator was placed into the pocket with redundant lead allowed to form a jake coil behind the pulse generator. The pocket was closed in 2 layers with 2-0 and 3-0 Vicryl for the subcutaneous and subcuticular layers respectively. Hemostasis was achieved with manual pressure. Upon closure no bleeding was noted. A sterile dressing was applied. The patient was recovered and sent to their room in stable condition. Complications: none. Specimens: none. Estimated blood loss: 10mL. Implanted Product Information Implant Date Coding Quality Analyst Model Name Gomez. Model Serial No. Location 09/08/2025 [employer] D233: VIGILANT EL ICD DF4 - DR D233 [id number] L - Subcutaneous 09/08/2025 [employer] 7840: INGEVITY+ IS-1 Bi Positive Fix RA/RV 45cm Bi [id number] RA 09/08/2025 [employer] 0672: RELIANCE 4-FRONT S Active Fix Single Coil 59cmBi 0672 [id number] RV Measured Data Device Measurements Lead Intrinsic Threshold Imp. Shock Imp. Current RA 2.4 mV Afib 647 ? 0.0 mA RV 13.9 mV 0.6V @ 0.4ms 567 ? 78 ? 1.1 mA DFT Testing Information DFT Testing not Performed. Programmed Parameters Mode: DDD RYTHMIQ: OFF LRL / MTR : 60 ppm / 130 ppm PAV Delay: 150ms - 200ms EKNJI Delay: 130ms - 170ms AV Search + : On - 360ms Sensitivity Output RA 0.25 mV 3.5V @ 0.4ms RV 0.6 mV 3.5V @ 0.4ms PVARP: 240ms - 300ms ATR Mode Switch: On - 170 bpm Atrial Flutter Response: On VRR: Off Rate Smoothing: Off Rate Hysteresis: Off HeartLogic: On ICD Therapy Parameters Zone Rate Duration Therapy VF 185 bpm 2.5 sec. Quick Convert, 41J x 1, 41J x 1, 41J x 6 Lead Polarity: Initial Shock Vector: Distal Coil to Can
--- NOTE | 2025-09-08 12:50 | RAD_ITS ---
PROCEDURE: CHEST 1 VIEW (PORTABLE) 09/08/2025 REASON FOR EXAM: DO WITHIN 2-4 HOURS OF PROCEDURE TECHNIQUE: Frontal view of the chest. COMPARISON: August 23, 2025 FINDINGS: Hardware: Dual lead AICD has lead tips over the right atrium and right ventricular apex. EKG leads are seen. Heart: Enlarged. Lungs: Clear. No pneumothorax or pleural effusion. Bones: The bones are unremarkable. RAD/Chest 1 View (Portable) IMPRESSION: No acute abnormality. Reading Location: [id number]
[2025-09-09 03:35] VITALS: BP 104/66; PULSE 63; RESP 14; TEMP 36.5; O2SAT 98
--- NOTE | 2025-09-09 05:10 | RAD_ITS ---
PROCEDURE: CHEST 3 VIEW 09/09/2025 REASON FOR EXAM: POST PERMANENT ICD/PACEMAKER TECHNIQUE: Procedure Code: RADCXRPALATOB Modality: DX Procedure: CHEST 3 VIEW COMPARISON: 09/08/2025. FINDINGS: AICD is in good position. The lungs are expanded. There is no demonstrated parenchymal abnormality. There is no demonstrated pleural abnormality. Enlarged cardiac silhouette. Normal mediastinum and moncho. Normal visualized pulmonary arteries. Atheromatous plaques of the visualized aortic arch and descending thoracic aorta. Diffuse spondylosis of the visualized thoracic spine. Normal visualized ribs, clavicles. Degenerative joint disease. There is no demonstrated abnormality of the visualized soft tissue structures of the upper abdomen. RAD/Chest 3 View IMPRESSION: No evidence for acute abnormality. Reading [facility]
[2025-09-09 08:51] VITALS: BP 147/92; PULSE 76; RESP 17; TEMP 36.4; O2SAT 99
--- NOTE | 2025-09-09 09:33 | CASEMGMT ---
Patient has order for discharge. RN CM in to discuss needs at discharge, spouse at bedside. Patient denies needs or help at discharge. Patient had no further questions or concerns.
--- NOTE | 2025-09-09 09:41 | PHA.DC.MR.R ---
Pharmacy [facility] Med Reconciliation Pharmacy Service has performed discharge medication reconciliation for this patient. The patient's discharge medication list was reviewed for discrepancies and discrepancies were resolved. Medications at Discharge Home Medications flaxseed oil 1,000 mg PO DAILY supplement 12/24/24 mecobalamin (vitamin B12) 1,000 mcg chewable tablet 1,000 mcg PO QDAY vitamin #90 tabs 01/07/25 calcium 600 mg (as carbonate)-vit D3 10 mcg (400 unit) chewable tablet (Calcium 600 with Vitamin D3) 1 tab PO DAILY supplement 02/11/25 carvedilol 6.25 mg tablet 6.25 mg PO BID blood pressure #180 tabs 04/07/25 losartan 50 mg tablet 50 mg PO DAILY blood pressure #90 tabs 05/11/25 apixaban 5 mg tablet (Eliquis) 5 mg PO BID blood thinner #60 tabs 07/25/25 spironolactone 25 mg tablet 12.5 mg (1/2 x 25 mg) PO DAILY diuretic #45 tabs 08/31/25
--- NOTE | 2025-09-09 10:29 | DCINST_ITS ---
Discharge Instructions DC O2, CPAP, BIPAP needs Home O2 Discharge instructions: No Dressing / Incision Additional Activity Instructions:: follow the instructions that were given to you by Yamilet Dressing / Incision Call your doctor if your incision/area has: Continuous Slow Oozing, Sudden Increased Bleeding and Foul Smelling Discharge Call your doctor if you observe: Fever of 101 or Higher Additional Dressing/Incision Instructions:: follow instructions given to you by Yamilet Follow Up Care Please Follow Up With: Lashanda Tinajero When: 09/14/2025 Test Results: Test results from this visit will be discussed in further detail at your follow- up appointment, if applicable. Discharge Plan Admission Admit Date/Time: 09/08/25 12:04 Primary Reason for Your Visit: ICD Implantation Attending Provider: Rinku Maria Primary Care Provider: Hortensia Wesley Instructions Patient Instructions: ICD Discharge Orders/Prescriptions Prescriptions: Continued Calcium 600 with Vitamin D3 600 mg-10 mcg (400 unit) tablet,chewable 1 tab PO DAILY losartan 50 mg tablet 50 mg PO DAILY Qty: 90 3RF flaxseed oil 1,000 mg PO DAILY mecobalamin (vitamin B12) 1,000 mcg tablet,chewable 1,000 mcg PO QDAY Qty: 90 3RF carvedilol 6.25 mg tablet 6.25 mg PO BID Qty: 180 3RF Rx Instructions: must administer with a meal/food Eliquis 5 mg tablet 5 mg PO BID Qty: 60 11RF spironolactone 25 mg tablet 12.5 mg PO DAILY Qty: 45 3RF Referrals / Follow Up: Hortensia Wesley DO [Primary Care Provider, Family Practice] Disposition Disposition (needs filled in before D/C Order can be placed): Home, Self Care
== END 2025-09-09 11:30 | disposition home or self-care (01) ==
LOC: CLSP 12:09 → PCU 12:09
PROVIDERS: Physician Assistant Medical; Admitting Provider Internal Medicine Clinical Cardiac Electrophysiology; PCP Family Medicine; Referring Provider Internal Medicine Clinical Cardiac Electrophysiology; Visit Provider Internal Medicine Clinical Cardiac Electrophysiology
DX: Z45.02 Encounter for adjustment and management of automatic implantable cardiac defibrillator (principal); I48.0 Paroxysmal atrial fibrillation; I42.0 Dilated cardiomyopathy; Z79.899 Other long term (current) drug therapy; Z79.01 Long term (current) use of anticoagulants; E78.5 Hyperlipidemia, unspecified; I49.3 Ventricular premature depolarization; R06.02 Shortness of breath
CPT/HCPCS: 33249; 36415; 71045; 71047; 80048; 99152; 99153; 99221; G0378